=== PATIENT | male | born 1965 | race African-American/Black ===

== ENCOUNTER 2016-07-13 23:29 | Emergency (ER) | payer OTHER ==
[~2016-07-13] VITALS: Ht 172.7 cm; Wt 95.0 kg
[~2016-07-13 23:29] MED LIST: CYCL-36 PO; CYCL1TAB29 PO; DICL75TA PO; GABA300C3 PO; LEVEMIR SQ
[2016-07-13 23:31] VITALS: BP 157/94; PULSE 88; RESP 20; TEMP 97.9; O2SAT 100
[2016-07-14] MEDS ORDERED: LEVEMIR SQ (00:03)
[2016-07-14] MEDS ORDERED: GABA300C5 PO (00:03)
[2016-07-14] MEDS ORDERED: KETOROLAC TROMETHAMINE 60 MG/2 ML (IM) VIAL IM ONE ×2 (00:15→01:00)
[2016-07-14] MEDS ORDERED: ORPHENADRINE INJ 60 MG/2 ML AMP IM ONE (00:15)
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
[2016-07-14 01:07] LABS: AUTOMATED NEUTROPHIL # 3.8 TH/MM3 (1.8-7.7); BASOPHIL % 0.3 % (0.0-2.0); EOSINOPHIL # 0.1 TH/MM3 (0-0.4); EOSINOPHIL % 1.1 % (0.0-4.0); HEMO FLAGS DIFF FINAL; LYMPH % 32.2 % (9.0-44.0); LYMPHOCYTE # 2.1 TH/MM3 (1.0-4.8); MEAN CELL VOLUME 86.2 FL (80.0-100.0); MEAN CORPUSCULAR HEMOGLOBIN 29.4 PG (27.0-34.0); MEAN CORPUSCULAR HGB CONC 34.1 % (32.0-36.0); MONO % 9.9 % (0.0-8.0); NEUT % 56.5 % (16.0-70.0); PLATELET COUNT 291 TH/MM3 (150-450); RED BLOOD COUNT 4.99 MIL/MM3 (4.50-5.90); RED CELL DISTRIBUTION WIDTH 14.1 % (11.6-17.2); WHITE BLOOD COUNT 6.7 TH/MM3 (4.0-11.0)
--- NOTE | 2016-07-14 01:09 | RADRPT ---
EXAM DATE/TIME: 07/14/2016 00:27 [facility] COMPARISON: No previous studies available for comparison. INDICATIONS : Lower back pain. MEDICAL HISTORY : Cardiovascular disease. Hypertension. Hernia, hiatal.Diabetes. SURGICAL HISTORY : None. ENCOUNTER: Initial ACUITY: 4 - 6 months PAIN SCORE: 9/10 LOCATION: Bilateral lower back FINDINGS: The alignment is satisfactory. There is no evidence of fracture or destructive change. Mild degenerat toshia changes present with disc space narrowing most notably at the lumbosacral junction and small endp late osteophytes most notably at L4-5 and L5-S1 levels. CONCLUSION: Mild degenerative change. No acute bony process. Homero Alba MD on July 14, 2016 at 1:05 Board Certified Radiologist. This report was verified electronically.
[2016-07-14 01:15] LABS: AMPHETAMINE, URINE NEG (NEG); BARBITURATES, URINE NEG (NEG); COCAINE, URINE POS (NEG)
[2016-07-14 01:20] LABS: ALT (GPT) 36 U/L (12-78); ANION GAP 8 MEQ/L (5-15); AST (GOT) 16 U/L (15-37); BICARBONATE 26.5 MEQ/L (21.0-32.0); BLOOD UREA NITROGEN 16 MG/DL (7-18); CHLORIDE 104 MEQ/L (98-107); GLOMERULAR FILTRATION RATE 96 ML/MIN (>89); SODIUM (NA) 138 MEQ/L (136-145)
[2016-07-14 01:23] LABS: ALKALINE PHOSPHATASE 137 U/L (45-117); TOTAL BILIRUBIN ADULT 0.3 MG/DL (0.2-1.0)
[2016-07-14] MEDS ORDERED: ROBA500T PO (01:26)
== END 2016-07-14 01:41 | disposition home or self-care (01) ==
LOC: NEPB 23:29
DX: M54.9 Dorsalgia, unspecified (principal); G89.29 Other chronic pain; F12.10 Cannabis abuse, uncomplicated; I10 Essential (primary) hypertension; E11.9 Type 2 diabetes mellitus without complications; K21.9 Gastro-esophageal reflux disease without esophagitis
CPT/HCPCS: 72100; 80053; 80307; 85025; 96372; 99284; J1885; J2360

== ENCOUNTER 2016-09-22 13:49 | Emergency (ER) | payer OTHER ==
[~2016-09-22] VITALS: Ht 172.7 cm; Wt 100.0 kg
[~2016-09-22 13:49] MED LIST changes: -CYCL-36 PO; -CYCL1TAB29 PO; -DICL75TA PO; -GABA300C3 PO; +GABA300C5 PO; +ROBA500T PO
[2016-09-22 13:51] VITALS: BP 158/91; PULSE 100; RESP 20; TEMP 98.4; O2SAT 98
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
[2016-09-22] MEDS ORDERED: ROBA500T PO (15:06)
[2016-09-22] MEDS ORDERED: MISC-274 (15:07)
[2016-09-22] MEDS ORDERED: ORPHENADRINE INJ 60 MG/2 ML AMP IM ONE (15:15)
== END 2016-09-22 15:39 | disposition home or self-care (01) ==
LOC: NEPB 13:49
DX: M54.5 Low back pain (principal); G89.29 Other chronic pain; M54.31 Sciatica, right side; M54.32 Sciatica, left side; E11.9 Type 2 diabetes mellitus without complications; I10 Essential (primary) hypertension; Z72.0 Tobacco use; Z79.4 Long term (current) use of insulin; Z86.2 Personal history of diseases of the blood and blood-forming organs and certain disorders involving the immune mechanism; Z86.79 Personal history of other diseases of the circulatory system; Z87.19 Personal history of other diseases of the digestive system; Z87.39 Personal history of other diseases of the musculoskeletal system and connective tissue; Z86.69 Personal history of other diseases of the nervous system and sense organs; Z86.59 Personal history of other mental and behavioral disorders
CPT/HCPCS: 96372; 99283; J2360

== ENCOUNTER 2016-10-11 09:19 | Emergency (ER) | payer OTHER ==
[~2016-10-11] VITALS: Ht 172.7 cm; Wt 104.5 kg
[~2016-10-11 09:19] MED LIST changes: +MISC-274
[2016-10-11 09:20] VITALS: BP 134/84; PULSE 100; RESP 24; TEMP 97.9; O2SAT 98
[2016-10-11] MEDS ORDERED: LORazepam 2 MG/ML VIAL IM ONE (09:45)
[2016-10-11] MEDS ORDERED: KETOROLAC TROMETHAMINE 60 MG/2 ML (IM) VIAL IM ONE (09:45)
[2016-10-11] MEDS ORDERED: MORPHINE SULFATE 4 MG/ML INJ IM ONE (09:45)
[2016-10-11] MEDS ORDERED: ACETAMINOPHEN/HYDROcodone 325 MG/5 MG TAB PO ONE (10:30)
[2016-10-11 10:31] VITALS: BP 146/91; PULSE 71; RESP 20; O2SAT 99
[2016-10-11] MEDS ORDERED: DIAZ5 PO (11:01)
[2016-10-11] MEDS ORDERED: NORC5TAB PO (11:01)
[2016-10-11] MEDS ORDERED: INSU-277 (11:01)
--- NOTE | 2016-10-11 11:01 | PD ---
HPI Chief Complaint: Hip Injury Time Seen by Provider: 09:35 Travel History International Travel<30 days: No Contact w/Intl Traveler<30days: No Traveled to known affect area: No History of Present Illness HPI Patient is a 51-year-old male here with complaint of left-sided back/buttock pain. Patient states that he has a history of sciatica and it has been " flaring up. He describes a pain in the left low back/buttock that is burning in nature and radiates down the posterior aspect of the left leg with some numbness and tingling. Patient states that he is allergic to ibuprofen and has been using Tylenol at home without much improvement. He denies any bowel or bladder dysfunction, fevers or chills or IV drug abuse. PFSH Past Medical History Anemia: Yes Arthritis: No Asthma: No Autoimmune Disease: No Blood Disorders: No Depression: Yes Heart Rhythm Problems: No Cancer: No Cardiovascular Problems: Yes (HTN) High Cholesterol: No Chemotherapy: No Chest Pain: No Congestive Heart Failure: No COPD: No Cerebrovascular Accident: No Diabetes: Yes Patient Takes Glucophage: No Diminished Hearing: No Endocrine: Yes GERD: Yes Glaucoma: No Genitourinary: No Headaches: No Hepatitis: No Hypertension: Yes Immune Disorder: No Kidney Stones: No Musculoskeletal: Yes (STATES 4 BROKEN BONES IN LEFT KNEE) Neurologic: Yes (NEUROPATHY) Psychiatric: No Reproductive: No Respiratory: No Immunizations Current: Yes Migraines: No Myocardial Infarction: No Radiation Therapy: No Renal Failure: No Schizophrenia: Yes Seizures: No Sickle Cell Disease: No Sleep Apnea: No Thyroid Disease: No Ulcer: No Past Surgical History Abdominal Surgery: No AICD: No Appendectomy: No Arteriovenous Shunt: No Cardiac Surgery: No Cholecystectomy: Yes Ear Surgery: No Endocrine Surgery: No Eye Surgery: No Genitourinary Surgery: No Gynecologic Surgery: No Insulin Pump: No Joint Replacement: No Neurologic Surgery: No Oral Surgery: No Pacemaker: No Thoracic Surgery: No Social History Alcohol Use: No Tobacco Use: Yes (cigars) Substance Use: No Allergies-Medications (Allergen,Severity, Reaction): Coded Allergies: Darvocet-N 100 (Verified Allergy, Severe, STOMACH CRAMPS, 10/11/16) Motrin (Verified Adverse Reaction, Severe, 10/11/16) Ibuprofen (Unverified Adverse Reaction, Mild, 4/17/17) Reported Meds & Prescriptions Reported Meds & Active Scripts Active Folding Walker/5" Wheels (Device) 1 Mis Mis 1 Ea .ROUTE DIRECTED Reported Gabapentin 300 Mg Cap 300 Mg PO BID Levemir Inj (Insulin Detemir) 1,000 unit/ 10 ML Vial 30 Units SQ BID Do not mix with any other Insulin. Review of Systems Except as stated in HPI: all other systems reviewed are Neg Physical Exam Narrative GENERAL: Uncomfortable male SKIN: Focused skin assessment warm/dry. HEAD:Normocephalic. EYES: No scleral icterus. No injection or drainage. ENT: Mucous membranes pink and moist. NECK: Supple CARDIOVASCULAR: Regular rate and rhythm. RESPIRATORY: No accessory muscle use. GASTROINTESTINAL: Obese MUSCULOSKELETAL: No midline tenderness to palpation of the thoracic or lumbar spine. Patient has tenderness to palpation over the left sacroiliac joint which reproduces his symptoms with paresthesias down the left leg. Positive left straight leg raise. Otherwise strength is intact in distal sensations are intact the patient complains of subjective paresthesias. NEUROLOGICAL: Awake and alert. Normal speech. PSYCHIATRIC: Appropriate mood and affect; insight and judgment normal. Data Data Last Documented VS Vital Signs Date Time Temp Pulse Resp B/P Pulse Ox O2 Delivery O2 Flow Rate FiO2 10/11/16 10:31 71 20 146/91 99 10/11/16 09:20 97.9 Room Air Orders Morphine Inj (Morphine Inj) (10/11/16 09:45) Ketorolac Inj (Toradol Inj) (10/11/16 09:45) Lorazepam Inj (Ativan Inj) (10/11/16 09:45) Acetamin-Hydrocod 325-5 Mg (Spencer 5-325 (10/11/16 10:30) MDM Medical Decision Making Medical Screen Exam Complete: Yes Emergency Medical Condition: Yes Medical Record Reviewed: Yes Differential Diagnosis Patient is a 51-year-old male presents the emergency department with complaint of back pain. Exam and history are consistent with recurrent sciatica. No red flags or warning signs to warrant imaging for fracture, cauda equina. Narrative Course Patient was given IM morphine 4 mg, Toradol 30 mg, Ativan 1 mg with some improvement of his pain. He was given 1 dose of oral Spencer and was able to ambulate in the emergency department will be discharged home with outpatient primary care follow-up. Diagnosis Primary Impression: Sciatica Qualified Code: M54.32 - Sciatica of left side Referrals: Primary Care Physician call for appointment Additional Instructions: Spencer as needed for pain. You may alternate this with Tylenol, Motrin, Aleve. Valium as needed for spasms. Primary care provider. Med/Other Pt SpecificInfo: Prescription(s) given Scripts Insulin Syringe/Needle U-500 (Bd Insulin Syringe/U-500/ 31G X 6mm 0.5 ml)1 Mis Mis #1 EA .ROUTE DIRECTED Ref 0 Prov:Cindy Krishnan MD 10/11/16 Diazepam (Valium)5 Mg Tab5 Mg PO TID PRN (SPASM) #21 TAB Ref 0 Prov:Cindy Krishnan MD 10/11/16 Hydrocodone-Acetaminophen (Spencer)5-325 mg Tab1-2 Tab PO Q6H PRN (PAIN) #20 TAB Ref 0 Prov:Cindy Krishnan MD 10/11/16 Disposition: 01 DISCHARGE HOME Condition: Stable Cindy Krishnan MD Oct 11, 2016 11:01
== END 2016-10-11 11:31 | disposition home or self-care (01) ==
LOC: NEPD 09:19
DX: M54.32 Sciatica, left side (principal); I10 Essential (primary) hypertension; E11.9 Type 2 diabetes mellitus without complications; Z72.0 Tobacco use; Z79.4 Long term (current) use of insulin
CPT/HCPCS: 96372; 99283; J1885; J2060; J2270

== ENCOUNTER 2016-10-19 00:18 | Emergency (ER) | payer OTHER ==
[~2016-10-19] VITALS: Ht 172.7 cm; Wt 106.0 kg
[~2016-10-19 00:18] MED LIST changes: +DIAZ5 PO; +INSU-277; +NORC5TAB PO; -ROBA500T PO
[2016-10-19 00:21] VITALS: BP 143/95; PULSE 107; RESP 16; TEMP 97.7; O2SAT 99
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
[2016-10-19] MEDS ORDERED: KETOROLAC TROMETHAMINE 60 MG/2 ML (IM) VIAL IM ONE (01:00)
[2016-10-19] MEDS ORDERED: ORPHENADRINE INJ 60 MG/2 ML AMP IM ONE (01:00)
[2016-10-19] MEDS ORDERED: ROBA500T PO (01:01)
== END 2016-10-19 01:28 | disposition home or self-care (01) ==
LOC: NEPK 00:18
DX: M54.42 Lumbago with sciatica, left side (principal); G89.29 Other chronic pain
CPT/HCPCS: 96372; 99283; J1885; J2360

== ENCOUNTER 2016-11-08 15:08 | Emergency (ER) | payer OTHER ==
[~2016-11-08 15:08] MED LIST changes: +ROBA500T PO
[2016-11-08 15:09] VITALS: BP 130/80; PULSE 90; RESP 24; TEMP 97.5; O2SAT 98
[2016-11-08] MEDS ORDERED: KETOROLAC TROMETHAMINE 60 MG/2 ML (IM) VIAL IM ONE (16:00)
[2016-11-08] MEDS ORDERED: ORPHENADRINE INJ 60 MG/2 ML AMP IM ONE (16:00)
[2016-11-08] MEDS ORDERED: IBUP800T23 PO (16:20)
[2016-11-08] MEDS ORDERED: ROBA500T PO (16:20)
--- NOTE | 2016-11-08 16:21 | PD ---
HPI Chief Complaint: Back/ Neck Pain or Injury Time Seen by Provider: 16:02 Travel History International Travel<30 days: No Contact w/Intl Traveler<30days: No Traveled to known affect area: No History of Present Illness HPI 51-year-old male presents to emergency Department with complaint of worsening of left low back pain and sciatica after his left leg gave out today while he was walking and he fell. He denies hitting his head or loss of consciousness. Denies neck pain. Has history of chronic low back pain with sciatica and has been seen here multiple times with the same complaint. He denies encopresis, incontinence, saddle anesthesias. Reports paresthesias to the left lower leg that are unchanged; denies loss of sensation. Pain radiates down the back of the left leg, which is also unchanged. Denies IV drug use, cancer. Denies fever, vomiting, abdominal pain. Has not taken any medications or tried any treatments to alleviate his symptoms. Dr. CormierNish his primary care provider and according to the patient she refuses to send him to pain management. He has also tried following up at the [facility] and was told that they do not take patient assistance. He has no other medical complaints. No other modifying factors or associated signs and symptoms. PFSH Past Medical History Anemia: Yes Arthritis: No Asthma: No Autoimmune Disease: No Blood Disorders: No Depression: Yes Heart Rhythm Problems: No Cancer: No Cardiovascular Problems: Yes (HTN) High Cholesterol: No Chemotherapy: No Chest Pain: No Congestive Heart Failure: No COPD: No Cerebrovascular Accident: No Diabetes: Yes (METFORMIN) Diminished Hearing: No Endocrine: Yes GERD: Yes Glaucoma: No Genitourinary: No Headaches: No Hepatitis: No Hypertension: Yes Immune Disorder: No Kidney Stones: No Musculoskeletal: Yes (STATES 4 BROKEN BONES IN LEFT KNEE) Neurologic: Yes (NEUROPATHY) Psychiatric: No Reproductive: No Respiratory: No Immunizations Current: Yes Migraines: No Myocardial Infarction: No Radiation Therapy: No Renal Failure: No Schizophrenia: Yes Seizures: No Sickle Cell Disease: No Sleep Apnea: No Thyroid Disease: No Ulcer: No Past Surgical History Abdominal Surgery: No AICD: No Appendectomy: No Arteriovenous Shunt: No Cardiac Surgery: No Cholecystectomy: Yes Ear Surgery: No Endocrine Surgery: No Eye Surgery: No Genitourinary Surgery: No Gynecologic Surgery: No Insulin Pump: No Joint Replacement: No Neurologic Surgery: No Oral Surgery: No Pacemaker: No Thoracic Surgery: No Social History Alcohol Use: No Tobacco Use: Yes (cigars) Substance Use: No Allergies-Medications (Allergen,Severity, Reaction): Coded Allergies: Darvocet-N 100 (Verified Allergy, Severe, STOMACH CRAMPS, 11/08/16) Motrin (Verified Adverse Reaction, Severe, 11/08/16) Ibuprofen (Unverified Adverse Reaction, Mild, 11/08/16) Reported Meds & Prescriptions Reported Meds & Active Scripts Active Ibuprofen 800 Mg Tab 800 Mg PO Q6HR PRN Robaxin (Methocarbamol) 500 Mg Tab 500 Mg PO QID PRN Robaxin (Methocarbamol) 500 Mg Tab 500 Mg PO QID Bd Insulin Syringe/U-500/ 31G X 6mm 0.5 ml (Insulin Syringe/Needle U-500) 1 Mis Mis 1 Ea .ROUTE DIRECTED Valium (Diazepam) 5 Mg Tab 5 Mg PO TID PRN [place] (Hydrocodone-Acetaminophen) 5-325 mg Tab 1-2 Tab PO Q6H PRN Folding Walker/5" Wheels (Device) 1 Mis Mis 1 Ea .ROUTE DIRECTED Reported Gabapentin 300 Mg Cap 300 Mg PO BID Levemir Inj (Insulin Detemir) 1,000 unit/ 10 ML Vial 30 Units SQ BID Do not mix with any other Insulin. Review of Systems Except as stated in HPI: all other systems reviewed are Neg Physical Exam Narrative GENERAL: Well-nourished, well-developed male patient, in no acute distress SKIN: Warm and dry. HEAD: Atraumatic. Normocephalic. EYES: Pupils equal and round. No scleral icterus. No injection or drainage. ENT: Mucosa pink and moist. Airway patent. NECK: Trachea midline. CARDIOVASCULAR: Regular rate. RESPIRATORY: No accessory muscle use. GASTROINTESTINAL: Rounded. MUSCULOSKELETAL: Bilateral lower extremities supple and non-tense with 2+ pedal pulses and sensory intact; with full range of motion and 5/5 strength. Patient ambulatory in the room with cardiac gait to left lower extremity. Active dorsiflexion and extension of bilateral feet. Left straight leg raise is positive for low back pain. Sitting up in bed at 90. No obvious deformities. No clubbing. No cyanosis. No edema. BACK: No midline point tenderness on palpation of the lumbar spine. Tenderness on palpation of left iliosacral area. No obvious deformities. NEUROLOGICAL: Awake and alert. Oriented 3. No obvious cranial nerve deficits. Motor grossly within normal limits. Normal speech. Moves all extremities. 5/5 strength to all extremities. Sensory intact. PSYCHIATRIC: Appropriate mood and affect; insight and judgment normal. Data Data Last Documented VS Vital Signs Date Time Temp Pulse Resp B/P Pulse Ox O2 Delivery O2 Flow Rate FiO2 11/08/16 15:09 97.5 90 24 130/80 98 Room Air Orders Ketorolac Inj (Toradol Inj) (11/08/16 16:00) Orphenadrine Inj (Norflex Inj) (11/08/16 16:00) [facility] Medical Decision Making Medical Screen Exam Complete: Yes Emergency Medical Condition: Yes Medical Record Reviewed: Yes Differential Diagnosis Acute exacerbation of chronic low back pain, sciatica, fall Narrative Course 51-year-old male with history of left-sided chronic low back pain and sciatica presents with worsening of sciatic pain after a fall today. Patient states his legs gave out while he was walking. He denies hitting his head or loss of consciousness. Denies neck pain. Patient has been seen here multiple times with complaint of left-sided low back pain and sciatica. Dr. Mccracken is his primary care provider and apparently refuses sent him to pain management or refer him out to other doctors for further care. He denies encopresis, incontinence, saddle anesthesias. Denies change in paresthesias and radiation of pain to the left leg. Patient is ambulatory in the room with a guarded gait the left lower extremity. He has no midline point tenderness on palpation of the lumbar spine. Toradol and Norflex administered in the ER. Robaxin prescribed for home. Patient has a cane and a walker for support. Patient verbalizes understanding and agreement with treatment plan. Patient is medically cleared and stable for discharge. Discussed reasons to return to the emergency department. Instructed patient to follow up with primary care provider. Patient agrees with treatment plan. The patients vital signs are stable and the patient is stable for outpatient follow-up and treatment. Patient discharged home, stable and in no acute distress. Diagnosis Primary Impression: Chronic low back pain with sciatica Qualified Code: M54.42 - Chronic left-sided low back pain with left-sided sciatica Referrals: Primary Care Physician Patient Instructions: Acute Low Back Pain (ED), General Instructions, Sciatica (ED) Additional Instructions: Tylenol or ibuprofen as directed and as needed for pain Robaxin as prescribed and as needed for muscle spasms Heating pad and/or ice to affected area to reduce pain Avoid aggravating activities; increase activity as tolerated Follow-up with primary care provider Return to emergency department immediately with worsening of symptoms Med/Other Pt SpecificInfo: Prescription(s) given Scripts Methocarbamol (Robaxin)500 Mg [id number] Mg PO QID PRN (MUSCLE SPASM) #30 TAB Ref 0 Prov:Katalina Rosen 11/08/16 Disposition: 01 DISCHARGE HOME Condition: Stable Katalina Rosen November 08, 2016 16:20 Katalina Rosen November 08, 2016 16:20
== END 2016-11-08 16:40 | disposition home or self-care (01) ==
LOC: NEPK 15:08
DX: M54.42 Lumbago with sciatica, left side (principal); G89.29 Other chronic pain; I10 Essential (primary) hypertension; E11.9 Type 2 diabetes mellitus without complications; Z79.4 Long term (current) use of insulin
CPT/HCPCS: 96372; 99283; J1885; J2360

== ENCOUNTER 2016-11-17 22:08 | Inpatient (IN) | payer OTHER ==
[~2016-11-17] VITALS: Ht 172.7 cm; Wt 104.0 kg
[2016-11-17 22:09] VITALS: BP 176/102; PULSE 99; RESP 24; TEMP 98.7; O2SAT 98
--- NOTE | 2016-11-17 22:23 | PD ---
Physical Exam Time Seen by Provider: 22:20 Narrative 51yo M c/o LUQ abd for a couple days. Hx pancreatitis. Reports constipation and vomiting. Unknown fevers. Reports drinking ETOH last week, which he normally doesn't do. Patient seen in triage. VS reviewed. Awaiting bed placement. Data Data Last Documented VS Vital Signs Date Time Temp Pulse Resp B/P Pulse Ox O2 Delivery O2 Flow Rate FiO2 11/17/16 22:09 98.7 99 24 176/102 98 Room Air [facility] Supervised Visit with ELZA: Katalina Mora November 17, 2016 22:23
[2016-11-17] MEDS ORDERED: SODIUM CHLOR 0.9% 1000 ML INJ 1,000 ML IV SCH (22:37)
[2016-11-17] MEDS ORDERED: SODIUM CHLORIDE 0.9% FLUSH 10 ML FLUSH IV FLUSH PRN (22:45)
[2016-11-17] MEDS ORDERED: ONDANSETRON HCL 4 MG/2 ML VIAL IVP ONE (22:45)
[2016-11-17] MEDS ORDERED: LIDOCAINE VISCOUS 2% SOLN 15 ML UDC PO ONE (22:45)
[2016-11-17] MEDS ORDERED: MORPHINE SULFATE 4 MG/ML INJ IV PUSH ONE (22:45)
[2016-11-17] MEDS ORDERED: ALUMINUM/MAGNESIUM/SIMETH 30 ML CUP PO ONE (22:45)
[2016-11-17] MEDS ORDERED: FAMOTIDINE 20 MG/2 ML VIAL IV PUSH ONE (22:45)
[2016-11-17 22:57] LABS: AUTOMATED NEUTROPHIL # 5.9 TH/MM3 (1.8-7.7); BASOPHIL # 0.1 TH/MM3 (0-0.2); BASOPHIL % 0.8 % (0.0-2.0); EOSINOPHIL # 0.1 TH/MM3 (0-0.4); EOSINOPHIL % 1.4 % (0.0-4.0); HEMATOCRIT 43.6 % (39.0-51.0); HEMO FLAGS DIFF FINAL; LYMPH % 23.7 % (9.0-44.0); LYMPHOCYTE # 2.2 TH/MM3 (1.0-4.8); MEAN CELL VOLUME 84.7 FL (80.0-100.0); MEAN CORPUSCULAR HEMOGLOBIN 29.2 PG (27.0-34.0); MEAN CORPUSCULAR HGB CONC 34.5 % (32.0-36.0); MONO % 10.5 % (0.0-8.0); NEUT % 63.6 % (16.0-70.0); PLATELET COUNT 293 TH/MM3 (150-450); RED BLOOD COUNT 5.15 MIL/MM3 (4.50-5.90); RED CELL DISTRIBUTION WIDTH 13.9 % (11.6-17.2); WHITE BLOOD COUNT 9.2 TH/MM3 (4.0-11.0)
--- NOTE | 2016-11-17 22:58 | PD ---
HPI Chief Complaint: Abdominal Pain Time Seen by Provider: 22:27 Travel History International Travel<30 days: No Contact w/Intl Traveler<30days: No Traveled to known affect area: No History of Present Illness HPI Patient is a 51 year old male who presents to ER who presents to the ER for evaluation of abdominal pain. Patient reports that he has been having upper abdominal pain intermittently for the past week. Reports that his symptoms have progressed today and reports that he has not been able to keep down any foods/drinks today. Reports that he began to have severe pain after he ate hot sauce today around 4pm. Reports severe luq pain since 4pm today. Reports that he does have history of alcoholic pancreatitis, reports that he last one drink maybe a week ago but overall quit drinking alcohol. Patient denies chest pain/ sob. Reports n/v. Denies constipation/diarrhea. Denies fever/chills. PFSH Past Medical History Anemia: Yes Arthritis: No Asthma: No Autoimmune Disease: No Blood Disorders: No Depression: Yes Heart Rhythm Problems: No Cancer: No Cardiovascular Problems: Yes (HTN) High Cholesterol: No Chemotherapy: No Chest Pain: No Congestive Heart Failure: No COPD: No Cerebrovascular Accident: No Diabetes: Yes (METFORMIN) Patient Takes Glucophage: Yes Diminished Hearing: No Endocrine: Yes GERD: Yes Glaucoma: No Genitourinary: No Headaches: No Hepatitis: No Hypertension: Yes Immune Disorder: No Kidney Stones: No Musculoskeletal: Yes (STATES 4 BROKEN BONES IN LEFT KNEE) Neurologic: Yes (NEUROPATHY) Psychiatric: No Reproductive: No Respiratory: No Immunizations Current: Yes Migraines: No Myocardial Infarction: No Radiation Therapy: No Renal Failure: No Schizophrenia: Yes Seizures: No Sickle Cell Disease: No Sleep Apnea: No Thyroid Disease: No Ulcer: No Tetanus Vaccination: > 5 Years Influenza Vaccination: No Past Surgical History Abdominal Surgery: No AICD: No Appendectomy: No Arteriovenous Shunt: No Cardiac Surgery: No Cholecystectomy: Yes Ear Surgery: No Endocrine Surgery: No Eye Surgery: No Genitourinary Surgery: No Gynecologic Surgery: No Insulin Pump: No Joint Replacement: No Neurologic Surgery: No Oral Surgery: No Pacemaker: No Thoracic Surgery: No Social History Alcohol Use: No Tobacco Use: Yes (cigars) Substance Use: No Allergies-Medications (Allergen,Severity, Reaction): Coded Allergies: Darvocet-N 100 (Verified Allergy, Severe, STOMACH CRAMPS, 11/17/16) Motrin (Verified Adverse Reaction, Severe, 11/17/16) Ibuprofen (Unverified Adverse Reaction, Mild, 11/17/16) Reported Meds & Prescriptions Reported Meds & Active Scripts Active Robaxin (Methocarbamol) 500 Mg Tab 500 Mg PO QID PRN Reported Levemir Inj (Insulin Detemir) 1,000 unit/ 10 ML Vial 25 Units SQ BID Do not mix with any other Insulin. Review of Systems General / Constitutional: No: Fever Eyes: No: Visual changes HENT: No: Headaches Cardiovascular: No: Chest Pain or Discomfort Respiratory: No: Shortness of Breath Gastrointestinal: Positive: Nausea, Vomiting, Abdominal Pain, No: Diarrhea, Constipation Genitourinary: No: Dysuria Musculoskeletal: No: Pain Skin: No Rash Neurologic: No: Weakness Psychiatric: No: Depression Endocrine: No: Polydipsia Hematologic/Lymphatic: No: Easy Bruising Physical Exam Narrative GENERAL: moderate distress SKIN: Focused skin assessment warm/dry. HEAD: Atraumatic. Normocephalic. EYES: No injection or drainage. ENT: No nasal bleeding or discharge. Mucous membranes pink and moist. NECK: Trachea midline. No JVD. CARDIOVASCULAR: Regular rate and rhythm. No murmur appreciated. RESPIRATORY: No accessory muscle use. Clear to auscultation. Breath sounds equal bilaterally. GASTROINTESTINAL: Abdomen soft, patient with increased tenderness to LUQ, no rebound or guarding on exam. MUSCULOSKELETAL: No obvious deformities. No clubbing. No cyanosis. No edema. NEUROLOGICAL: Awake and alert. No obvious cranial nerve deficits. Motor grossly within normal limits. Normal speech. PSYCHIATRIC: Appropriate mood and affect; insight and judgment normal. Data Data Last Documented VS Vital Signs Date Time Temp Pulse Resp B/P Pulse Ox O2 Delivery O2 Flow Rate FiO2 11/17/16 23:01 98 Room Air 11/17/16 23:00 88 12 146/84 11/17/16 22:09 98.7 Orders Complete Blood Count With Diff (11/17/16 22:37) Comprehensive Metabolic Panel (11/17/16 22:37) Lipase (11/17/16 22:37) Prothrombin Time / Inr (Pt) (11/17/16 22:37) Act Partial Throm Time (Ptt) (11/17/16 22:37) Urinalysis - C+S If Indicated (11/17/16 22:37) Iv Access Insert/Monitor (11/17/16 22:37) Ecg Monitoring (11/17/16 22:37) Oximetry (11/17/16 22:37) NPO (11/17/16 22:37) Morphine Inj (Morphine Inj) (11/17/16 22:45) Ondansetron Inj (Zofran Inj) (11/17/16 22:45) Sodium Chlor 0.9% 1000 Ml Inj (Ns 1000 M (11/17/16 22:37) Sodium Chloride 0.9% Flush (Ns Flush) (11/17/16 22:45) Electrocardiogram (11/17/16 22:37) Chest, Single Ap (11/17/16 22:37) Famotidine Inj (Pepcid Inj) (11/17/16 22:45) Al-Mag Hy-Si 40-40-4 Mg/Ml Liq (Mag-Al P (11/17/16 22:45) Lidocaine 2% Viscous (Xylocaine 2% Visco (11/17/16 22:45) Hydromorphone Pf Inj (Dilaudid Pf Inj) (11/17/16 23:30) Ct Abd/Pel W Iv Contrast(Rout) (11/18/16 00:05) Iohexol 350 Inj (Omnipaque 350 Inj) (11/18/16 00:55) Morphine Inj (Morphine Inj) (11/18/16 01:15) Admit Order (Ed Use Only) (11/18/16 01:17) Labs Laboratory Tests Test 11/17/16 11/18/16 22:44 00:10 White Blood Count 9.2 TH/MM3 Red Blood Count 5.15 MIL/MM3 Hemoglobin 15.1 GM/DL Hematocrit 43.6 % Mean Corpuscular Volume 84.7 FL Mean Corpuscular Hemoglobin 29.2 PG Mean Corpuscular Hemoglobin 34.5 % Concent Red Cell Distribution Width 13.9 % Platelet Count 293 TH/MM3 Mean Platelet Volume 8.5 FL Neutrophils (%) (Auto) 63.6 % Lymphocytes (%) (Auto) 23.7 % Monocytes (%) (Auto) 10.5 % Eosinophils (%) (Auto) 1.4 % Basophils (%) (Auto) 0.8 % Neutrophils # (Auto) 5.9 TH/MM3 Lymphocytes # (Auto) 2.2 TH/MM3 Monocytes # (Auto) 1.0 TH/MM3 Eosinophils # (Auto) 0.1 TH/MM3 Basophils # (Auto) 0.1 TH/MM3 CBC Comment DIFF FINAL Differential Comment Prothrombin Time 10.7 SEC Prothromb Time International 1.0 RATIO Ratio Activated Partial 29.0 SEC Thromboplast Time Sodium Level 137 MEQ/L Potassium Level 4.1 MEQ/L Chloride Level 102 MEQ/L Carbon Dioxide Level 24.0 MEQ/L Anion Gap 11 MEQ/L Blood Urea Nitrogen 14 MG/DL Creatinine 0.93 MG/DL Random Glucose 285 MG/DL Calcium Level 8.9 MG/DL Total Bilirubin 0.4 MG/DL Aspartate Amino Transf 11 U/L (AST/SGOT) Alanine Aminotransferase 23 U/L (ALT/SGPT) Alkaline Phosphatase 95 U/L Total Protein 7.8 GM/DL Albumin 3.8 GM/DL Lipase 2308 U/L Urine Color YELLOW Urine Turbidity CLEAR Urine pH 6.0 Urine Specific [place] 1.017 Urine Protein NEG mg/dL Urine Glucose (UA) 1000 mg/dL Urine Ketones 40 mg/dL Urine Occult Blood NEG Urine Nitrite NEG Urine Bilirubin NEG Urine Urobilinogen LESS THAN 2.0 MG/DL Urine Leukocyte Esterase NEG Urine RBC 1 /hpf Urine WBC 1 /hpf Urine Squamous Epithelial <1 /hpf Cells Microscopic Urinalysis Comment CULT NOT INDICATED MDM Medical Decision Making Medical Screen Exam Complete: Yes Emergency Medical Condition: Yes Interpretation(s) EKG at 2246: NSR at 90bpm, qt/qtc: 338/386, no acute st or t wave changes Vital Signs Date Time Temp Pulse Resp B/P Pulse Ox O2 Delivery O2 Flow Rate FiO2 11/17/16 22:23 16 11/17/16 22:09 98.7 99 24 176/102 98 Room Air Differential Diagnosis Gastroenteritis, gastric ulcer, pancreatitis, colitis, electrolyte abnormality, ACS Narrative Course Patient is a 51-year-old male presents with complaints of abdominal pain for the past week. Patient reports that symptoms have progressed today and he has associated nausea vomiting, that he is unable to eat or drink anything today. Reports that he tried eating something with hot sauce in it around 4pm and reports - "i feel like my stomach is burning." Patient reports history of pancreatitis in the past - reports concern for possible gastroenteritis. Patient is uncomfortable on evaluation. Plan to obtain labs including lipase. CT abd/pelvis ordered to evaluate for abdominal pathology. IVF as well as pain medications and antiemetics were ordered. Patient reports allergy to darvocet - reports that he has had morphine in the past without difficultly. xray of chest ordered to evaluate for free air. Vital Signs Date Time Temp Pulse Resp B/P Pulse Ox O2 Delivery O2 Flow Rate FiO2 11/17/16 23:01 98 Room Air 11/17/16 23:00 88 12 146/84 99 Room Air 11/17/16 22:23 16 11/17/16 22:09 98.7 99 24 176/102 98 Room Air Laboratory Tests Test 11/17/16 11/18/16 22:44 00:10 White Blood Count 9.2 TH/MM3 (4.0-11.0) Red Blood Count 5.15 MIL/MM3 (4.50-5.90) Hemoglobin 15.1 GM/DL (13.0-17.0) Hematocrit 43.6 % (39.0-51.0) Mean Corpuscular Volume 84.7 FL (80.0-100.0) Mean Corpuscular Hemoglobin 29.2 PG (27.0-34.0) Mean Corpuscular Hemoglobin 34.5 % Concent (32.0-36.0) Red Cell Distribution Width 13.9 % (11.6-17.2) Platelet Count 293 TH/MM3 (150-450) Mean Platelet Volume 8.5 FL (7.0-11.0) Neutrophils (%) (Auto) 63.6 % (16.0-70.0) Lymphocytes (%) (Auto) 23.7 % (9.0-44.0) Monocytes (%) (Auto) 10.5 % (0.0-8.0) Eosinophils (%) (Auto) 1.4 % (0.0-4.0) Basophils (%) (Auto) 0.8 % (0.0-2.0) Neutrophils # (Auto) 5.9 TH/MM3 (1.8-7.7) Lymphocytes # (Auto) 2.2 TH/MM3 (1.0-4.8) Monocytes # (Auto) 1.0 TH/MM3 (0-0.9) Eosinophils # (Auto) 0.1 TH/MM3 (0-0.4) Basophils # (Auto) 0.1 TH/MM3 (0-0.2) CBC Comment DIFF FINAL Differential Comment Prothrombin Time 10.7 SEC (9.8-11.6) Prothromb Time International 1.0 RATIO Ratio Activated Partial 29.0 SEC Thromboplast Time (24.3-30.1) Sodium Level 137 MEQ/L (136-145) Potassium Level 4.1 MEQ/L (3.5-5.1) Chloride Level 102 MEQ/L (98-107) Carbon Dioxide Level 24.0 MEQ/L (21.0-32.0) Anion Gap 11 MEQ/L (5-15) Blood Urea Nitrogen 14 MG/DL (7-18) Creatinine 0.93 MG/DL (0.60-1.30) Random Glucose 285 MG/DL (74-106) Calcium Level 8.9 MG/DL (8.5-10.1) Total Bilirubin 0.4 MG/DL (0.2-1.0) Aspartate Amino Transf 11 U/L (15-37) (AST/SGOT) Alanine Aminotransferase 23 U/L (12-78) (ALT/SGPT) Alkaline Phosphatase 95 U/L (45-117) Total Protein 7.8 GM/DL (6.4-8.2) Albumin 3.8 GM/DL (3.4-5.0) Lipase 2308 U/L (73-393) Urine Color YELLOW (YELLW/STRAW) Urine Turbidity CLEAR (CLEAR) Urine pH 6.0 (5.0-8.5) Urine Specific [place] 1.017 (1.002-1.035) Urine Protein NEG mg/dL (NEG-TRACE) Urine Glucose (UA) 1000 mg/dL (NEG) Urine Ketones 40 mg/dL (NEG) Urine Occult Blood NEG (NEG) Urine Nitrite NEG (NEG) Urine Bilirubin NEG (NEG) Urine Urobilinogen LESS THAN 2.0 MG/DL (LESS THAN 2.0) Urine Leukocyte Esterase NEG (NEG) Urine RBC 1 /hpf (0-3) Urine WBC 1 /hpf (0-5) Urine Squamous Epithelial <1 /hpf (0-5) Cells Microscopic Urinalysis Comment CULT NOT INDICATED Last Impressions Chest X-Ray 11/17/16 3915 Signed Impressions: Service Date/Time: Thursday, November 17, 2016 22:54 - CONCLUSION: Normal examination. Bridger Wells MD ct of abdomen and pelvis shows some indistinctness of the pancreatic head suspicious for pancreatitis. I reviewed all studies and findings with patient. patient reports intractable pain and reports that he does not feel comfortable going home with this pain. plan to remedicate and obs to medicine service. case reviewed with dr. brandt who accepts pt to service Diagnosis Primary Impression: Acute pancreatitis Qualified Code: K85.90 - Acute pancreatitis, unspecified complication status, unspecified pancreatitis type Admitting Information Admitting Physician Requests: Observation Adore Johnson DO November 17, 2016 22:58
[2016-11-17 23:00] VITALS: BP 146/84; PULSE 88; RESP 12; O2SAT 99
[2016-11-17 23:01] VITALS: O2SAT 98
--- NOTE | 2016-11-17 23:03 | RADRPT ---
EXAM DATE/TIME: 11/17/2016 22:54 [facility] COMPARISON: CHEST SINGLE AP, January 13, 2016, 19:41. INDICATIONS : Low chest pain, vomiting. MEDICAL HISTORY : Cardiovascular disease. Hypertension. Hernia, hiatal. Diabetes. SURGICAL HISTORY : None. ENCOUNTER: Initial ACUITY: 2 days PAIN SCORE: 9/10 LOCATION: low chest/upper abdomen. FINDINGS: A single view of the chest demonstrates the lungs to be symmetrically aerated without evidence of mas s, infiltrate or effusion. The cardiomediastinal contours are unremarkable. Osseous structures are intact. CONCLUSION: Normal examination. Bridger Wells MD on November 17, 2016 at 23:01 Board Certified Radiologist. This report was verified electronically.
[2016-11-17 23:09] LABS: PROTHROMBIN TIME - PATIENT 10.7 SEC (9.8-11.6)
[2016-11-17 23:12] LABS: ALT (GPT) 23 U/L (12-78); ANION GAP 11 MEQ/L (5-15); AST (GOT) 11 U/L (15-37); BLOOD UREA NITROGEN 14 MG/DL (7-18); CHLORIDE 102 MEQ/L (98-107); POTASSIUM 4.1 MEQ/L (3.5-5.1); SODIUM (NA) 137 MEQ/L (136-145)
[2016-11-17 23:14] LABS: ALKALINE PHOSPHATASE 95 U/L (45-117); TOTAL BILIRUBIN ADULT 0.4 MG/DL (0.2-1.0)
[2016-11-17] MEDS ORDERED: HYDROmorphone HCL PF 2 MG/ML VIAL IVS ONE (23:30)
[2016-11-18] VITALS (9 sets, daily range): BP systolic 134–173; BP diastolic 74–103; PULSE 71–91; RESP 16–19; TEMP 96.8–98.4; O2SAT 96–98
[2016-11-18 00:24] LABS: BLOOD, URINE NEG (NEG); GLUCOSE,URINE 1000 mg/dL (NEG); KETONE, URINE 40 mg/dL (NEG); NITRITE,URINE NEG (NEG); SQUAMOUS EPITHELIAL CELL URINE <1 /hpf (0-5); URINE COLOR YELLOW (YELLW/STRAW)
[2016-11-18 00:43] LABS: COMMENT (UR) CULT NOT INDICATED; CULTURE IF INDICATED CULT NOT INDICATED
[2016-11-18] MEDS ORDERED: IOHEXOL 350 MG/ML 10 ML VIAL (for RAD DIAG) IV ONE (00:55)
--- NOTE | 2016-11-18 01:04 | RADRPT ---
EXAM DATE/TIME: 11/18/2016 00:48 [facility] COMPARISON: CT ABDOMEN & PELVIS W CONTRAST, February 17, 2016, 22:44. INDICATIONS : Right upper qaudrant pain. IV CONTRAST: 100 cc Omnipaque 350 (iohexol) IV ORAL CONTRAST: No oral contrast ingested. RADIATION DOSE: 15.63 CTDIvol (mGy) MEDICAL HISTORY : Hypertension. Diabetes mellitus type 2. Gastroesophageal reflux disease.Hiatal hernia SURGICAL HISTORY : Cholecystectomy. ENCOUNTER: Initial ACUITY: 1 day PAIN SCALE: 10/10 LOCATION: Right upper quadrant TECHNIQUE: Volumetric scanning of the abdomen and pelvis was performed. Using automated exposure control and ad justment of the mA and/or kV according to patient size, radiation dose was kept as low as reasonably achievable to obtain optimal diagnostic quality images. FINDINGS: LOWER LUNGS: The visualized lower lungs are clear. LIVER: Homogeneous density without lesion. There is no dilation of the biliary tree. Cholecystectomy clips. SPLEEN: Normal size without lesion. PANCREAS: Some indistinctness of the pancreatic head and possible pancreatitis. KIDNEYS: Normal in size and shape. There is no mass, stone or hydronephrosis. ADRENAL GLANDS: Within normal limits. VASCULAR: There is no aortic aneurysm. BOWEL/MESENTERY: The stomach, small bowel, and colon demonstrate no acute abnormality. There is no free intraperitone al air or fluid. ABDOMINAL WALL: Anterior abdominal wall hernia containing fat. RETROPERITONEUM: There is no lymphadenopathy. BLADDER: No wall thickening or mass. REPRODUCTIVE: Within normal limits. INGUINAL: There is no lymphadenopathy or hernia. Single clip left inguinal region MUSCULOSKELETAL: Within normal limits for patient age. CONCLUSION: Some indistinctness of the pancreatic head suspicious for pancreatitis. Fatty abdominal wall umbilic al hernia. Bridger Wells MD on November 18, 2016 at 1:01 Board Certified Radiologist. This report was verified electronically.
[2016-11-18] MEDS ORDERED: MORPHINE SULFATE 8 MG/ML INJ IV PUSH ONE (01:15)
[2016-11-18] MEDS ORDERED: NALOXONE HCL 0.4 MG/ML AMP IV PRN (01:30)
[2016-11-18] MEDS ORDERED: ONDANSETRON HCL 4 MG/2 ML VIAL IVP PRN (01:30)
--- NOTE | 2016-11-18 02:13 | HHI.HP ---
[facility] Anuradha Mccracken MD Admission Diagnosis Acute pancreatitis Diagnoses: Travel History International Travel<30 Days: No Contact w/Intl Traveler <30 Da: No Traveled to Known Affected Are: No History of Present Illness History from patient, ER physician communication, and review of medical records. Patient reported that he came to the hospital because he was having abdominal pain for the past 5 days. He pointed to the left upper quadrant and midepigastrium. He reports that the pain was initially going away and then Mother's Day, he had 3 drinks for celebration and the pain returned back. He reports he also had some hot sauce with chicken wings which made the pain worse. He denies any alcoholism at present. He stated he quit drinking heavily a few years ago. Denies fever. denies diarrhea. In fact he stated he was constipated for past few days. When he finally made his bowel movements, he denies blood in his stool or urine denies urinary burning or pain on urination Review of Systems Except as stated in HPI: all other systems reviewed are Neg Past Family Social History Past Medical History dm hunt parkinson white syndrome Past Surgical History cholecystectomy right finger surgery Allergies: Coded Allergies: Darvocet-N 100 (Verified Allergy, Severe, STOMACH CRAMPS, 11/17/16) Motrin (Verified Adverse Reaction, Severe, 11/17/16) Ibuprofen (Unverified Adverse Reaction, Mild, 11/17/16) Family History mom htn, dm, heart problems dad dm grandma- heart problems Social History smokes a pack a day drinking only once in a blue yoo now used to use cocaine, but quit 6-7 months ago Physical Exam Vital Signs Vital Signs Date Time Temp Pulse Resp B/P Pulse Ox O2 Delivery O2 Flow Rate FiO2 11/17/16 23:01 98 Room Air 11/17/16 23:00 88 12 146/84 99 Room Air 11/17/16 22:23 16 11/17/16 22:09 98.7 99 24 176/102 98 Room Air Physical Exam GENERAL: This is a well-nourished, well-developed patient, in no apparent distress. SKIN: No rashes, ecchymoses or lesions. Cool and dry. HEAD: Atraumatic. Normocephalic. No temporal or scalp tenderness. EYES: . No scleral icterus. No injection or drainage. ENT: Nose without bleeding, purulent drainage or septal hematoma. Airway patent. NECK: Trachea midline. No JVD Supple, nontender, no meningeal signs. CARDIOVASCULAR: Regular rate and rhythm without murmurs, gallops, or rubs. RESPIRATORY: Clear to auscultation. Breath sounds equal bilaterally. No wheezes , rales, or rhonchi. GASTROINTESTINAL: Abdomen soft, non-tender, nondistended. No guarding. MUSCULOSKELETAL: Extremities without clubbing, cyanosis, or edema. . No calf tenderness. NEUROLOGICAL: Awake and alert. Motor and sensory grossly within normal limits. Normal speech. Laboratory Laboratory Tests Test 11/17/16 11/18/16 22:44 00:10 White Blood Count 9.2 Red Blood Count 5.15 Hemoglobin 15.1 Hematocrit 43.6 Mean Corpuscular Volume 84.7 Mean Corpuscular Hemoglobin 29.2 Mean Corpuscular Hemoglobin 34.5 Concent Red Cell Distribution Width 13.9 Platelet Count 293 Mean Platelet Volume 8.5 Neutrophils (%) (Auto) 63.6 Lymphocytes (%) (Auto) 23.7 Monocytes (%) (Auto) 10.5 Eosinophils (%) (Auto) 1.4 Basophils (%) (Auto) 0.8 Neutrophils # (Auto) 5.9 Lymphocytes # (Auto) 2.2 Monocytes # (Auto) 1.0 Eosinophils # (Auto) 0.1 Basophils # (Auto) 0.1 CBC Comment DIFF FINAL Differential Comment Prothrombin Time 10.7 Prothromb Time International 1.0 Ratio Activated Partial 29.0 Thromboplast Time Sodium Level 137 Potassium Level 4.1 Chloride Level 102 Carbon Dioxide Level 24.0 Anion Gap 11 Blood Urea Nitrogen 14 Creatinine 0.93 Random Glucose 285 Calcium Level 8.9 Total Bilirubin 0.4 Aspartate Amino Transf 11 (AST/SGOT) Alanine Aminotransferase 23 (ALT/SGPT) Alkaline Phosphatase 95 Total Protein 7.8 Albumin 3.8 Lipase 2308 Urine Color YELLOW Urine Turbidity CLEAR Urine pH 6.0 Urine Specific [place] 1.017 Urine Protein NEG Urine Glucose (UA) 1000 Urine Ketones 40 Urine Occult Blood NEG Urine Nitrite NEG Urine Bilirubin NEG Urine Urobilinogen LESS THAN 2.0 Urine Leukocyte Esterase NEG Urine RBC 1 Urine WBC 1 Urine Squamous Epithelial <1 Cells Microscopic Urinalysis Comment CULT NOT INDICATED Result Diagram: 11/17/16224311/17/162243 Imaging Last 48 hours Impressions Abdomen/Pelvis CT 11/18/16 0005 Signed Impressions: Service Date/Time: October 00:48 - CONCLUSION: Some indistinctness of the pancreatic head suspicious for pancreatitis. Fatty abdominal wall umbilical hernia. Bridger Wells MD Chest X-Ray 11/17/167 Signed Impressions: Service Date/Time: Thursday, November 17, 2016 22:54 - CONCLUSION: Normal examination. Bridger Wells MD Assessment and Plan Assessment and Plan Impression: Acute pancreatitis Hyperglycemia Glucosuria History of Diabetes History of Peña Parkinson White syndrome Plan: IV fluids. Start clear liquid diet and advance as tolerated. Monitor fingersticks and cover with sliding scale coverage small dose as patient is tolerating by mouth feeding for now. Pain control. DVT prophylaxis with lovenox Discussed Condition With patient, ER MD, nursin staff William Montes MD November 18, 2016 02:13
[2016-11-18] MEDS: SODIUM CHLOR 0.9% 1000 ML INJ 1,000 ML IV SCH ×3 (02:30→21:00)
[2016-11-18] MEDS: HYDROmorphone HCL PF 1 MG/ML VIAL IV PUSH PRN ×2 (03:33→07:35)
[2016-11-18] MEDS ORDERED: DEXTROSE 50% IN WATER 50 ML VIAL(D50) IV PRN (06:00)
[2016-11-18] MEDS ORDERED: GLUCAGON 1 MG/ML VIAL OTHER PRN (06:00)
[2016-11-18] MEDS: INSULIN ASPART SUPPLEMENTAL SCALE SQ SCH ×4 (06:12→20:56)
[2016-11-18] MEDS: SODIUM CHLORIDE 0.9% FLUSH 10 ML FLUSH IV FLUSH SCH ×2 (07:37→20:58)
[2016-11-18] MEDS: ENOXAPARIN SODIUM 40 MG/0.4 ML SYRINGE SQ SCH (09:00)
[2016-11-18] MEDS: diphenhydrAMINE HCL 25 MG CAP PO PRN ×2 (10:14→22:16)
[2016-11-18 12:33] LABS: HDL CHOLESTEROL 36.2 MG/DL (40.0-60.0)
[2016-11-18] MEDS: MORPHINE SULFATE 4 MG/ML INJ IV PUSH PRN ×3 (12:33→20:57)
--- NOTE | 2016-11-18 13:13 | HHI.PR ---
Subjective Remarks Follow-up for pancreatitis. The patient continues to have left upper abdominal bloating and pain. He states he was nauseated about an hour ago, but did not vomit. He is asking to eat solid food. Tolerating clear liquids. He states he has been refusing short acting insulin because it makes his blood sugar drops too fast. He complains of constipation. He has chronic sciatica and neuropathic pain, requesting Lyrica to be restarted. He states that in the past pancreatitis his pain was controlled with Percocet. The patient has itching with Dilaudid. Objective Vitals Vital Signs Date Time Temp Pulse Resp B/P Pulse Ox O2 Delivery O2 Flow Rate FiO2 11/18/16 13:05 18 11/18/16 11:29 98.4 80 16 134/74 97 11/18/16 09:20 19 98 11/18/16 07:35 98.3 82 16 143/84 96 11/18/16 04:49 87 11/18/16 02:32 91 18 137/78 98 Room Air 11/17/16 23:01 98 Room Air 11/17/16 23:00 88 12 146/84 99 Room Air 11/17/16 22:23 16 11/17/16 22:09 98.7 99 24 176/102 98 Room Air I/O 11/17/16 11/17/16 11/17/16 11/18/16 11/18/16 11/18/16 06:59 14:59 22:59 06:59 14:59 22:59 Output Total 1100 ml Balance -1100 ml Output Urine Total 1100 ml # Voids 1 Result Diagram: 11/17/16224311/17/162243 Imaging Last Impressions Abdomen/Pelvis CT 11/18/16 0005 Signed Impressions: Service Date/Time: October 00:48 - CONCLUSION: Some indistinctness of the pancreatic head suspicious for pancreatitis. Fatty abdominal wall umbilical hernia. Bridger Wells MD Chest X-Ray 11/17/162236 Signed Impressions: Service Date/Time: Thursday, November 17, 2016 22:54 - CONCLUSION: Normal examination. Bridger Wells MD Objective Remarks GENERAL: Well-developed well-nourished. In no acute distress. SKIN: Warm and dry. No lesions noted. HEENT: Normocephalic. Pupils equal and round. Mucous membranes pink and moist. CARDIOVASCULAR: Regular rate and rhythm. No murmur appreciated. RESPIRATORY: No accessory muscle use. Clear to auscultation. Breath sounds equal bilaterally. GASTROINTESTINAL: Abdomen soft, LUQ AND PERIUMBILICAL TTP, nondistended. Decreased bowel sounds. MUSCULOSKELETAL: No obvious deformities. No clubbing or cyanosis. No edema. NEUROLOGICAL: Awake and alert. No focal neurological deficits. Moves upper and lower extremities spontaneously. Normal speech. PSYCHIATRIC: Appropriate mood and affect; insight and judgment normal. A/P Assessment and Plan 51-year-old male with a past medical history of diabetes and pancreatitis who presented with abdominal pain Acute pancreatitis: After having 3 alcoholic beverages on Mother's Day, otherwise no alcohol use. Reviewed: Lipase 2300. Abdominal CT with some indistinctness of the pancreatic head and suspicious for pancreatitis. -IVF -PPI -Pain control with Percocet and IV morphine -Clear liquids for now pending clinical improvement -Follow up labs in the a.m. Diabetes mellitus: Not well controlled as patient is refusing short acting insulin. Decrease home Levemir dose in half for now until diet is advanced. Monitor Accu-Cheks. Sliding scale coverage if needed. Continue Lyrica for neuropathy. Constipation: Likely secondary to narcotic pain medication. Melodie-Colace. Milk of magnesia as needed. DVT prophylaxis: Lovenox Discharge Planning Case management consulted for assistance with outpatient follow-up Geovanny Michelle November 18, 2016 13:13
[2016-11-18] MEDS ORDERED: MAGNESIUM HYDROXIDE SUSP 30 ML CUP PO PRN (13:15)
[2016-11-18] MEDS: DOCUSATE SODIUM 50 MG/SENNA 8.6 MG TAB PO SCH ×2 (13:49→20:55)
[2016-11-18] MEDS: PREGABALIN 100 MG CAP PO SCH ×2 (13:49→20:55)
[2016-11-18] MEDS: INSULIN DETEMIR 100 UNITS/ML VIAL SQ SCH ×2 (13:51→20:56)
[2016-11-18] MEDS: PANTOPRAZOLE SOD 40 MG DELAYED RELEASE TAB PO SCH (15:49)
--- NOTE | 2016-11-18 17:09 | EKG ---
Date Performed: 11/17/2016 Time Performed: 22:46:00 PTAGE: 51 years EKG: Sinus rhythm NORMAL ECG PREVIOUS TRACING : 01/13/2016 19.52 Compared to prior tracing no significant change DOCTOR: Faustino Palafox Interpretating Date/Time 11/18/2016 17:09:05
[2016-11-18] MEDS: oxyCODONE/ACETAMINOPHEN 5 MG/325 MG TAB PO PRN (18:34)
[2016-11-19] VITALS: BP 150/83; PULSE 75; RESP 16; TEMP 97.7; O2SAT 96
[2016-11-19] MEDS: oxyCODONE/ACETAMINOPHEN 5 MG/325 MG TAB PO PRN ×4 (02:25→20:47)
[2016-11-19] MEDS: MORPHINE SULFATE 4 MG/ML INJ IV PUSH PRN ×4 (05:17→19:47)
[2016-11-19 05:33] LABS: AUTOMATED NEUTROPHIL # 4.6 TH/MM3 (1.8-7.7); BASOPHIL % 0.2 % (0.0-2.0); EOSINOPHIL # 0.1 TH/MM3 (0-0.4); EOSINOPHIL % 1.7 % (0.0-4.0); HEMATOCRIT 40.2 % (39.0-51.0); HEMO FLAGS DIFF FINAL; LYMPH % 20.4 % (9.0-44.0); LYMPHOCYTE # 1.5 TH/MM3 (1.0-4.8); MEAN CELL VOLUME 85.5 FL (80.0-100.0); MEAN CORPUSCULAR HEMOGLOBIN 29.4 PG (27.0-34.0); MEAN CORPUSCULAR HGB CONC 34.4 % (32.0-36.0); MONO % 13.2 % (0.0-8.0); NEUT % 64.5 % (16.0-70.0); PLATELET COUNT 243 TH/MM3 (150-450); RED CELL DISTRIBUTION WIDTH 13.7 % (11.6-17.2); WHITE BLOOD COUNT 7.1 TH/MM3 (4.0-11.0)
[2016-11-19 05:50] LABS: ALKALINE PHOSPHATASE 82 U/L (45-117); ALT (GPT) 18 U/L (12-78); ANION GAP 7 MEQ/L (5-15); AST (GOT) 10 U/L (15-37); BICARBONATE 29.1 MEQ/L (21.0-32.0); BLOOD UREA NITROGEN 7 MG/DL (7-18); CHLORIDE 105 MEQ/L (98-107); GLOMERULAR FILTRATION RATE 126 ML/MIN (>89); SODIUM (NA) 141 MEQ/L (136-145); TOTAL BILIRUBIN ADULT 0.4 MG/DL (0.2-1.0)
[2016-11-19] MEDS: INSULIN ASPART SUPPLEMENTAL SCALE SQ SCH ×4 (06:24→20:46)
[2016-11-19] MEDS: SODIUM CHLOR 0.9% 1000 ML INJ 1,000 ML IV SCH ×3 (06:27→22:13)
[2016-11-19] MEDS: PREGABALIN 100 MG CAP PO SCH ×3 (06:27→20:47)
[2016-11-19 08:00] VITALS: BP 152/91; PULSE 73; RESP 18; TEMP 98.1; O2SAT 97
[2016-11-19] MEDS: PANTOPRAZOLE SOD 40 MG DELAYED RELEASE TAB PO SCH (08:07)
[2016-11-19] MEDS: SODIUM CHLORIDE 0.9% FLUSH 10 ML FLUSH IV FLUSH SCH ×2 (08:08→20:09)
[2016-11-19] MEDS: ENOXAPARIN SODIUM 40 MG/0.4 ML SYRINGE SQ SCH (08:08)
[2016-11-19] MEDS: DOCUSATE SODIUM 50 MG/SENNA 8.6 MG TAB PO SCH ×2 (08:08→19:49)
[2016-11-19] MEDS: INSULIN DETEMIR 100 UNITS/ML VIAL SQ SCH ×2 (08:13→20:46)
[2016-11-19 12:00] VITALS: BP 162/90; PULSE 83; RESP 18; TEMP 97.3; O2SAT 96
[2016-11-19 16:00] VITALS: BP 174/100; PULSE 93; RESP 18; TEMP 97.7; O2SAT 97
[2016-11-19] MEDS: METHOCARBAMOL 500 MG TAB PO PRN ×2 (16:12→22:14)
[2016-11-19 16:28] LABS: HEMOGLOBIN A1a 1.4 %; HEMOGLOBIN A1b 0.9 %; HEMOGLOBIN Ao 76.2 %; HEMOGLOBIN F 1.8 %; HEMOGLOBIN LA1C 2.6 %; HEMOGLOBIN P3 4.7 %
--- NOTE | 2016-11-19 16:43 | PD.CONS ---
HPI History of Present Illness This is a 51 year old [gentleman] who came to the hospital yesterday for LUQ pain. The pain started a week ago and gradually worsened to the point he recognized it from a previous pancreatitis attack and came in. He also had nausea and vomiting for the last week. He was seen 12/2015 for similar and MRCP ---> mild edematous changes around body and tail characteristic of mild pancreattis, no pancreatic ductal or biliar dilatation, no choledocholithiasis, sp cholecystectomy, no free fluid. On admission his lipase was 2308 and has since dropped to 408. He has been tolerating full liquids. He has some nausea still but no vomiting today. He says his pain is unchanged. he does have a hx of heavy drinking but not in the last year except for "3 cups" of joelle on mother's day. (Crystal Srinivasan) PFSH Past Medical History dm hunt parkinson white syndrome Past Surgical History cholecystectomy right finger surgery (Crystal Srinivasan) Coded Allergies: Darvocet-N 100 (Verified Allergy, Severe, STOMACH CRAMPS, 11/17/16) Motrin (Verified Adverse Reaction, Severe, 11/17/16) Ibuprofen (Unverified Adverse Reaction, Mild, 11/17/16) Medications Last Impressions Abdomen/Pelvis CT 11/18/16 0005 Signed Impressions: Service Date/Time: October 00:48 - CONCLUSION: Some indistinctness of the pancreatic head suspicious for pancreatitis. Fatty abdominal wall umbilical hernia. Bridger Wells MD Chest X-Ray 11/17/16 2237 Signed Impressions: Service Date/Time: Thursday, November 17, 2016 22:54 - CONCLUSION: Normal examination. Bridger Wells MD Family History mom htn, dm, heart problems dad dm grandma- heart problems Social History smokes a pack black & milds a day drinking occasionally, last drank mothers day 3 c joelle used to use cocaine, but quit 6-7 months ago (Crystal Srinivasan) Review of Systems Constitutional: DENIES: Fever Ears, nose, mouth, throat: DENIES: Hearing loss Respiratory: DENIES: Cough Gastrointestinal: COMPLAINS OF: Abdominal pain, Constipation, Nausea, DENIES: Black stools, Bloody stools, Vomiting, Hematemesis Genitourinary: DENIES: Hematuria Musculoskeletal: DENIES: Muscle aches Integumentary: DENIES: Abnormal pigmentation Hematologic/lymphatic: DENIES: Bruising Psychiatric: DENIES: Confusion (Crystal Srinivasan) GI Exam Vitals I&O Vital Signs Date Time Temp Pulse Resp B/P Pulse Ox O2 Delivery O2 Flow Rate FiO2 11/19/16 16:00 97.7 93 18 174/100 97 11/19/16 12:00 97.3 83 18 162/90 96 11/19/16 08:00 98.1 73 18 152/91 97 11/19/16 00:00 97.7 75 16 150/83 96 11/18/16 20:00 96.8 71 18 156/83 98 11/18/16 17:53 97.1 74 18 139/91 97 I/O 11/18/16 11/18/16 11/18/16 11/19/16 11/19/16 11/19/16 07:00 15:00 23:00 07:00 15:00 23:00 Intake Total 1748 ml 871 ml 340 ml Output Total 1100 ml 400 ml 200 ml 900 ml Balance -1100 ml 1348 ml 671 ml -560 ml Intake Oral 480 ml 360 ml 340 ml IV Total 1268 ml 511 ml Output Urine Total 1100 ml 400 ml 200 ml 900 ml # Voids 1 # Bowel Movements 0 0 0 Imaging Last Impressions Abdomen/Pelvis CT 11/18/16 0005 Signed Impressions: Service Date/Time: October 00:48 - CONCLUSION: Some indistinctness of the pancreatic head suspicious for pancreatitis. Fatty abdominal wall umbilical hernia. Bridger Wells MD Chest X-Ray 11/17/16 2237 Signed Impressions: Service Date/Time: Thursday, November 17, 2016 22:54 - CONCLUSION: Normal examination. Bridger Wells MD Laboratory Test 11/19/16 04:54 White Blood Count 7.1 TH/MM3 Red Blood Count 4.70 MIL/MM3 Hemoglobin 13.8 GM/DL Hematocrit 40.2 % Mean Corpuscular Volume 85.5 FL Mean Corpuscular Hemoglobin 29.4 PG Mean Corpuscular Hemoglobin 34.4 % Concent Red Cell Distribution Width 13.7 % Platelet Count 243 TH/MM3 Mean Platelet Volume 8.2 FL Neutrophils (%) (Auto) 64.5 % Lymphocytes (%) (Auto) 20.4 % Monocytes (%) (Auto) 13.2 % Eosinophils (%) (Auto) 1.7 % Basophils (%) (Auto) 0.2 % Neutrophils # (Auto) 4.6 TH/MM3 Lymphocytes # (Auto) 1.5 TH/MM3 Monocytes # (Auto) 0.9 TH/MM3 Eosinophils # (Auto) 0.1 TH/MM3 Basophils # (Auto) 0.0 TH/MM3 CBC Comment DIFF FINAL Differential Comment Sodium Level 141 MEQ/L Potassium Level 4.0 MEQ/L Chloride Level 105 MEQ/L Carbon Dioxide Level 29.1 MEQ/L Anion Gap 7 MEQ/L Blood Urea Nitrogen 7 MG/DL Creatinine 0.78 MG/DL Estimat Glomerular Filtration 126 ML/MIN Rate Random Glucose 191 MG/DL Calcium Level 8.0 MG/DL Total Bilirubin 0.4 MG/DL Aspartate Amino Transf 10 U/L (AST/SGOT) Alanine Aminotransferase 18 U/L (ALT/SGPT) Alkaline Phosphatase 82 U/L Total Protein 6.8 GM/DL Albumin 3.1 GM/DL Lipase 408 U/L Physical Examination HEENT: EOMI; normocephalic; atraumatic; no jaundice. CHEST: CTA CARDIAC: RRR ABDOMEN: Soft, obese, TTP epigastrum, LUQ; no hepatosplenomegaly; bowel sounds are present in all four quadrants. EXTREMITIES: No clubbing, cyanosis, or edema. SKIN: Normal; no rash; no jaundice. LAWN TECHNICIAN: No focal deficits; alert and oriented times three. (Crystal Srinivasan) Assessment and Plan Plan ASSESSMENT - pancreatitis - lipase on admission 2308 down to 408. suspect ETOH induced. CT 11-18-16---> some indistinctness of pancreatic head suspicious for pancreatitis. Was treated for pancreatitis last December. Hx heavy drinking. n/v somewhat improved but pain persists. Does not appear to be obstructive pattern. PLAN - MRCP - IGG4 - continue full liquids - supportive care - ETOH cessation - rck lipase in am This pt seen by myself and Dr Mary and this note is written on his behalf. (Crystal Srinivasan) Physician Comments Patient seen and examined Agree with above Continue with current supportive care Monitor labs MRCP negative (Pascual Garner MD) Crystal Srinivasan [employer] EXAMINER November 19, 2016 16:43 Pascual Garner MD November 19, 2016 20:41
[2016-11-19] MEDS ORDERED: GADODIAMIDE PF 287 MG/ML 20 ML VIAL (for RAD MRI) IV ONE (19:23)
--- NOTE | 2016-11-19 19:51 | RADRPT ---
EXAM DATE/TIME: 11/19/2016 18:57 [facility] COMPARISON: CT ABDOMEN & PELVIS W CONTRAST, November 18, 2016, 0:48. INDICATIONS : Pancreatitis. CONTRAST: 20 cc Omniscan (gadodiamide) IV MEDICAL HISTORY : None. SURGICAL HISTORY : Cholecystectomy. ENCOUNTER: Subsequent ACUITY: 3 day PAIN SCORE: 5/10 LOCATION: abdomen TECHNIQUE: Multiplanar, multisequence magnetic resonance imaging of the abdomen was performed. High-resolution 3D dataset was utilized to reconstruct maximum-intensity projection (MIP) images. FINDINGS: INTRAHEPATIC BILE DUCTS: Within normal limits. No significant anatomical variant is present. EXTRAHEPATIC BILE DUCTS: The common bile duct measures 2 mm No stone or filling defect is identified. No distal obstructing ma ss is visualized. GALLBLADDER: Surgically absent. LIVER: Normal size and signal intensity. No liver lesion is identified. Portal vein is within normal limits . PANCREAS: The main pancreatic duct is normal in size. There is no significant anatomical variant. High T2 sign al is seen involving the pancreatic head. No mass is visualized. OTHER: The remaining visualized structures demonstrate no acute abnormality. CONCLUSION: 1. Acute pancreatitis at the pancreatic head level. No pseudocyst. No ductal dilatation or stone. The gallbladder is surgically absent. Elio Lowery Jr., MD on November 19, 2016 at 19:43 Board Certified Radiologist. This report was verified electronically.
[2016-11-19 20:00] VITALS: BP 159/78; PULSE 80; RESP 20; TEMP 97.4; O2SAT 98
--- NOTE | 2016-11-19 23:48 | HHI.PR ---
Subjective Remarks Patient seen the morning of 11/19. Patient reports abdominal pain continues without improvement. Denies any chest pain. He is concerned that this is a repeat episode of pancreatitis, with like GI evaluation. Objective Vital Signs Date Time Temp Pulse Resp B/P Pulse Ox O2 Delivery O2 Flow Rate FiO2 11/19/16 20:00 97.4 80 20 159/78 98 11/19/16 16:00 97.7 93 18 174/100 97 11/19/16 12:00 97.3 83 18 162/90 96 11/19/16 08:00 98.1 73 18 152/91 97 11/19/16 00:00 97.7 75 16 150/83 96 I/O 11/18/16 11/18/16 11/18/16 11/19/16 11/19/16 11/19/16 07:00 15:00 23:00 07:00 15:00 23:00 Intake Total 1748 ml 871 ml 340 ml 480 ml Output Total 1100 ml 400 ml 200 ml 900 ml 600 ml Balance -1100 ml 1348 ml 671 ml -560 ml -120 ml Intake Oral 480 ml 360 ml 340 ml 480 ml IV Total 1268 ml 511 ml Output Urine Total 1100 ml 400 ml 200 ml 900 ml 600 ml # Voids 1 # Bowel Movements 0 0 0 Result Diagram: 11/19/16 0454 11/19/16 0454 Objective Remarks GENERAL: sitting up in bed.appears uncomfortable. Alert and oriented 3. SKIN: Warm and dry. HEAD: Normocephalic. EYES: No scleral icterus. No injection or drainage. NECK: Supple, trachea midline. No JVD. CARDIOVASCULAR: Regular rate and rhythm without murmurs, gallops, or rubs. RESPIRATORY: Breath sounds equal bilaterally. No accessory muscle use. GASTROINTESTINAL: Abdomen soft, epigastric tenderness to moderate palpation.. MUSCULOSKELETAL: No cyanosis, or edema. BACK: Nontender without obvious deformity. No CVA tenderness. A/P Assessment and Plan 11/19/16==== Patient reports continued pain. Consult gastroenterology. Hyperglycemia. Adjust insulin. Chronic left lower extremity pain. Patient requesting muscle relaxants. Ordered. 51-year-old male with a past medical history of diabetes and pancreatitis who presented with abdominal pain //Acute pancreatitis: After having 3 alcoholic beverages on Mother's Day, otherwise no alcohol use. Reviewed: Lipase 2300. Abdominal CT with some indistinctness of the pancreatic head and suspicious for pancreatitis. -IVF -PPI -Pain control with Percocet and IV morphine -Clear liquids for now pending clinical improvement -Follow up labs in the a.m. -Gastroenterology following. Appreciate assistance. //Diabetes mellitus: Not well controlled as patient is refusing short acting insulin. Decrease home Levemir dose in half for now until diet is advanced. Monitor Accu-Cheks. Sliding scale coverage if needed. Continue Lyrica for neuropathy. //Constipation: Likely secondary to narcotic pain medication. Melodie-Colace. Milk of magnesia as needed. DVT prophylaxis: Jacky Banks MD November 19, 2016 23:48
[2016-11-20] VITALS: BP 133/80; PULSE 81; RESP 20; TEMP 97.5; O2SAT 97
[2016-11-20] MEDS: oxyCODONE/ACETAMINOPHEN 5 MG/325 MG TAB PO PRN ×3 (05:08→18:22)
[2016-11-20] MEDS: PREGABALIN 100 MG CAP PO SCH ×3 (05:08→21:37)
[2016-11-20 05:24] LABS: AUTOMATED NEUTROPHIL # 4.7 TH/MM3 (1.8-7.7); BASOPHIL % 0.3 % (0.0-2.0); EOSINOPHIL # 0.2 TH/MM3 (0-0.4); EOSINOPHIL % 2.2 % (0.0-4.0); HEMATOCRIT 39.9 % (39.0-51.0); HEMO FLAGS DIFF FINAL; LYMPH % 22.4 % (9.0-44.0); LYMPHOCYTE # 1.7 TH/MM3 (1.0-4.8); MEAN CELL VOLUME 85.7 FL (80.0-100.0); MEAN CORPUSCULAR HEMOGLOBIN 29.3 PG (27.0-34.0); MEAN CORPUSCULAR HGB CONC 34.1 % (32.0-36.0); MONO % 12.1 % (0.0-8.0); PLATELET COUNT 245 TH/MM3 (150-450); RED BLOOD COUNT 4.66 MIL/MM3 (4.50-5.90); RED CELL DISTRIBUTION WIDTH 13.7 % (11.6-17.2); WHITE BLOOD COUNT 7.5 TH/MM3 (4.0-11.0)
[2016-11-20 05:40] LABS: BICARBONATE 27.2 MEQ/L (21.0-32.0); MAGNESIUM 2.1 MG/DL (1.5-2.5); POTASSIUM 3.8 MEQ/L (3.5-5.1)
[2016-11-20] MEDS: INSULIN ASPART SUPPLEMENTAL SCALE SQ SCH ×4 (06:05→22:44)
[2016-11-20] MEDS: MORPHINE SULFATE 4 MG/ML INJ IV PUSH PRN ×4 (06:27→21:38)
[2016-11-20 08:00] VITALS: BP 123/70; PULSE 84; RESP 17; TEMP 98.3; O2SAT 96
[2016-11-20] MEDS: ENOXAPARIN SODIUM 40 MG/0.4 ML SYRINGE SQ SCH (08:30)
[2016-11-20] MEDS: METHOCARBAMOL 500 MG TAB PO PRN (08:30)
[2016-11-20] MEDS: PANTOPRAZOLE SOD 40 MG DELAYED RELEASE TAB PO SCH (08:30)
[2016-11-20] MEDS: DOCUSATE SODIUM 50 MG/SENNA 8.6 MG TAB PO SCH ×2 (08:30→21:37)
[2016-11-20] MEDS: SODIUM CHLORIDE 0.9% FLUSH 10 ML FLUSH IV FLUSH SCH ×2 (08:31→21:37)
[2016-11-20] MEDS: INSULIN DETEMIR 100 UNITS/ML VIAL SQ SCH ×2 (08:35→22:42)
[2016-11-20] MEDS: SODIUM CHLOR 0.9% 1000 ML INJ 1,000 ML IV SCH ×2 (11:35→23:30)
[2016-11-20 12:00] VITALS: BP 151/92; PULSE 77; RESP 19; TEMP 97.9; O2SAT 98
[2016-11-20] MEDS: SODIUM CHLORIDE 0.9% FLUSH 10 ML FLUSH IV FLUSH PRN ×2 (12:26→17:15)
--- NOTE | 2016-11-20 12:42 | HHI.GIFU ---
Subjective Remarks Pt reports that his abdominal pain is improving. He feels bloated today Pt had 3 BMs last night, +Flatus today Complains of muscle spasms in his back which is a long standing issue. (Adore Ambriz) Objective Vitals I&O Vital Signs Date Time Temp Pulse Resp B/P Pulse Ox O2 Delivery O2 Flow Rate FiO2 11/20/16 12:00 97.9 77 19 151/92 98 11/20/16 08:00 98.3 84 17 123/70 96 11/20/16 00:00 97.5 81 20 133/80 97 11/19/16 20:00 97.4 80 20 159/78 98 11/19/16 16:00 97.7 93 18 174/100 97 I/O 11/19/16 11/19/16 11/19/16 11/20/16 11/20/16 11/20/16 07:00 15:00 23:00 07:00 15:00 23:00 Intake Total 871 ml 340 ml 480 ml 960 ml Output Total 200 ml 900 ml 600 ml Balance 671 ml -560 ml -120 ml 960 ml Intake Oral 360 ml 340 ml 480 ml 960 ml IV Total 511 ml 0 ml Output Urine Total 200 ml 900 ml 600 ml # Voids 3 # Bowel Movements 0 0 Laboratory Laboratory Tests Test 11/20/16 11/20/16 02:15 04:08 Creatinine 0.67 0.69 Estimat Glomerular Filtration 150 145 Rate Lipase 210 White Blood Count 7.5 Red Blood Count 4.66 Hemoglobin 13.6 Hematocrit 39.9 Mean Corpuscular Volume 85.7 Mean Corpuscular Hemoglobin 29.3 Mean Corpuscular Hemoglobin 34.1 Concent Red Cell Distribution Width 13.7 Platelet Count 245 Mean Platelet Volume 8.2 Neutrophils (%) (Auto) 63.0 Lymphocytes (%) (Auto) 22.4 Monocytes (%) (Auto) 12.1 Eosinophils (%) (Auto) 2.2 Basophils (%) (Auto) 0.3 Neutrophils # (Auto) 4.7 Lymphocytes # (Auto) 1.7 Monocytes # (Auto) 0.9 Eosinophils # (Auto) 0.2 Basophils # (Auto) 0.0 CBC Comment DIFF FINAL Differential Comment Sodium Level 142 Potassium Level 3.8 Chloride Level 107 Carbon Dioxide Level 27.2 Anion Gap 8 Blood Urea Nitrogen 5 Random Glucose 128 Calcium Level 8.4 Phosphorus Level 3.9 Magnesium Level 2.1 Albumin 3.2 Imaging Last Impressions Cholangiopancreatography MRI 11/19/16 0000 Signed Impressions: Service Date/Time: Saturday, November 19, 2016 18:57 - CONCLUSION: 1. Acute pancreatitis at the pancreatic head level. No pseudocyst. No ductal dilatation or stone. The gallbladder is surgically absent. Elio Lowery Jr., MD Abdomen/Pelvis CT 11/18/16 0005 Signed Impressions: Service Date/Time: October 00:48 - CONCLUSION: Some indistinctness of the pancreatic head suspicious for pancreatitis. Fatty abdominal wall umbilical hernia. Bridger Wells MD Chest X-Ray 11/17/16 2237 Signed Impressions: Service Date/Time: Thursday, November 17, 2016 22:54 - CONCLUSION: Normal examination. Bridger Wells MD Physical Exam GENERAL: NAD, AAOx3 CHEST: CTA CARDIAC: Regular ABDOMEN: +BS, soft, nondistended, nontender EXT: No edema. (Adore Ambriz) Assessment and Plan Plan ASSESSMENT - Acute pancreatitis. Lipase at admission was 2308. Suspect ETOH induced. CT Abd /pelvis (11-18) ---> some indistinctness of pancreatic head suspicious for pancreatitis. MRCP (11/19) --> Acute pancreatitis at the pancreatic head level. No pseudocyst. No ductal dilatation or stone. The gallbladder is surgically absent. Pt is improving symptomatically. Tolerating full liquids. Lipase has improved to 210 today. PLAN - Advance to diabetic diet. - IgG 4 is pending. - Alcohol cessation. - If pt tolerated diet without any increased pain, N/V, we will sign off. - Pt will need outpt followup with GI in 2 week - The pt was seen and examined by myself and Dr Yeung and this note is written on his behalf. (Adore Ambriz) Physician Comments Seen and examined, plan as above. Will sign off for now, please notify us if needed. (Ravi Yeung MD) Adore Ambriz November 20, 2016 12:42 Ravi Yeung MD November 21, 2016 04:44
[2016-11-20 16:00] VITALS: BP 160/95; PULSE 83; RESP 19; TEMP 97.7; O2SAT 98
[2016-11-20] MEDS: CYCLOBENZAPRINE HCL 10 MG TAB PO PRN (18:28)
[2016-11-20 20:00] VITALS: BP 172/94; PULSE 84; RESP 20; TEMP 99.4; O2SAT 99
--- NOTE | 2016-11-20 23:57 | HHI.PR ---
Subjective Remarks Patient seen this morning. Reports abdominal pain much improved. Tolerating food. He reports continued left lower extremity pain which has been going on for months since an accident. He does not want to go home until this is controlled. He requests refills on all of his home medications. Requests start a better muscle relaxant. Objective Vital Signs Date Time Temp Pulse Resp B/P Pulse Ox O2 Delivery O2 Flow Rate FiO2 11/20/16 20:00 99.4 84 20 172/94 99 11/20/16 17:20 16 11/20/16 16:00 97.7 83 19 160/95 98 11/20/16 12:31 16 11/20/16 12:00 97.9 77 19 151/92 98 11/20/16 08:00 98.3 84 17 123/70 96 11/20/16 00:00 97.5 81 20 133/80 97 I/O 11/19/16 11/19/16 11/19/16 11/20/16 11/20/16 11/20/16 07:00 15:00 23:00 07:00 15:00 23:00 Intake Total 871 ml 340 ml 480 ml 960 ml 480 ml 240 ml Output Total 200 ml 900 ml 600 ml 1200 ml Balance 671 ml -560 ml -120 ml 960 ml 480 ml -960 ml Intake Oral 360 ml 340 ml 480 ml 960 ml 480 ml 240 ml IV Total 511 ml 0 ml Output Urine Total 200 ml 900 ml 600 ml 1200 ml # Voids 3 5 # Bowel Movements 0 0 0 Result Diagram: 11/20/16 0408 11/20/16 0408 Objective Remarks GENERAL: sitting up in bed.appears uncomfortable. Alert and oriented 3. SKIN: Warm and dry. HEAD: Normocephalic. EYES: No scleral icterus. No injection or drainage. NECK: Supple, trachea midline. No JVD. CARDIOVASCULAR: Regular rate and rhythm without murmurs, gallops, or rubs. RESPIRATORY: Breath sounds equal bilaterally. No accessory muscle use. GASTROINTESTINAL: Abdomen soft, epigastric tenderness resolved today. MUSCULOSKELETAL: No cyanosis, or edema. BACK: Nontender without obvious deformity. No CVA tenderness. A/P Assessment and Plan 11/20/16==== Abdominal pain improving. Appreciate gastroenterology assistance. Hyperglycemia improved. Adjust diet. Chronic left lower extremity pain. Add cyclobenzaprine, which patient says he is on home. 51-year-old male with a past medical history of diabetes and pancreatitis who presented with abdominal pain //Acute pancreatitis: After having 3 alcoholic beverages on Mother's Day, otherwise no alcohol use. Reviewed: Lipase 2300. Abdominal CT with some indistinctness of the pancreatic head and suspicious for pancreatitis. -IVF -PPI -Pain control with Percocet and IV morphine -Clear liquids for now pending clinical improvement -Follow up labs in the a.m. -abdominal pain improved. Lipase improved.Gastroenterology following. Appreciate assistance. //Diabetes mellitus: Not well controlled as patient is refusing short acting insulin. Decrease home Levemir dose in half for now until diet is advanced. Monitor Accu-Cheks. Sliding scale coverage if needed. Continue Lyrica for neuropathy. //Constipation: Likely secondary to narcotic pain medication. Melodie-Colace. Milk of magnesia as needed. DVT prophylaxis: Jacky Banks MD November 20, 2016 23:57
[2016-11-21] VITALS: BP 134/86; PULSE 88; RESP 20; TEMP 97.5; O2SAT 97
[2016-11-21] MEDS: MORPHINE SULFATE 4 MG/ML INJ IV PUSH PRN ×3 (00:24→11:51)
[2016-11-21] MEDS: oxyCODONE/ACETAMINOPHEN 5 MG/325 MG TAB PO PRN ×3 (02:29→15:01)
[2016-11-21] MEDS: CYCLOBENZAPRINE HCL 10 MG TAB PO PRN ×2 (02:30→11:55)
[2016-11-21] MEDS: PREGABALIN 100 MG CAP PO SCH ×2 (05:48→15:00)
[2016-11-21] MEDS: INSULIN ASPART SUPPLEMENTAL SCALE SQ SCH ×2 (05:58→11:00)
[2016-11-21 08:00] VITALS: BP 136/74; PULSE 85; RESP 18; TEMP 97.9; O2SAT 97
[2016-11-21] MEDS: DOCUSATE SODIUM 50 MG/SENNA 8.6 MG TAB PO SCH (08:40)
[2016-11-21] MEDS: PANTOPRAZOLE SOD 40 MG DELAYED RELEASE TAB PO SCH (08:40)
[2016-11-21] MEDS: ENOXAPARIN SODIUM 40 MG/0.4 ML SYRINGE SQ SCH (08:44)
[2016-11-21] MEDS: SODIUM CHLOR 0.9% 1000 ML INJ 1,000 ML IV SCH (08:46)
[2016-11-21] MEDS: SODIUM CHLORIDE 0.9% FLUSH 10 ML FLUSH IV FLUSH SCH (09:00)
[2016-11-21] MEDS ORDERED: INSULIN DETEMIR 100 UNITS/ML VIAL SQ SCH (09:00)
[2016-11-21] MEDS ORDERED: NOVOLOGSS SQ (11:55)
[2016-11-21] MEDS ORDERED: LEVEMIR SQ (11:55)
[2016-11-21] MEDS ORDERED: CYCL1TAB29 PO (11:55)
[2016-11-21 12:00] VITALS: BP 138/72; PULSE 88; RESP 18; TEMP 97.5; O2SAT 98
[2016-11-21] MEDS ORDERED: WALKER WHEELS/F1 MIS (12:41)
[2016-11-21] MEDS ORDERED: BLOOD GLUCOSE T1 TES (12:45)
[2016-11-21] MEDS ORDERED: OXYC1TAB63 PO (12:45)
[2016-11-21] MEDS ORDERED: ALCO1PAD (12:45)
[2016-11-21] MEDS ORDERED: LANCETS1 MI1 (12:45)
[2016-11-21] MEDS ORDERED: INSU1MIS (12:45)
[2016-11-21] MEDS ORDERED: BLOOD GLUCOSE M1 KIT (12:45)
[2016-11-21] MEDS ORDERED: LYRI100C PO (12:45)
--- NOTE | 2016-11-21 12:47 | HHI.FF ---
Face to Face Verification Diagnosis: (1) Sciatica (2) Chronic low back pain with sciatica (3) Diabetic neuropathy (4) Diabetes mellitus (5) Pancreatitis Physical Therapy Order: Evaluate and Treat I have seen patient Constantino Jacob on 11/21/16. My clinical findings support the need for the requested home health care services because: Deconditioned w/ increased weakness I certify that my clinical findings support that this patient is homebound because: Unsafe to leave home unassisted Jacky Diaz MD November 21, 2016 12:47
[2016-11-21 16:00] VITALS: BP 138/80; PULSE 82; RESP 19; TEMP 98.5; O2SAT 95
[2016-11-24 23:52] LABS: IGG SUBCLASSES 4 126.3 mg/dL (4-86)
--- NOTE | 2016-11-25 07:49 | HHI.DS ---
Discharge Summary Admission Date November 18, 2016 at 01:19 Discharge Date: November 21, 2016 Admitting Diagnosis Acute pancreatitis (1) DM (diabetes mellitus) ICD Code: E11.9 (2) Pancreatitis ICD Code: K85.9 (3) Sciatica ICD Code: M54.30 Procedures no invasive procedures performed. Brief History - From Admission History from patient, ER physician communication, and review of medical records. Patient reported that he came to the hospital because he was having abdominal pain for the past 5 days. He pointed to the left upper quadrant and midepigastrium. He reports that the pain was initially going away and then Mother's Day, he had 3 drinks for celebration and the pain returned back. He reports he also had some hot sauce with chicken wings which made the pain worse. He denies any alcoholism at present. He stated he quit drinking heavily a few years ago. Denies fever. denies diarrhea. In fact he stated he was constipated for past few days. When he finally made his bowel movements, he denies blood in his stool or urine denies urinary burning or pain on urination Imaging Last Impressions Cholangiopancreatography MRI 11/19/16 0000 Signed Impressions: Service Date/Time: Saturday, November 19, 2016 18:57 - CONCLUSION: 1. Acute pancreatitis at the pancreatic head level. No pseudocyst. No ductal dilatation or stone. The gallbladder is surgically absent. Elio Lowery Jr., MD Abdomen/Pelvis CT 11/18/16 0005 Signed Impressions: Service Date/Time: October 00:48 - CONCLUSION: Some indistinctness of the pancreatic head suspicious for pancreatitis. Fatty abdominal wall umbilical hernia. Bridger Wells MD Chest X-Ray 11/17/16 2237 Signed Impressions: Service Date/Time: Thursday, November 17, 2016 22:54 - CONCLUSION: Normal examination. Bridger Wells MD PE at Discharge GENERAL: Well-developed well-nourished. In no acute distress. SKIN: Warm and dry. No lesions noted. HEENT: Normocephalic. Pupils equal and round. Mucous membranes pink and moist. CARDIOVASCULAR: Regular rate and rhythm. No murmur appreciated. RESPIRATORY: No accessory muscle use. Clear to auscultation. Breath sounds equal bilaterally. GASTROINTESTINAL: Abdomen soft, LUQ AND PERIUMBILICAL TTP, nondistended. Decreased bowel sounds. MUSCULOSKELETAL: No obvious deformities. No clubbing or cyanosis. No edema. NEUROLOGICAL: Awake and alert. No focal neurological deficits. Moves upper and lower extremities spontaneously. Normal speech. PSYCHIATRIC: Appropriate mood and affect; insight and judgment normal. Pt update on day of discharge patient says abdominal pain resolved. He reports very severe chronic left lower extremity pain from chronic injury, requests refills.he does say that muscle relaxant is working. Hospital Course Lipase [address] showed pancreatitis as above. Patient was treated with IV fluids, with improvement.. He will follow-up with gastroenterology as outpatient. For problem-based summary from most recent progress note, please see below. 11/20/16==== Abdominal pain improving. Appreciate gastroenterology assistance. Hyperglycemia improved. Adjust diet. Chronic left lower extremity pain. Add cyclobenzaprine, which patient says he is on home. 51-year-old male with a past medical history of diabetes and pancreatitis who presented with abdominal pain //Acute pancreatitis: After having 3 alcoholic beverages on Mother's Day, otherwise no alcohol use. Reviewed: Lipase 2300. Abdominal CT with some indistinctness of the pancreatic head and suspicious for pancreatitis. -IVF -PPI -Pain control with Percocet and IV morphine -Clear liquids for now pending clinical improvement -Follow up labs in the a.m. -abdominal pain improved. Lipase improved.Gastroenterology following. Appreciate assistance. //Diabetes mellitus: Not well controlled as patient is refusing short acting insulin. Decrease home Levemir dose in half for now until diet is advanced. Monitor Accu-Cheks. Sliding scale coverage if needed. Continue Lyrica for neuropathy. //Constipation: Likely secondary to narcotic pain medication. Melodie-Colace. Milk of magnesia as needed. DVT prophylaxis: Lovenox Pt Condition on Discharge: Good Discharge Disposition: Disch w/ Home Health Serv Discharge Time: <= 30 minutes Discharge Instructions DIET: Follow Instructions for: Diabetic Diet, Low Fat Diet Activities you can perform: Regular-No Restrictions Follow up Referrals: Gastroenterology - 2 Weeks with Pascual Garner MD PCP Follow-up - 2 Weeks with Alek Motta New Medications: Alcohol Swabs (Alcohol Prep Pads) 70 % Pad 1 PAD .ROUTE DIRECTED Aseptic process #1 Ref 0 BOX Blood Glucose Monitoring W/Device (Blood Glucose Monitoring W/Device) 1 Kit Kit 1 KIT .ROUTE DIRECTED Blood Sugar Management #1 Ref 0 KIT Blood Glucose Test Strips (Blood Glucose Test Strips) Strips Strip 1 EA .ROUTE DIRECTED Blood Sugar Management #1 Ref 0 BOX Insulin Syringe/Needle U-100 (Insulin Syringe/U-100/1Ml 28G X 1/2" 1 ml) 1 Mis Mis 1 EA .ROUTE DIRECTED Blood Sugar Management #150 BOX Lancets (Lancets) 1 Mis Mis 1 EA .ROUTE DIRECTED Blood Sugar Management #1 Ref 0 BOX Pregabalin (Lyrica) 100 Mg Cap 100 MG PO BID Pain Management #60 Ref 0 CAP Walker with Front Wheels (Walker with Front Wheels) 1 Mis Mis 1 EA .ROUTE DIRECTED #1 Ref 0 EA Cyclobenzaprine (Flexeril) 10 Mg Tab 5 MG PO Q8H PRN SPASM Days 14 TAB Insulin Aspart Inj (Novolog Inj) 100 Unit/Ml Inj 1 INJECTION SQ ACHS SLIDING SCALE Blood Sugar Management Days 30 INJECTION Oxycodone-Acetaminophen (Oxycodone-Acetaminophen) 5-325 mg Tab 1 TAB PO Q6H PRN PAIN SCALE 1 TO 10 #20 TAB Continued Medications: Insulin Detemir Inj (Levemir Inj) 1,000 unit/ 10 ML Vial 25 UNITS SQ BID Do not mix with any other Insulin. Blood Sugar Management Days 30 Ref 0 VIAL (This prescription has been renewed) Discontinued Medications: Methocarbamol (Robaxin) 500 Mg Tab 500 MG PO QID PRN MUSCLE SPASM #30 Ref 0 TAB Jacky Diaz MD Nov 25, 2016 07:49
== END 2016-11-21 17:13 | disposition home or self-care (01) | DRG 440 ==
LOC: NEPC 22:08 → OBSVTOIN 11-18 01:19 → NEDA 11-18 01:19 → NEPGCP 11-18 02:45 → N07B 11-18 16:09
PROVIDERS: ADMIT Internal Medicine; ATTEND Internal Medicine
DX: K85.90 Acute pancreatitis without necrosis or infection, unspecified (principal); E11.65 Type 2 diabetes mellitus with hyperglycemia; G20 Parkinson's disease; I10 Essential (primary) hypertension; K59.00 Constipation, unspecified; G62.9 Polyneuropathy, unspecified; K21.9 Gastro-esophageal reflux disease without esophagitis; K42.9 Umbilical hernia without obstruction or gangrene; M54.30 Sciatica, unspecified side; F20.9 Schizophrenia, unspecified; F17.210 Nicotine dependence, cigarettes, uncomplicated
CPT/HCPCS: 71010; 74177; 74183; 76377; 80053; 80061; 80069; 81001; 82565; 82784; 82787; 82948; 83036; 83690; 83735; 85025; 85610; 85730; 93005; 96361; 96374; 96375; A9579; J1170; J1650; J1815; J2270; J2405; J7030; Q9967

== ENCOUNTER 2016-11-26 23:07 | Inpatient (IN) | payer OTHER ==
[~2016-11-26] VITALS: Ht 172.7 cm; Wt 103.0 kg
[~2016-11-26 23:07] MED LIST changes: +ALCO1PAD; +BLOOD GLUCOSE M1 KIT; +BLOOD GLUCOSE T1 TES; +CYCL1TAB29 PO; -DIAZ5 PO; -GABA300C5 PO; -INSU-277; +INSU1MIS; +LANCETS1 MI1; +LYRI100C PO; -MISC-274; -NORC5TAB PO; +NOVOLOGSS SQ; +OXYC1TAB63 PO; -ROBA500T PO; +WALKER WHEELS/F1 MIS
[2016-11-26 23:21] VITALS: BP 146/77; PULSE 100; RESP 18; TEMP 98.1; O2SAT 97
[2016-11-26] MEDS ORDERED: SODIUM CHLOR 0.9% 1000 ML INJ 1,000 ML IV SCH (23:21)
[2016-11-26 23:24] VITALS: O2SAT 97
[2016-11-26] MEDS ORDERED: MORPHINE SULFATE 4 MG/ML INJ IV PUSH ONE (23:30)
[2016-11-26] MEDS ORDERED: ONDANSETRON HCL 4 MG/2 ML VIAL IVP ONE (23:30)
[2016-11-26] MEDS ORDERED: PANTOPRAZOLE SODIUM 40 MG VIAL IVP ONE (23:30)
--- NOTE | 2016-11-26 23:30 | PD ---
HPI Chief Complaint: Abdominal Pain Time Seen by Provider: 23:21 Travel History International Travel<30 days: No Contact w/Intl Traveler<30days: No Traveled to known affect area: No History of Present Illness HPI 51-year-old male complains of abdominal pain with nausea vomiting. Patient was admitted to [facility] November 18 and discharged November 21 with diagnosis of acute pancreatitis. Patient states that the pain got worse after discharge. Patient started having nausea vomiting today. Patient states the pain in cramping pain and sharp pain localized throughout epigastric area of her abdomen area. Patient denies any pain radiation. Patient denies any headache. Patient denies chest pain or shortness of breath. Patient denies any dysuria or frequency. Patient denies any fever chills. On a scale from 1-10 the pain is a 10. Patient denies any recent alcohol consumption. PFSH Past Medical History Anemia: Yes Arthritis: No Asthma: No Autoimmune Disease: No Blood Disorders: No Anxiety: No Depression: Yes Heart Rhythm Problems: No Cancer: No Cardiovascular Problems: Yes (HTN) High Cholesterol: No Chemotherapy: No Chest Pain: No Congestive Heart Failure: No COPD: No Cerebrovascular Accident: No Diabetes: Yes (METFORMIN) Diminished Hearing: No Endocrine: Yes GERD: Yes Glaucoma: No Genitourinary: No Headaches: No Hepatitis: No Hiatal Hernia: No ( ) Hypertension: Yes Immune Disorder: No Kidney Stones: No Musculoskeletal: Yes (STATES 4 BROKEN BONES IN LEFT KNEE) Neurologic: Yes (NEUROPATHY) Psychiatric: Yes Reproductive: No Respiratory: No Immunizations Current: Yes Migraines: No Myocardial Infarction: No Radiation Therapy: No Renal Failure: No Schizophrenia: Yes Seizures: No Sickle Cell Disease: No Sleep Apnea: No Thyroid Disease: No Ulcer: No Past Surgical History Abdominal Surgery: No AICD: No Appendectomy: No Arteriovenous Shunt: No Cardiac Surgery: No Cholecystectomy: Yes Ear Surgery: No Endocrine Surgery: No Eye Surgery: No Genitourinary Surgery: No Gynecologic Surgery: No Insulin Pump: No Joint Replacement: No Neurologic Surgery: No Oral Surgery: No Pacemaker: No Thoracic Surgery: No Social History Alcohol Use: No Tobacco Use: Yes (cigars) Substance Use: No Allergies-Medications (Allergen,Severity, Reaction): Coded Allergies: Darvocet-N 100 (Verified Allergy, Severe, STOMACH CRAMPS, 11/17/16) Motrin (Verified Adverse Reaction, Severe, 11/17/16) Ibuprofen (Unverified Adverse Reaction, Mild, 11/17/16) Reported Meds & Prescriptions Reported Meds & Active Scripts Active Alcohol Prep Pads (Alcohol Swabs) 70 % Pad 1 Pad .ROUTE DIRECTED Insulin Syringe/U-100/1Ml 28G X 1/2" 1 ml (Insulin Syringe/Needle U-100) 1 Mis Mis 1 Ea .ROUTE DIRECTED Lancets 1 Mis Mis 1 Ea .ROUTE DIRECTED Blood Glucose Test Strips Strips Strip 1 Ea .ROUTE DIRECTED Blood Glucose Monitoring W/Device (Device) 1 Kit Kit 1 Kit .ROUTE DIRECTED Lyrica (Pregabalin) 100 Mg Cap 100 Mg PO BID Oxycodone-Acetaminophen 5-325 mg Tab 1 Tab PO Q6H PRN Walker with Front Wheels (Device) 1 Mis Mis 1 Ea .ROUTE DIRECTED Novolog Inj (Insulin Aspart) 100 Unit/Ml Inj 1 Injection SQ ACHS SLIDING SCALE 30 Days Flexeril (Cyclobenzaprine HCl) 10 Mg Tab 5 Mg PO Q8H PRN 14 Days Levemir Inj (Insulin Detemir) 1,000 unit/ 10 ML Vial 25 Units SQ BID 30 Days Do not mix with any other Insulin. Review of Systems General / Constitutional: No: Fever Eyes: No: Visual changes HENT: No: Headaches Cardiovascular: No: Chest Pain or Discomfort Respiratory: No: Shortness of Breath Gastrointestinal: Positive: Nausea, Vomiting, Abdominal Pain Genitourinary: No: Dysuria Musculoskeletal: No: Pain Skin: No Rash Neurologic: No: Weakness Psychiatric: No: Depression Endocrine: No: Polydipsia Hematologic/Lymphatic: No: Easy Bruising Physical Exam Narrative GENERAL: Well-nourished, well-developed patient. SKIN: Focused skin assessment warm/dry. HEAD: Normocephalic. EYES: No scleral icterus. No injection or drainage. NECK: Supple, trachea midline. No JVD or lymphadenopathy. CARDIOVASCULAR: Regular rate and rhythm without murmurs, gallops, or rubs. RESPIRATORY: Breath sounds equal bilaterally. No accessory muscle use. GASTROINTESTINAL: Abdomen soft, nondistended. Patient has moderate tenderness on palpation epigastric area. No rebound tenderness. No mass. MUSCULOSKELETAL: No cyanosis, or edema. BACK: Nontender without obvious deformity. No CVA tenderness. Neurologic exam normal. Data Data Last Documented VS Vital Signs Date Time Temp Pulse Resp B/P Pulse Ox O2 Delivery O2 Flow Rate FiO2 11/27/16 01:02 18 11/26/16 23:24 97 Room Air 11/26/16 23:21 98.1 100 146/77 Orders Complete Blood Count With Diff (11/26/16 23:21) Comprehensive Metabolic Panel (11/26/16 23:21) Lipase (11/26/16 23:21) Prothrombin Time / Inr (Pt) (11/26/16 23:21) Act Partial Throm Time (Ptt) (11/26/16 23:21) Urinalysis - C+S If Indicated (11/26/16 23:21) Iv Access Insert/Monitor (11/26/16 23:21) Ecg Monitoring (11/26/16 23:21) Oximetry (11/26/16 23:21) Morphine Inj (Morphine Inj) (11/26/16 23:30) Ondansetron Inj (Zofran Inj) (11/26/16 23:30) Pantoprazole Inj (Protonix Inj) (11/26/16 23:30) Sodium Chlor 0.9% 1000 Ml Inj (Ns 1000 M (11/26/16 23:21) Labs Laboratory Tests Test 11/26/16 11/26/16 00:37 23:42 Urine Color YELLOW Urine Turbidity CLEAR Urine pH 5.5 Urine Specific Marshall 1.014 Urine Protein TRACE mg/dL Urine Glucose (UA) 1000 mg/dL Urine Ketones NEG mg/dL Urine Occult Blood NEG Urine Nitrite NEG Urine Bilirubin NEG Urine Urobilinogen LESS THAN 2.0 MG/DL Urine Leukocyte Esterase NEG Urine RBC 1 /hpf Urine WBC 1 /hpf Microscopic Urinalysis Comment CULT NOT INDICATED White Blood Count 6.9 TH/MM3 Red Blood Count 5.00 MIL/MM3 Hemoglobin 14.5 GM/DL Hematocrit 43.1 % Mean Corpuscular Volume 86.2 FL Mean Corpuscular Hemoglobin 29.0 PG Mean Corpuscular Hemoglobin 33.6 % Concent Red Cell Distribution Width 13.5 % Platelet Count 243 TH/MM3 Mean Platelet Volume 8.3 FL Neutrophils (%) (Auto) 67.4 % Lymphocytes (%) (Auto) 22.3 % Monocytes (%) (Auto) 7.9 % Eosinophils (%) (Auto) 2.1 % Basophils (%) (Auto) 0.3 % Neutrophils # (Auto) 4.6 TH/MM3 Lymphocytes # (Auto) 1.5 TH/MM3 Monocytes # (Auto) 0.5 TH/MM3 Eosinophils # (Auto) 0.1 TH/MM3 Basophils # (Auto) 0.0 TH/MM3 CBC Comment DIFF FINAL Differential Comment Prothrombin Time 11.6 SEC Prothromb Time International 1.0 RATIO Ratio Activated Partial 24.9 SEC Thromboplast Time Sodium Level 138 MEQ/L Potassium Level 3.8 MEQ/L Chloride Level 104 MEQ/L Carbon Dioxide Level 25.9 MEQ/L Anion Gap 8 MEQ/L Blood Urea Nitrogen 19 MG/DL Creatinine 0.90 MG/DL Random Glucose 270 MG/DL Calcium Level 8.0 MG/DL Total Bilirubin 0.3 MG/DL Aspartate Amino Transf 11 U/L (AST/SGOT) Alanine Aminotransferase 18 U/L (ALT/SGPT) Alkaline Phosphatase 92 U/L Total Protein 7.1 GM/DL Albumin 3.3 GM/DL Lipase 2561 U/L [facility] Medical Decision Making Medical Screen Exam Complete: Yes Emergency Medical Condition: Yes Interpretation(s) 1:46 AM. CBC within normal limit. BUN 19. Random glucose 270. Calcium 8.0. Lipase 2561. UA is negative. Differential Diagnosis Differential diagnosis including acute pancreatitis, gastritis, PUD, colitis, UTI, pyelonephritis, nephrolithiasis. Narrative Course 51-year-old male complains of epigastric abdominal pain and nausea vomiting. History of pancreatitis. Normal saline solution 1 25 cc an hour. Morphine 4 mg IV. Zofran 4 mg IV. Protonix 40 mg IV. Diagnosis Primary Impression: Acute pancreatitis Qualified Code: K85.90 - Acute pancreatitis without infection or necrosis, unspecified pancreatitis type Admitting Information Admitting Physician Requests: Admit Jose Maria Bloom MD Nov 26, 2016 23:30
[2016-11-26 23:49] LABS: AUTOMATED NEUTROPHIL # 4.6 TH/MM3 (1.8-7.7); BASOPHIL % 0.3 % (0.0-2.0); EOSINOPHIL # 0.1 TH/MM3 (0-0.4); EOSINOPHIL % 2.1 % (0.0-4.0); HEMATOCRIT 43.1 % (39.0-51.0); HEMO FLAGS DIFF FINAL; LYMPH % 22.3 % (9.0-44.0); LYMPHOCYTE # 1.5 TH/MM3 (1.0-4.8); MEAN CELL VOLUME 86.2 FL (80.0-100.0); MEAN CORPUSCULAR HGB CONC 33.6 % (32.0-36.0); MONO % 7.9 % (0.0-8.0); NEUT % 67.4 % (16.0-70.0); PLATELET COUNT 243 TH/MM3 (150-450); RED CELL DISTRIBUTION WIDTH 13.5 % (11.6-17.2); WHITE BLOOD COUNT 6.9 TH/MM3 (4.0-11.0)
[2016-11-27 00:08] LABS: APTT (PATIENT) 24.9 SEC (24.3-30.1); PROTHROMBIN TIME - PATIENT 11.6 SEC (9.8-11.6)
[2016-11-27 00:29] LABS: ALT (GPT) 18 U/L (12-78); ANION GAP 8 MEQ/L (5-15); AST (GOT) 11 U/L (15-37); BICARBONATE 25.9 MEQ/L (21.0-32.0); BLOOD UREA NITROGEN 19 MG/DL (7-18); CHLORIDE 104 MEQ/L (98-107); POTASSIUM 3.8 MEQ/L (3.5-5.1); SODIUM (NA) 138 MEQ/L (136-145)
[2016-11-27 00:31] LABS: ALKALINE PHOSPHATASE 92 U/L (45-117); TOTAL BILIRUBIN ADULT 0.3 MG/DL (0.2-1.0)
[2016-11-27 01:16] LABS: BLOOD, URINE NEG (NEG); COMMENT (UR) CULT NOT INDICATED; CULTURE IF INDICATED CULT NOT INDICATED; GLUCOSE,URINE 1000 mg/dL (NEG); KETONE, URINE NEG (NEG); NITRITE,URINE NEG (NEG); PH, URINE 5.5 (5.0-8.5); URINE COLOR YELLOW (YELLW/STRAW)
[2016-11-27] MEDS ORDERED: MORPHINE SULFATE 4 MG/ML INJ IV PUSH ONE (02:00)
[2016-11-27] MEDS ORDERED: DEXTROSE 50% IN WATER 50 ML VIAL(D50) IV PRN (02:15)
[2016-11-27] MEDS ORDERED: ONDANSETRON HCL 4 MG/2 ML VIAL IVP PRN (02:15)
[2016-11-27] MEDS ORDERED: MAGNESIUM HYDROXIDE SUSP 30 ML CUP PO PRN (02:15)
[2016-11-27] MEDS ORDERED: SENNOSIDES 8.6 MG TAB PO PRN (02:15)
[2016-11-27] MEDS ORDERED: GLUCAGON 1 MG/ML VIAL OTHER PRN (02:15)
[2016-11-27] MEDS ORDERED: BISACODYL 10 MG SUPP RECTAL PRN (02:15)
[2016-11-27] MEDS ORDERED: ACETAMINOPHEN 325 MG TAB PO PRN (02:15)
--- NOTE | 2016-11-27 02:44 | HHI.HP ---
HPI Service [facility] Primary Care Physician No Primary Care Physician Admission Diagnosis acute pancreatitis Diagnoses: (1) Pancreatitis Diagnosis: Principal (2) Dehydration Diagnosis: Principal (3) DM (diabetes mellitus) Diagnosis: Principal Travel History International Travel<30 Days: No Contact w/Intl Traveler <30 Da: No Traveled to Known Affected Are: No History of Present Illness This is a 51-year-old male with a PMH of Depression, HTN, DM and Diabetic Neuropathy who presented here with complaints of epigastric pain addition to nausea and vomiting starting yesterday afternoon after being discharged from the hospital. Recently admitted from 11/18-11/25/16 for Acute Pancreatitis, s/p eval by Dr. Yeung. CT Abd/Pelvis 11/18/16 w/ findings suspicious for pancreatitis, MRCP w/ acute pancreatitis at the pancreatic head level, no ductal dilatation. Lipase 2308 on admission, Lipase 210 on 11/20/16. Per patient, reports acute recurrence of abdominal pain w/ nausea/vomiting following discharge. Denies fever, chills or diarrhea. On arrival, BP 146/77, HR 100, O2 sat 97% on RA, Afebrile. CBC unremarkable. Chemistry essentially unremarkable except for BUN 19, previously 5 on 11/20/16. BS 270. Lipase 2561. CT Abd/Pelvis pending. Review of Systems Except as stated in HPI: all other systems reviewed are Neg ROS: 14 point review of systems otherwise negative. Past Family Social History Past Medical History PMH: Depression, HTN, DM and Diabetic Neuropathy Past Surgical History PAST SURGICAL HISTORY: None Allergies: Coded Allergies: Darvocet-N 100 (Verified Allergy, Severe, STOMACH CRAMPS, 11/17/16) Motrin (Verified Adverse Reaction, Severe, 11/17/16) Ibuprofen (Unverified Adverse Reaction, Mild, 11/17/16) Family History PAST FAMILY HISTORY: Reviewed. No h/o DM or CAD Social History PAST SOCIAL HISTORY: Negative for alcohol or drugs. Smokes cigars. Physical Exam Vital Signs Vital Signs Date Time Temp Pulse Resp B/P Pulse Ox O2 Delivery O2 Flow Rate FiO2 11/27/16 01:02 18 6/2/17 23:24 18 11/26/16 23:24 97 Room Air 11/26/16 23:21 98.1 100 18 146/77 97 Physical Exam PE: GENERAL: Middle-aged black male in no acute distress. HEENT: PERRLA, EOMI. No scleral icterus or conjunctival pallor. No lid lag or facial droop. CARDIOVASCULAR: Regular rate and rhythm. No obvious murmurs to auscultation. No chest tenderness to palpation. RESPIRATORY: No obvious rhonchi or wheezing. Clear to auscultation. Breath sounds equal bilaterally. GASTROINTESTINAL: Abdomen soft, epigastric tenderness to palpation, nondistended. BS normal. MUSCULOSKELETAL: Extremities without clubbing, cyanosis, or edema. No obvious deformities. NEUROLOGICAL: Awake, alert and oriented x4. No focal neurologic deficits. Moving both upper and lower extremities spontaneously. Laboratory Laboratory Tests Test 11/26/16 23:42 White Blood Count 6.9 Red Blood Count 5.00 Hemoglobin 14.5 Hematocrit 43.1 Mean Corpuscular Volume 86.2 Mean Corpuscular Hemoglobin 29.0 Mean Corpuscular Hemoglobin 33.6 Concent Red Cell Distribution Width 13.5 Platelet Count 243 Mean Platelet Volume 8.3 Neutrophils (%) (Auto) 67.4 Lymphocytes (%) (Auto) 22.3 Monocytes (%) (Auto) 7.9 Eosinophils (%) (Auto) 2.1 Basophils (%) (Auto) 0.3 Neutrophils # (Auto) 4.6 Lymphocytes # (Auto) 1.5 Monocytes # (Auto) 0.5 Eosinophils # (Auto) 0.1 Basophils # (Auto) 0.0 CBC Comment DIFF FINAL Differential Comment Prothrombin Time 11.6 Prothromb Time International 1.0 Ratio Activated Partial 24.9 Thromboplast Time Sodium Level 138 Potassium Level 3.8 Chloride Level 104 Carbon Dioxide Level 25.9 Anion Gap 8 Blood Urea Nitrogen 19 Creatinine 0.90 Random Glucose 270 Calcium Level 8.0 Total Bilirubin 0.3 Aspartate Amino Transf 11 (AST/SGOT) Alanine Aminotransferase 18 (ALT/SGPT) Alkaline Phosphatase 92 Total Protein 7.1 Albumin 3.3 Lipase 2561 Result Diagram: 11/26/16 2342 11/26/16 2342 Assessment and Plan Problem List: (1) Pancreatitis ICD Code: K85.9 Status: Acute (2) Dehydration ICD Code: E86.0 Status: Acute (3) DM (diabetes mellitus) ICD Code: E11.9 Status: Acute Assessment and Plan A/P: 1. Pancreatitis: Recurrent. Recent admit 11/18-11/25/16 for same, CT Abd/Pelvis 11/18/16 w/ evidence of pancreatitis, s/p eval by Dr. Yeung, MRCP w/ pancreatitis at the pancreatic head level, no ductal dilatation, images reviewed by me. Lipase 210 on 11/20/16, down from 2300. Now up to 2561. LFTs unchanged. Total Bili normal. Repeat CT Abd/Pelvis pending. Lipid Profile 2016 unremarkable. Protonix. Clear Liquids. Analgesics/antiemetics as needed. Consult GI for further evaluation. 2. DM: Check Hgb A1c. Resume home Insulin. Sliding scale w/ Accu-Cheks. 3. Diabetic Neuropathy: Resume home Lyrica. Analgesics as needed. 4. DVT Prophylaxis: SCD/teds. 5. Social work for DC planning as needed. 6. Case discussed at length with ER physician. Physician Certification 2 Midnight Certification Type: Admission for Inpatient Services Order for Inpatient Services The services are ordered in accordance with Medicare regulations or non- Medicare payer requirements, as applicable. In the case of services not specified as inpatient-only, they are appropriately provided as inpatient services in accordance with the 2-midnight benchmark. Estimated LOS (days): 2 days is the estimated time the patient will need to remain in the hospital, assuming treatment plan goals are met and no additional complications. Post-Hospital Plan: Not yet determined Lucille Uribe MD Nov 27, 2016 02:44
[2016-11-27] MEDS ORDERED: IOHEXOL 350 MG/ML 10 ML VIAL (for RAD DIAG) IV ONE (02:46)
[2016-11-27] MEDS: SODIUM CHLOR 0.9% 1000 ML INJ 1,000 ML IV SCH ×3 (02:54→22:02)
[2016-11-27 03:29] VITALS: BP 146/89; PULSE 92; RESP 18; TEMP 98.1; O2SAT 100
--- NOTE | 2016-11-27 03:36 | RADRPT ---
EXAM DATE/TIME: 11/27/2016 02:44 [facility] COMPARISON: MRCP W & W/O CONTRAST, November 19, 2016, 18:57. CT ABDOMEN & PELVIS W CONTRAST, November 18, 2016, 0:48. INDICATIONS : Abdomen pain with nausea. History of pancreatitis. IV CONTRAST: 100 cc Omnipaque 350 (iohexol) IV ORAL CONTRAST: No oral contrast ingested. RADIATION DOSE: 18.73 CTDIvol (mGy) MEDICAL HISTORY : Cardiovascular disease. Hypertension. Diabetes mellitus type 2.GERD Pancreatitis SURGICAL HISTORY : Cholecystectomy. ENCOUNTER: Initial ACUITY: 2 days PAIN SCALE: 10/10 LOCATION: abdomen TECHNIQUE: Volumetric scanning of the abdomen and pelvis was performed. Using automated exposure control and ad justment of the mA and/or kV according to patient size, radiation dose was kept as low as reasonably achievable to obtain optimal diagnostic quality images. FINDINGS: CT Abdomen: There is no change in acute pancreatitis mainly surrounding the head of the pancreas. The liver, spleen, kidneys, adrenals are unremarkable. There is no evidence for any appreciable patholog ical adenopathy, free fluid, or bowel obstruction. Moderate bibasilar atelectasis and/or infiltrate i s seen. There is evidence for prior cholecystectomy. Anterior abdominal wall fat hernia is present wi th opening of 4.8 cm without evidence for bowel herniation. CT pelvis: There is no evidence for mass, abscess formation, or any significant adenopathy within the pelvis. The prostate gland is inhomogeneous and measures 4.3 x 4.9 cm in AP and transverse diameters and nonspecific. There are scattered diverticuli mainly in the sigmoid colon without definite signs of diverticulitis. CONCLUSION: No change in acute pancreatitis, however bibasilar infiltrates have developed not pre sent previously. Julisa Ortez MD on November 27, 2016 at 3:28 Board Certified Radiologist. This report was verified electronically.
[2016-11-27] MEDS: CYCLOBENZAPRINE HCL 10 MG TAB PO PRN ×3 (04:25→22:12)
[2016-11-27] MEDS: LACTULOSE SYRUP 20 GM/30 ML CUP PO PRN (04:34)
[2016-11-27 05:15] VITALS: BP 143/81; PULSE 84; RESP 17; TEMP 97.2; O2SAT 99
[2016-11-27] MEDS: INSULIN ASPART SUPPLEMENTAL SCALE SQ SCH ×4 (05:23→21:00)
[2016-11-27] MEDS: DOCUSATE SODIUM 50 MG/SENNA 8.6 MG TAB PO SCH (08:44)
[2016-11-27] MEDS: PANTOPRAZOLE SODIUM 40 MG VIAL IV PUSH SCH ×2 (08:44→22:14)
[2016-11-27] MEDS: PREGABALIN 100 MG CAP PO SCH ×2 (08:44→22:13)
[2016-11-27] MEDS: SODIUM CHLORIDE 0.9% FLUSH 10 ML FLUSH IV FLUSH SCH ×2 (08:50→21:00)
[2016-11-27] MEDS: MORPHINE SULFATE 4 MG/ML INJ IV PRN ×3 (08:51→23:10)
[2016-11-27 08:57] LABS: AUTOMATED NEUTROPHIL # 4.5 TH/MM3 (1.8-7.7); BASOPHIL % 0.4 % (0.0-2.0); EOSINOPHIL # 0.1 TH/MM3 (0-0.4); EOSINOPHIL % 2.1 % (0.0-4.0); HEMATOCRIT 41.5 % (39.0-51.0); HEMO FLAGS DIFF FINAL; LYMPH % 23.2 % (9.0-44.0); LYMPHOCYTE # 1.6 TH/MM3 (1.0-4.8); MEAN CELL VOLUME 85.5 FL (80.0-100.0); MEAN CORPUSCULAR HEMOGLOBIN 28.7 PG (27.0-34.0); MEAN CORPUSCULAR HGB CONC 33.6 % (32.0-36.0); MONO % 9.6 % (0.0-8.0); NEUT % 64.7 % (16.0-70.0); PLATELET COUNT 277 TH/MM3 (150-450); RED BLOOD COUNT 4.86 MIL/MM3 (4.50-5.90); RED CELL DISTRIBUTION WIDTH 13.7 % (11.6-17.2); WHITE BLOOD COUNT 6.9 TH/MM3 (4.0-11.0)
[2016-11-27] MEDS: INSULIN DETEMIR 100 UNITS/ML VIAL SQ SCH ×2 (08:57→21:00)
[2016-11-27 09:28] LABS: ALKALINE PHOSPHATASE 94 U/L (45-117); ALT (GPT) 24 U/L (12-78); ANION GAP 9 MEQ/L (5-15); AST (GOT) 20 U/L (15-37); BICARBONATE 23.5 MEQ/L (21.0-32.0); BLOOD UREA NITROGEN 11 MG/DL (7-18); CHLORIDE 107 MEQ/L (98-107); GLOMERULAR FILTRATION RATE 143 ML/MIN (>89); POTASSIUM 3.7 MEQ/L (3.5-5.1); SODIUM (NA) 139 MEQ/L (136-145); TOTAL BILIRUBIN ADULT 0.4 MG/DL (0.2-1.0)
--- NOTE | 2016-11-27 09:42 | HHI.PR ---
Subjective Remarks Patient complains of intermittent epigastric abd pain, improved with current analgesic regimen. He is also complaining of low back pain, which is chronic. He reports that the pain was severe at the last hospital stay, started on PT. He never had outpatient PT for the back pain. He states that the pain has been so severe that it has limited ability to ambulate and dress himself, he has become reliant on his girlfriend. He reports having some improvement in pain with analgesia regimen but laying in bed is causing significant discomfort. He also notes having sever pain when sitting in bedside chair. He has experienced abd pain with po hydration. Objective Vitals Vital Signs Date Time Temp Pulse Resp B/P Pulse Ox O2 Delivery O2 Flow Rate FiO2 11/27/16 05:15 97.2 84 17 143/81 99 11/27/16 03:29 98.1 92 18 146/89 100 Room Air 11/27/16 02:55 18 11/27/16 01:02 18 11/26/16 23:24 18 11/26/16 23:24 97 Room Air 11/26/16 23:21 98.1 100 18 146/77 97 Result Diagram: 11/27/16 0804 11/27/16 0804 Imaging Last Impressions Abdomen/Pelvis CT 11/27/16 0157 Signed Impressions: Service Date/Time: Sunday, November 27, 2016 02:44 - CONCLUSION: No change in acute pancreatitis, however bibasilar infiltrates have developed not present previously. Julisa Ortez MD Objective Remarks GENERAL: Middle-aged black male in distress with movement. HEENT: PERRLA, EOMI. No scleral icterus or conjunctival pallor. No lid lag or facial droop. CARDIOVASCULAR: Regular rate and rhythm. No obvious murmurs to auscultation. No chest tenderness to palpation. RESPIRATORY: No obvious rhonchi or wheezing. Clear to auscultation. Breath sounds equal bilaterally. GASTROINTESTINAL: Abdomen soft, epigastric tenderness to palpation, nondistended. BS normal. MUSCULOSKELETAL: Extremities without clubbing, cyanosis, or edema. No obvious deformities. NEUROLOGICAL: Awake, alert and oriented x4. No focal neurologic deficits. Moving both upper and lower extremities spontaneously. Urinary Catheter: No Vascular Central Line Catheter: No A/P Problem List: (1) Pancreatitis ICD Code: K85.9 Status: Acute (2) Dehydration ICD Code: E86.0 Status: Chronic (3) DM (diabetes mellitus) ICD Code: E11.9 Status: Chronic Assessment and Plan Patient is a 51 yo M, hx of recurrent pancreatitis, readmitted to the hospital on 11/26 with significant abdominal pain, found to have elevated lipase suggestive of pancreatitis. Pancreatitis: Recurrent. Recent admit 11/18-11/25/16 for same reason, CT Abd/ Pelvis 11/18/16 w/ evidence of pancreatitis, s/p eval by Dr. Yeung, MRCP w/ pancreatitis at the pancreatic head level, no ductal dilatation, images reviewed by me. Lipase 210 on 11/20/16, down from 2300. Lipase 2561 on admission. LFTs unchanged. Total Bili normal. Repeat CT abdomen showing no change in acute pancreatitis. Lipid Profile 10/2016 unremarkable. Protonix. Clear Liquids. -Consult GI for further evaluation. -IV fluids -Oxycodone 5 mg by mouth every 4 hours when necessary pain 35 -Morphine 2 mg IV every 3 hours when necessary pain 610 -Protonix 40 mg IV every 12 -Lactulose 30 ML by mouth daily -Zofran prn -Clear liquid diet -EGD on Tuesday DM. Serum glucose 270 on admission, 105 this morning. -Hgb A1c 12.5 on 11/19 -Levemir 25 mg twice a day - Sliding scale w/ Accu-Cheks. Diabetic Neuropathy - Resume home Lyrica. Back pain -Flexeril -Pain medication as above -Physical therapy consult -Bengay prn DVT Prophylaxis: SCD/teds. Diet: Clear liquid NS at 100 mls/hr Electrolytes: Within normal limits Discharge Planning likely 3+ day hospital course, to have EGD in 2 days Problem Qualifiers (1) DM (diabetes mellitus): Qualified Code: E11.9 - Type 2 diabetes mellitus without complication, with long-term current use of insulin Selene Dow MD Nov 27, 2016 09:42
--- NOTE | 2016-11-27 09:55 | PD.CONS ---
HPI History of Present Illness This is a 51 year old male PMH of Depression, HTN, DM and Diabetic Neuropathy who presented with acute onset of epigastric pain, nausea and vomiting and was admitted for acute pancreatitis. patient was recently discharged from the hospital for similar presentation (11/18/16-11/21/16). During this last admission , he was found to have acute pancreatitis but showed clinical improvement and was discharged home. States post discharge, he had diarrhea for 2 days, was able to eat okay, then on Tuesday, he noticed gradual pain with eating, he started eating very little, but still every time he eat, he would feel pain, bloating and early satiety, so he didn't eat much. At the same time, he wasn't able to move his bowels, he tried laxatives without relief. The pain was diffuse abdominal pain that is worse in his upper abdomen. He reports that this has became severe yesterday, burning, constant pain. He had 4 episodes of emesis last night before he finally came here. He denies recent alcohol intake. last time he had alcohol was "3 cups" of joelle on mother's day. previous work up during last admission included CT, MRCP, IGG 4, triglycerides. CT Abd/pelvis (11-18) ---> some indistinctness of pancreatic head suspicious for pancreatitis. MRCP (11/19) --> Acute pancreatitis at the pancreatic head level. No pseudocyst. No ductal dilatation or stone. The gallbladder is surgically absent. IGG total, IgG1, 2, 3 normal limit, IgG4 high at 126.3. Triglycerides were normal. This is would be 3rd episode of acute pancreatitis. He denies Advil or Ibuprofen. No known family hx of pancreatitis. CT (11/27/16) No change in acute pancreatitis, however bibasilar infiltrates have developed not present previously. Lipase on admission 2561 ---> 2511 today, LFTs normal. he is tolerating clears ok. He denies hematemesis, melena or hematochezia. He never had colonoscopy before. He had EGD many years ago. (Jessica Geiger) PFSH Past Medical History PMH: Depression, HTN, DM and Diabetic Neuropathy Past Surgical History PAST SURGICAL HISTORY: None (Jessica Geiger) Coded Allergies: Darvocet-N 100 (Verified Allergy, Severe, STOMACH CRAMPS, 11/17/16) Motrin (Verified Adverse Reaction, Severe, 11/17/16) Ibuprofen (Unverified Adverse Reaction, Mild, 11/17/16) Medications Current Medications Medications (Trade) Dose Ordered Sig/Travon Route Start Time Stop Time Status Last Admin (D50w (Vial) Inj) 50 ml UNSCH PRN IV 11/27/16 02:15 Glucagon 1 mg 1 mg UNSCH PRN OTHER 11/27/16 02:15 (NS 1000 ml Inj) 1,000 ml @ 100 mls/hr Q10H IV 11/27/16 02:02 11/27/16 02:54 (NS Flush) 2 ml UNSCH PRN IV FLUSH 11/27/16 02:15 (NS Flush) 2 ml BID IV FLUSH 11/27/16 09:00 (Zofran Inj) 4 mg Q6H PRN IVP 11/27/16 02:15 (Tylenol) 650 mg Q6H PRN PO 11/27/16 02:15 (Morphine Inj) 2 mg Q3H PRN IV 11/27/16 02:15 11/27/16 08:51 (Roxicodone) 5 mg Q4H PRN PO 11/27/16 02:15 11/27/16 04:25 (Melodie-Colace) 1 tab BID PO 11/27/16 09:00 11/27/16 08:44 (Milk Of Magnesia Liq) 30 ml Q12H PRN PO 11/27/16 02:15 (Senokot) 17.2 mg Q12H PRN PO 11/27/16 02:15 (Dulcolax Supp) 10 mg DAILY PRN RECTAL 11/27/16 02:15 (Lactulose Liq) 30 ml DAILY PRN PO 11/27/16 02:15 11/27/16 04:34 (Protonix Inj) 40 mg Q12H IV PUSH 11/27/16 09:00 11/27/16 08:44 (Flexeril) 5 mg Q8H PRN PO 11/27/16 02:15 11/27/16 04:25 (Levemir Inj) 25 units BID SQ 11/27/16 09:00 (Lyrica) 100 mg BID PO 11/27/16 09:00 11/27/16 08:44 Family History No family hx of colon cancer, no family hx of pancreatitis Social History PAST SOCIAL HISTORY: Negative for alcohol or drugs. Smokes cigars. (Jessica Geiger) Review of Systems Constitutional: COMPLAINS OF: Fatigue, Chills Endocrine: DENIES: Polyuria Eyes: DENIES: Double Vision Ears, nose, mouth, throat: DENIES: Hoarseness Respiratory: DENIES: Shortness of breath Cardiovascular: DENIES: Lower Extremity Edema Gastrointestinal: COMPLAINS OF: Abdominal pain, Constipation, Nausea, Vomiting , Anorexia, DENIES: Black stools, Bloody stools, Difficulty Swallowing, Odynophagia, Swelling of Abdomen, Heartburn, Hematemesis Genitourinary: DENIES: Hematuria Musculoskeletal: DENIES: Neck pain Integumentary: DENIES: Jaundice Hematologic/lymphatic: DENIES: Bruising Immunologic/allergic: DENIES: Eczema Neurologic: DENIES: Abnormal gait Psychiatric: DENIES: Anxiety (Jessica Geiger) GI Exam Vitals I&O Vital Signs Date Time Temp Pulse Resp B/P Pulse Ox O2 Delivery O2 Flow Rate FiO2 11/27/16 05:15 97.2 84 17 143/81 99 11/27/16 03:29 98.1 92 18 146/89 100 Room Air 11/27/16 02:55 18 11/27/16 01:02 18 11/26/16 23:24 18 11/26/16 23:24 97 Room Air 11/26/16 23:21 98.1 100 18 146/77 97 Imaging Last Impressions Abdomen/Pelvis CT 11/27/16 0157 Signed Impressions: Service Date/Time: Sunday, November 27, 2016 02:44 - CONCLUSION: No change in acute pancreatitis, however bibasilar infiltrates have developed not present previously. Julisa Ortez MD Laboratory Test 11/26/16 11/27/16 23:42 08:04 White Blood Count 6.9 TH/MM3 6.9 TH/MM3 Red Blood Count 5.00 MIL/MM3 4.86 MIL/MM3 Hemoglobin 14.5 GM/DL 14.0 GM/DL Hematocrit 43.1 % 41.5 % Mean Corpuscular Volume 86.2 FL 85.5 FL Mean Corpuscular Hemoglobin 29.0 PG 28.7 PG Mean Corpuscular Hemoglobin 33.6 % 33.6 % Concent Red Cell Distribution Width 13.5 % 13.7 % Platelet Count 243 TH/MM3 277 TH/MM3 Mean Platelet Volume 8.3 FL 8.0 FL Neutrophils (%) (Auto) 67.4 % 64.7 % Lymphocytes (%) (Auto) 22.3 % 23.2 % Monocytes (%) (Auto) 7.9 % 9.6 % Eosinophils (%) (Auto) 2.1 % 2.1 % Basophils (%) (Auto) 0.3 % 0.4 % Neutrophils # (Auto) 4.6 TH/MM3 4.5 TH/MM3 Lymphocytes # (Auto) 1.5 TH/MM3 1.6 TH/MM3 Monocytes # (Auto) 0.5 TH/MM3 0.7 TH/MM3 Eosinophils # (Auto) 0.1 TH/MM3 0.1 TH/MM3 Basophils # (Auto) 0.0 TH/MM3 0.0 TH/MM3 CBC Comment DIFF FINAL DIFF FINAL Differential Comment Prothrombin Time 11.6 SEC Prothromb Time International 1.0 RATIO Ratio Activated Partial 24.9 SEC Thromboplast Time Sodium Level 138 MEQ/L Potassium Level 3.8 MEQ/L Chloride Level 104 MEQ/L Carbon Dioxide Level 25.9 MEQ/L Anion Gap 8 MEQ/L Blood Urea Nitrogen 19 MG/DL Creatinine 0.90 MG/DL Random Glucose 270 MG/DL Calcium Level 8.0 MG/DL Total Bilirubin 0.3 MG/DL Aspartate Amino Transf 11 U/L (AST/SGOT) Alanine Aminotransferase 18 U/L (ALT/SGPT) Alkaline Phosphatase 92 U/L Total Protein 7.1 GM/DL Albumin 3.3 GM/DL Lipase 2561 U/L Physical Examination HEENT: normocephalic; atraumatic; no jaundice. Throat is clear. NECK: Neck is supple, no JVD, no lymphadenopathy. CHEST: Chest is clear to auscultation and percussion. CARDIAC: Regular rate and rhythm with no murmur gallop or rubs. ABDOMEN: Soft, nondistended, Diffused tenderness worse in epigastric area; no hepatosplenomegaly; bowel sounds are present in all four quadrants. EXTREMITIES: No clubbing, cyanosis, or edema. SKIN: Normal; no rash; no jaundice. MAIL ROOM CLERK: No focal deficits; alert and oriented times three. (Amawi,Khawla STAPLER HAND) Assessment and Plan Plan - Recurrent pancreatitis (3rd episode). unclear etiology, he has hx of heavy alcohol but not the last year. except for 3 drinks on mother's day. Denies recent alcohol intake patient was recently discharged from the hospital for similar presentation (-11/21/16). CT (11/27/16) No change in acute pancreatitis, however bibasilar infiltrates have developed not present previously. Lipase on admission 2561 ---> 2511 today, LFTs normal. he is tolerating clears ok. CT Abd/pelvis (11-18) ---> some indistinctness of pancreatic head suspicious for pancreatitis. MRCP (11/19) --> Acute pancreatitis at the pancreatic head level. No pseudocyst. No ductal dilatation or stone. The gallbladder is surgically absent. IGG total, IgG1, 2, 3 normal limit, IgG4 high at 126.3. Triglycerides were normal. He denies Advil or Ibuprofen. No known family hx of pancreatitis. He never had colonoscopy before. He had EGD many years ago. - DM, Depression, HTN per attending PLAN - Clear liquid - EGD on Tuesday - Will need colonoscopy at some point, timing to be determined - CBC, lipase, LFTs in am - Iv hydration - Pain/antiemetics meds - The pt was seen and examined by myself and Dr Yeung and this note is written on his behalf. (Jessica Geiger) Physician Comments Known to us from recent admission, plan as above, will follow up with you. ( Ravi Yeung MD) Jessica Geiger Nov 27, 2016 09:55 Ravi Yeung MD Nov 27, 2016 17:50
[2016-11-27 12:00] VITALS: BP 167/95; PULSE 82; RESP 20; TEMP 95.7; O2SAT 96
[2016-11-27] MEDS ORDERED: MENTHOL/METHYL SALICYLATE OINT 30 GM TUBE TOPICAL PRN (14:15)
[2016-11-27 15:47] VITALS: BP 182/93; PULSE 101; RESP 20; TEMP 97.7; O2SAT 96
[2016-11-27 20:49] VITALS: BP 152/81; PULSE 86; RESP 17; TEMP 97.6; O2SAT 97
[2016-11-28] MEDS: DOCUSATE SODIUM 50 MG/SENNA 8.6 MG TAB PO SCH ×3 (00:36→21:06)
[2016-11-28 00:53] VITALS: BP 140/82; PULSE 81; RESP 16; TEMP 98.1; O2SAT 97
[2016-11-28] MEDS: SODIUM CHLORIDE 0.9% FLUSH 10 ML FLUSH IV FLUSH PRN ×3 (03:43→22:36)
[2016-11-28] MEDS: MORPHINE SULFATE 4 MG/ML INJ IV PRN ×3 (03:43→22:36)
[2016-11-28 06:26] VITALS: BP 147/88; PULSE 83; RESP 16; TEMP 98; O2SAT 96
[2016-11-28] MEDS: INSULIN ASPART SUPPLEMENTAL SCALE SQ SCH ×4 (07:00→21:00)
[2016-11-28] MEDS: PREGABALIN 100 MG CAP PO SCH ×2 (07:47→21:08)
[2016-11-28] MEDS: PANTOPRAZOLE SODIUM 40 MG VIAL IV PUSH SCH ×2 (07:48→21:09)
[2016-11-28] MEDS: INSULIN DETEMIR 100 UNITS/ML VIAL SQ SCH ×2 (07:49→21:00)
[2016-11-28] MEDS: LACTULOSE SYRUP 20 GM/30 ML CUP PO PRN (07:58)
[2016-11-28 08:02] LABS: AUTOMATED NEUTROPHIL # 2.1 TH/MM3 (1.8-7.7); BASOPHIL % 0.3 % (0.0-2.0); EOSINOPHIL # 0.1 TH/MM3 (0-0.4); EOSINOPHIL % 2.4 % (0.0-4.0); HEMO FLAGS DIFF FINAL; LYMPH % 35.6 % (9.0-44.0); LYMPHOCYTE # 1.5 TH/MM3 (1.0-4.8); MEAN CELL VOLUME 86.1 FL (80.0-100.0); MEAN CORPUSCULAR HEMOGLOBIN 28.3 PG (27.0-34.0); MEAN CORPUSCULAR HGB CONC 32.9 % (32.0-36.0); MONO % 13.7 % (0.0-8.0); PLATELET COUNT 217 TH/MM3 (150-450); RED BLOOD COUNT 4.65 MIL/MM3 (4.50-5.90); RED CELL DISTRIBUTION WIDTH 13.4 % (11.6-17.2); WHITE BLOOD COUNT 4.3 TH/MM3 (4.0-11.0)
[2016-11-28] MEDS: SODIUM CHLOR 0.9% 1000 ML INJ 1,000 ML IV SCH (08:02)
[2016-11-28 08:23] LABS: INDIRECT BILIRUBIN 0.2 MG/DL (0.0-0.8); TOTAL BILIRUBIN ADULT 0.3 MG/DL (0.2-1.0)
[2016-11-28] MEDS: SODIUM CHLORIDE 0.9% FLUSH 10 ML FLUSH IV FLUSH SCH ×2 (09:00→21:00)
[2016-11-28 09:20] VITALS: BP 155/85; PULSE 85; RESP 19; TEMP 98.8; O2SAT 99
--- NOTE | 2016-11-28 10:04 | HHI.PR ---
Subjective Remarks Follow-up for pancreatitis and chronic lower back pain. Patient stated that abdominal pain improved and is intermittent. He stated that he's been battling chronic lower back pain and needs will be to see pain management soon. Patient also stated that he feels nauseous but denied any emesis. He has no other complaints. Objective Vitals Vital Signs Date Time Temp Pulse Resp B/P Pulse Ox O2 Delivery O2 Flow Rate FiO2 11/28/16 09:20 98.8 85 19 155/85 99 11/28/16 06:26 98.0 83 16 147/88 96 11/28/16 00:53 98.1 81 16 140/82 97 11/27/16 20:49 97.6 86 17 152/81 97 11/27/16 15:47 97.7 101 20 182/93 96 11/27/16 12:00 95.7 82 20 167/95 96 I/O 11/27/16 11/27/16 11/27/16 11/28/16 11/28/16 11/28/16 07:00 15:00 23:00 07:00 15:00 23:00 Intake Total 720 ml Output Total 650 ml 2400 ml Balance -650 ml -1680 ml Intake Oral 720 ml Output Urine Total 650 ml 2400 ml # Bowel Movements 0 Result Diagram: 11/28/16 0729 11/27/16 0804 Objective Remarks GENERAL: in NAD CARDIOVASCULAR: Regular rate and rhythm without murmurs, gallops, or rubs. RESPIRATORY: Breath sounds equal bilaterally. No accessory muscle use. GASTROINTESTINAL: Abdomen soft, non-tender, nondistended. MUSCULOSKELETAL: No cyanosis, or edema. Right upper gluteal area positive for muscle spasms. No tenderness to palpation of his spinous process during examination. 5 out of 5 lower extreme E strength. BACK: Nontender without obvious deformity. No CVA tenderness. Medications and IVs Current Medications Morphine Sulfate (Morphine Inj) 4 mg ONCE ONCE IV PUSH Last administered on 23:47; Start 11/26/16 at 23:30; Stop 11/26/16 at 23:31; Status DC Ondansetron HCl (Zofran Inj) 4 mg ONCE ONCE IVP Last administered on 11/26/16 23:48; Start 11/26/16 at 23:30; Stop 11/26/16 at 23:31; Status DC Pantoprazole Sodium 40 mg 40 mg ONCE ONCE IVP Last administered on 11/26/16 23 :48; Start 11/26/16 at 23:30; Stop 11/26/16 at 23:31; Status DC Sodium Chloride (NS 1000 ml Inj) 1,000 ml @ 125 mls/hr Q8H IV Last administered on 11/26/16 23:47; Start 11/26/16 at 23:21; Stop 11/27/16 at 07:20; Status DC Morphine Sulfate (Morphine Inj) 4 mg ONCE ONCE IV PUSH Last administered on 02:08; Start 11/27/16 at 02:00; Stop 11/27/16 at 02:01; Status DC Dextrose (D50w (Vial) Inj) 50 ml UNSCH PRN IV HYPOGLYCEMIA-SEE COMMENTS; Start 11/27/16 at 02:15 Glucagon (Glucagon Inj) 1 mg UNSCH PRN OTHER HYPOGLYCEMIA-SEE COMMENTS; Start 11/27/16 at 02:15 Insulin Aspart 1 1 ACHS SLIDING SCALE SQ Last administered on 11/27/16 19:16; Start 11/27/16 at 07:00 Sodium Chloride (NS 1000 ml Inj) 1,000 ml @ 100 mls/hr Q10H IV Last administered on 11/27/16 22:02; Start 11/27/16 at 02:02 Sodium Chloride (NS Flush) 2 ml UNSCH PRN IV FLUSH FLUSH AFTER USING IV ACCESS Last administered on 11/28/16 06:33; Start 11/27/16 at 02:15 Sodium Chloride (NS Flush) 2 ml BID IV FLUSH ; Start 11/27/16 at 09:00 Ondansetron HCl (Zofran Inj) 4 mg Q6H PRN IVP NAUSEA OR VOMITING; Start at 02:15 Acetaminophen (Tylenol) 650 mg Q6H PRN PO FEVER; Start 11/27/16 at 02:15 Morphine Sulfate (Morphine Inj) 2 mg Q3H PRN IV Pain 6-10 Last administered on 11/28/16 06:32; Start 11/27/16 at 02:15 Oxycodone HCl (Roxicodone) 5 mg Q4H PRN PO PAIN SCALE 3 TO 5 Last administered on 11/28/16 07:47; Start 11/27/16 at 02:15 Senna/Docusate Sodium (Melodie-Colace) 1 tab BID PO Last administered on 11/28/16 07:47; Start 11/27/16 at 09:00 Magnesium Hydroxide (Milk Of Magnesia Liq) 30 ml Q12H PRN PO MILD - MODERATE CONSTIPATION; Start 11/27/16 at 02:15 Sennosides (Senokot) 17.2 mg Q12H PRN PO MODERATE - SEVERE CONSTIPATION; Start 11/27/16 at 02:15 Bisacodyl (Dulcolax Supp) 10 mg DAILY PRN RECTAL SEVERE CONSITIPATION; Start at 02:15 Lactulose (Lactulose Liq) 30 ml DAILY PRN PO SEVERE CONSITIPATION Last administered on 11/28/16 07:58; Start 11/27/16 at 02:15 Pantoprazole Sodium (Protonix Inj) 40 mg Q12H IV PUSH Last administered on 07:48; Start 11/27/16 at 09:00 Cyclobenzaprine HCl (Flexeril) 5 mg Q8H PRN PO SPASM Last administered on 22:12; Start 11/27/16 at 02:15 Insulin Detemir (Levemir Inj) 25 units BID SQ Last administered on 11/28/16 07: 49; Start 11/27/16 at 09:00 Pregabalin (Lyrica) 100 mg BID PO Last administered on 11/28/16 07:47; Start at 09:00 Iohexol (Omnipaque 350 Inj) 100 ml STK-MED ONCE IV Last administered on 02:46; Start 11/27/16 at 02:46; Stop 11/27/16 at 02:47; Status DC Menthol/Methyl Salicylate (Kun Falcon Oint) 1 applic UNSCH PRN TOPICAL low back pain; Start 11/27/16 at 14:15 A/P Problem List: (1) Pancreatitis ICD Code: K85.9 Status: Acute (2) Dehydration ICD Code: E86.0 Status: Chronic (3) DM (diabetes mellitus) ICD Code: E11.9 Status: Chronic Assessment and Plan Patient is a 51 yo M, hx of recurrent pancreatitis, readmitted to the hospital on 11/26 with significant abdominal pain, found to have elevated lipase suggestive of pancreatitis. Pancreatitis: Recurrent. Recent admit 11/18-11/25/16 for same reason, CT Abd/ Pelvis 11/18/16 w/ evidence of pancreatitis, s/p eval by Dr. Yeung, MRCP w/ pancreatitis at the pancreatic head level, no ductal dilatation, images reviewed by me. Lipase 210 on 11/20/16, down from 2300. Lipase 2561 on admission. LFTs unchanged. Total Bili normal. Repeat CT abdomen showing no change in acute pancreatitis. Lipid Profile 10/2016 unremarkable. Protonix. Clear Liquids. -Consult GI for further evaluation. -IV fluids -Oxycodone 5 mg by mouth every 4 hours when necessary pain 35 -Morphine 2 mg IV every 3 hours when necessary pain 610 -Protonix 40 mg IV every 12 -Lactulose 30 ML by mouth daily -Zofran prn -Clear liquid diet -Patient schedule for EGD tomorrow so will need to be nothing by mouth tonight. DM. Serum glucose 270 on admission, 105 this morning. -Hgb A1c 12.5 on 11/19 -Levemir 25 mg twice a day - Sliding scale w/ Accu-Cheks. Diabetic Neuropathy - Resume home Lyrica. Back pain -This actually seems to be exacerbated more due to muscle spasms. Will add a Lidoderm patch and schedule Flexeril 10 mg every 8 hours. -Patient stated that his insurance company is working on getting him comprehensive care. DVT Prophylaxis: SCD/teds. Discharge Planning Patient will have his EGD tomorrow and he continues to be symptomatic so requires continual hospitalization. Problem Qualifiers (1) DM (diabetes mellitus): Qualified Code: E11.9 - Type 2 diabetes mellitus without complication, with long-term current use of insulin Shraddha Covington MD Nov 28, 2016 10:04
[2016-11-28] MEDS: CYCLOBENZAPRINE HCL 10 MG TAB PO SCH ×3 (10:49→21:08)
[2016-11-28] MEDS: LIDOCAINE HCL 5% PATCH T-DERMAL SCH (10:51)
--- NOTE | 2016-11-28 10:51 | HHI.GIFU ---
Subjective Remarks Significant improvement and less pain. Objective Vitals I&O Vital Signs Date Time Temp Pulse Resp B/P Pulse Ox O2 Delivery O2 Flow Rate FiO2 11/28/16 09:20 98.8 85 19 155/85 99 11/28/16 06:26 98.0 83 16 147/88 96 11/28/16 00:53 98.1 81 16 140/82 97 11/27/16 20:49 97.6 86 17 152/81 97 11/27/16 15:47 97.7 101 20 182/93 96 11/27/16 12:00 95.7 82 20 167/95 96 I/O 11/27/16 11/27/16 11/27/16 11/28/16 11/28/16 11/28/16 07:00 15:00 23:00 07:00 15:00 23:00 Intake Total 720 ml Output Total 650 ml 2400 ml Balance -650 ml -1680 ml Intake Oral 720 ml Output Urine Total 650 ml 2400 ml # Bowel Movements 0 Laboratory Laboratory Tests Test 11/28/16 07:29 White Blood Count 4.3 Red Blood Count 4.65 Hemoglobin 13.2 Hematocrit 40.0 Mean Corpuscular Volume 86.1 Mean Corpuscular Hemoglobin 28.3 Mean Corpuscular Hemoglobin 32.9 Concent Red Cell Distribution Width 13.4 Platelet Count 217 Mean Platelet Volume 7.9 Neutrophils (%) (Auto) 48.0 Lymphocytes (%) (Auto) 35.6 Monocytes (%) (Auto) 13.7 Eosinophils (%) (Auto) 2.4 Basophils (%) (Auto) 0.3 Neutrophils # (Auto) 2.1 Lymphocytes # (Auto) 1.5 Monocytes # (Auto) 0.6 Eosinophils # (Auto) 0.1 Basophils # (Auto) 0.0 CBC Comment DIFF FINAL Differential Comment Total Bilirubin 0.3 Direct Bilirubin 0.1 Indirect Bilirubin 0.2 Aspartate Amino Transf 23 (AST/SGOT) Alanine Aminotransferase 29 (ALT/SGPT) Alkaline Phosphatase 99 Total Protein 6.4 Albumin 2.9 Lipase 668 Physical Exam HEENT: Pupils round and reactive to light; normocephalic; atraumatic; no jaundice. Throat is clear. NECK: Neck is supple, no JVD, no lymphadenopathy. CHEST: Chest is clear to auscultation and percussion. CARDIAC: Regular rate and rhythm with no murmur gallop or rubs. ABDOMEN: Soft, nondistended, minimal tenderness; no hepatosplenomegaly; bowel sounds are present in all four quadrants. EXTREMITIES: No clubbing, cyanosis, or edema. Assessment and Plan Plan - Recurrent pancreatitis (3rd episode). unclear etiology, he has hx of heavy alcohol but not the last year. except for 3 drinks on mother's day. Denies recent alcohol intake patient was recently discharged from the hospital for similar presentation (-11/21/16). CT (11/27/16) No change in acute pancreatitis, however bibasilar infiltrates have developed not present previously. Lipase on admission 2561 ---> 2511 today, LFTs normal. he is tolerating clears ok. CT Abd/pelvis (11-18) ---> some indistinctness of pancreatic head suspicious for pancreatitis. MRCP (11/19) --> Acute pancreatitis at the pancreatic head level. No pseudocyst. No ductal dilatation or stone. The gallbladder is surgically absent. IGG total, IgG1, 2, 3 normal limit, IgG4 high at 126.3. Triglycerides were normal. He denies Advil or Ibuprofen. No known family hx of pancreatitis. - DM, Depression, HTN per attending PLAN - Liquid diet - EGD on Tuesday - Will need colonoscopy as outpatient - CBC, lipase, LFTs in am - IV hydration - Pain/antiemetics Ravi Marmolejo MD Nov 28, 2016 10:51
[2016-11-28 11:45] VITALS: BP 136/85; PULSE 85; RESP 18; TEMP 96.2; O2SAT 99
[2016-11-28 14:45] VITALS: BP 135/88; PULSE 87; RESP 19; TEMP 96.6; O2SAT 98
[2016-11-28 20:00] VITALS: BP 164/92; PULSE 94; RESP 24; TEMP 98.2; O2SAT 93
[2016-11-29] VITALS (7 sets, daily range): BP systolic 136–167; BP diastolic 68–98; PULSE 82–109; RESP 16–20; TEMP 94.1–98.6; O2SAT 95–99
[2016-11-29] MEDS: CYCLOBENZAPRINE HCL 10 MG TAB PO SCH ×3 (05:31→21:34)
[2016-11-29] MEDS: MORPHINE SULFATE 4 MG/ML INJ IV PRN ×3 (06:53→21:35)
[2016-11-29] MEDS: INSULIN ASPART SUPPLEMENTAL SCALE SQ SCH ×4 (07:00→21:23)
[2016-11-29 07:26] LABS: HEMATOCRIT 39.3 % (39.0-51.0); MEAN CELL VOLUME 85.1 FL (80.0-100.0); MEAN CORPUSCULAR HEMOGLOBIN 28.7 PG (27.0-34.0); MEAN CORPUSCULAR HGB CONC 33.7 % (32.0-36.0); PLATELET COUNT 223 TH/MM3 (150-450); RED BLOOD COUNT 4.61 MIL/MM3 (4.50-5.90); RED CELL DISTRIBUTION WIDTH 12.9 % (11.6-17.2); REVIEW FLAG FINAL; WHITE BLOOD COUNT 4.4 TH/MM3 (4.0-11.0)
[2016-11-29] MEDS: INSULIN DETEMIR 100 UNITS/ML VIAL SQ SCH ×2 (07:49→21:24)
[2016-11-29 08:00] LABS: ALT (GPT) 37 U/L (12-78); ANION GAP 6 MEQ/L (5-15); AST (GOT) 29 U/L (15-37); BICARBONATE 28.3 MEQ/L (21.0-32.0); BLOOD UREA NITROGEN 6 MG/DL (7-18); CHLORIDE 104 MEQ/L (98-107); GLOMERULAR FILTRATION RATE 143 ML/MIN (>89); POTASSIUM 3.6 MEQ/L (3.5-5.1); SODIUM (NA) 138 MEQ/L (136-145)
[2016-11-29 08:06] LABS: ALKALINE PHOSPHATASE 118 U/L (45-117); TOTAL BILIRUBIN ADULT 0.2 MG/DL (0.2-1.0)
[2016-11-29] MEDS: LIDOCAINE HCL 5% PATCH T-DERMAL SCH (08:51)
[2016-11-29] MEDS: PREGABALIN 100 MG CAP PO SCH ×2 (08:52→21:34)
[2016-11-29] MEDS: DOCUSATE SODIUM 50 MG/SENNA 8.6 MG TAB PO SCH ×2 (08:52→21:34)
[2016-11-29] MEDS: PANTOPRAZOLE SODIUM 40 MG VIAL IV PUSH SCH ×2 (08:52→21:34)
[2016-11-29] MEDS: SODIUM CHLORIDE 0.9% FLUSH 10 ML FLUSH IV FLUSH SCH ×2 (09:00→21:35)
[2016-11-29] MEDS ORDERED: PROPOFOL 200 MG/20 ML AMP IV PUSH ONE (10:04)
--- NOTE | 2016-11-29 10:05 | GIPROC ---
[facility] [address] [facility]. [facility] [place], [address] EGD PROCEDURE REPORT EXAM DATE: 11/29/2016 PATIENT NAME: Constantino Jacob MR #: [id number] BIRTHDATE: 1965 ATTENDING: Ravi Yeung MD ORDER #: [id number] SHOW HORSE DRIVER: Stefan Romano and Montse Machado STATUS: inpatient INDICATIONS: The patient is a 51 yr old male here for an EGD due to epigastric abdominal pain PROCEDURE PERFORMED: EGD, diagnostic MEDICATIONS: None and Per Anesthesia. TOPICAL ANESTHETIC: none CONSENT: The patient understands the risks and benefits of the procedure and understands that these risks include, but are not limited to: sedation, allergic reaction, infection, perforation and/or bleeding. Alternative means of evaluation and treatment include, among others: physical exam, x-rays, and/or surgical intervention. The patient elects to proceed with this endoscopic procedure. medical equipment was checked for proper function. Hand hygiene and appropriate measures for infection prevention was taken. After the risks, benefits and alternatives of the procedure were thoroughly explained, Informed consent was verified, confirmed and timeout was successfully executed by the treatment team. The patient was anesthetized with topical anesthesia and the Pentax [id number] endoscope was introduced through the mouth and advanced to the second portion of the duodenum. Retroflexion was performed and was normal The gastroscope was then slowly withdrawn and removed. ESOPHAGUS: The esophagus was otherwise normal. STOMACH: The stomach otherwise appeared normal. DUODENUM: The duodenal mucosa appeared normal in the bulb and second portion of the duodenum. ADVERSE EVENTS: There were no complications. IMPRESSIONS: 1. The esophagus was otherwise normal 2. The stomach otherwise appeared normal 3. Normal duodenal mucosa in the bulb and second portion of the duodenum 4. Retroflexion was performed and was normal RECOMMENDATIONS: No treatment PATIENT CONDITION: stable DISPOSITION: Observation REPEAT EXAM: Return as needed for EGD Ravi Yeung MD eSigned: Ravi Yeung MD 11/29/2016 10:05 AM cc:
[2016-11-29] MEDS ORDERED: DO NOT ADM ANY ANTICOAGULANT DRUGS PRN (11:00)
[2016-11-29] MEDS ORDERED: methylPREDNISolone SOD SUCC 125 MG/2 ML VIAL IV PUSH ONE (12:15)
--- NOTE | 2016-11-29 12:29 | HHI.PR ---
Subjective Remarks Follow for abdominal pain. Patient had EGD done this morning which was normal. He continues to say that abdominal pain is intermittent and sharp. Deny nausea / vomiting. Patient seems to be more concerned about his chronic left lower gluteal pain. He is asking to increase his Jalyn to 10 mg. He stated that the Flexeril did help and wants me to increased frequency. Otherwise he has no complaints. Patient remains afebrile. Objective Vitals Vital Signs Date Time Temp Pulse Resp B/P Pulse Ox O2 Delivery O2 Flow Rate FiO2 11/29/16 10:25 84 18 140/80 99 11/29/16 10:15 84 18 128/79 99 11/29/16 10:06 97.7 84 18 127/79 99 11/29/16 09:30 98.6 92 16 166/90 96 11/29/16 08:00 96.7 85 18 167/98 96 11/29/16 04:00 94.1 94 18 136/78 95 11/29/16 00:00 98.1 91 20 141/68 96 11/28/16 20:00 98.2 94 24 164/92 93 11/28/16 14:45 96.6 87 19 135/88 98 I/O 11/28/16 11/28/16 11/28/16 11/29/16 11/29/16 11/29/16 07:00 15:00 23:00 07:00 15:00 23:00 Intake Total 720 ml 720 ml 3850 ml 450 ml Output Total 2400 ml 720 ml Balance -1680 ml 0 ml 3850 ml 450 ml Intake Oral 720 ml 720 ml IV Total 3850 ml Other 450 ml Output Urine Total 2400 ml 720 ml Result Diagram: 11/29/16 0652 11/29/16 0652 Objective Remarks GENERAL: in NAD CARDIOVASCULAR: Regular rate and rhythm without murmurs, gallops, or rubs. RESPIRATORY: Breath sounds equal bilaterally. No accessory muscle use. GASTROINTESTINAL: Abdomen soft, non-tender, nondistended. MUSCULOSKELETAL: No cyanosis, or edema. Right upper gluteal area with mild muscle spasms. local positive tennis palpation.. No tenderness to palpation of his spinous process during examination. 5 out of 5 lower extreme E strength. BACK: Nontender without obvious deformity. No CVA tenderness. Medications and IVs Current Medications Morphine Sulfate (Morphine Inj) 4 mg ONCE ONCE IV PUSH Last administered on 23:47; Start 11/26/16 at 23:30; Stop 11/26/16 at 23:31; Status DC Ondansetron HCl (Zofran Inj) 4 mg ONCE ONCE IVP Last administered on 11/26/16 23:48; Start 11/26/16 at 23:30; Stop 11/26/16 at 23:31; Status DC Pantoprazole Sodium 40 mg 40 mg ONCE ONCE IVP Last administered on 11/26/16 23 :48; Start 11/26/16 at 23:30; Stop 11/26/16 at 23:31; Status DC Sodium Chloride (NS 1000 ml Inj) 1,000 ml @ 125 mls/hr Q8H IV Last administered on 11/26/16 23:47; Start 11/26/16 at 23:21; Stop 11/27/16 at 07:20; Status DC Morphine Sulfate (Morphine Inj) 4 mg ONCE ONCE IV PUSH Last administered on 02:08; Start 11/27/16 at 02:00; Stop 11/27/16 at 02:01; Status DC Dextrose (D50w (Vial) Inj) 50 ml UNSCH PRN IV HYPOGLYCEMIA-SEE COMMENTS; Start 11/27/16 at 02:15 Glucagon (Glucagon Inj) 1 mg UNSCH PRN OTHER HYPOGLYCEMIA-SEE COMMENTS; Start 11/27/16 at 02:15 Insulin Aspart 1 1 ACHS SLIDING SCALE SQ Last administered on 11/28/16 18:37; Start 11/27/16 at 07:00 Sodium Chloride (NS 1000 ml Inj) 1,000 ml @ 100 mls/hr Q10H IV Last administered on 11/27/16 22:02; Start 11/27/16 at 02:02 Sodium Chloride (NS Flush) 2 ml UNSCH PRN IV FLUSH FLUSH AFTER USING IV ACCESS Last administered on 11/28/16 22:36; Start 11/27/16 at 02:15 Sodium Chloride (NS Flush) 2 ml BID IV FLUSH ; Start 11/27/16 at 09:00 Ondansetron HCl (Zofran Inj) 4 mg Q6H PRN IVP NAUSEA OR VOMITING; Start at 02:15 Acetaminophen (Tylenol) 650 mg Q6H PRN PO FEVER; Start 11/27/16 at 02:15 Morphine Sulfate (Morphine Inj) 2 mg Q3H PRN IV Pain 6-10 Last administered on 11/29/16 11:10; Start 11/27/16 at 02:15 Oxycodone HCl (Roxicodone) 5 mg Q4H PRN PO PAIN SCALE 3 TO 5 Last administered on 11/29/16 09:09; Start 11/27/16 at 02:15 Senna/Docusate Sodium (Melodie-Colace) 1 tab BID PO Last administered on 11/29/16 08:52; Start 11/27/16 at 09:00 Magnesium Hydroxide (Milk Of Magnesia Liq) 30 ml Q12H PRN PO MILD - MODERATE CONSTIPATION; Start 11/27/16 at 02:15 Sennosides (Senokot) 17.2 mg Q12H PRN PO MODERATE - SEVERE CONSTIPATION; Start 11/27/16 at 02:15 Bisacodyl (Dulcolax Supp) 10 mg DAILY PRN RECTAL SEVERE CONSITIPATION; Start at 02:15 Lactulose (Lactulose Liq) 30 ml DAILY PRN PO SEVERE CONSITIPATION Last administered on 11/28/16 07:58; Start 11/27/16 at 02:15 Pantoprazole Sodium (Protonix Inj) 40 mg Q12H IV PUSH Last administered on 08:52; Start 11/27/16 at 09:00 Cyclobenzaprine HCl (Flexeril) 5 mg Q8H PRN PO SPASM Last administered on 22:12; Start 11/27/16 at 02:15; Stop 11/28/16 at 10:03; Status DC Insulin Detemir (Levemir Inj) 25 units BID SQ Last administered on 11/28/16 07: 49; Start 11/27/16 at 09:00 Pregabalin (Lyrica) 100 mg BID PO Last administered on 11/29/16 08:52; Start at 09:00 Iohexol (Omnipaque 350 Inj) 100 ml STK-MED ONCE IV Last administered on 02:46; Start 11/27/16 at 02:46; Stop 11/27/16 at 02:47; Status DC Menthol/Methyl Salicylate (Kun Falcon Oint) 1 applic UNSCH PRN TOPICAL low back pain; Start 11/27/16 at 14:15 Lidocaine HCl (Lidoderm 5% Patch.12 Hr) 1 patch DAILY T-DERMAL Last administered on 11/29/16 08:51; Start 11/28/16 at 10:00 Cyclobenzaprine HCl (Flexeril) 10 mg Q8HR PO Last administered on 11/29/16 05: 31; Start 11/28/16 at 10:15 Propofol (Diprivan 200 Mg/20 ml Inj) 200 mg STK-MED ONCE IV PUSH ; Start at 10:04; Stop 11/29/16 at 10:19; Status DC Miscellaneous Information ALL NURSING DEPARTME... UNSCH PRN .XX SEE LABEL COMMENTS; Start 11/29/16 at 11:00; Stop 11/30/16 at 10:59 Oxycodone HCl (Roxicodone) 10 mg Q4H PRN PO pain 6-10; Start 11/29/16 at 12:00 Methylprednisolone Sodium Succinate (SoluMEDROL INJ) 60 mg ONCE ONCE IV PUSH ; Start 11/29/16 at 12:15; Stop 11/29/16 at 12:16; Status DC A/P Problem List: (1) Pancreatitis ICD Code: K85.9 Status: Acute (2) Dehydration ICD Code: E86.0 Status: Chronic (3) DM (diabetes mellitus) ICD Code: E11.9 Status: Chronic Assessment and Plan Patient is a 51 yo M, hx of recurrent pancreatitis, readmitted to the hospital on 11/26 with significant abdominal pain, found to have elevated lipase suggestive of pancreatitis. Pancreatitis: Recurrent. Recent admit 11/18-11/25/16 for same reason, CT Abd/ Pelvis 11/18/16 w/ evidence of pancreatitis, s/p eval by Dr. Yeung, MRCP w/ pancreatitis at the pancreatic head level, no ductal dilatation, images reviewed by me. Lipase 210 on 11/20/16, down from 2300. Lipase 2561 on admission. LFTs unchanged. Total Bili normal. Repeat CT abdomen showing no change in acute pancreatitis. Lipid Profile 10/2016 unremarkable. Protonix. Clear Liquids. -Consult GI for further evaluation. -IV fluids -Oxycodone 5 mg by mouth every 4 hours when necessary pain 35. Will add oxycodone 10 mg for pain score 6 of 10. -Only give IV morphine if all medication does not work. -Protonix 40 mg IV every 12 -Lactulose 30 ML by mouth daily -Zofran prn -Patient had EGD done which was relatively normal. Per GI continue to observe. DM. Serum glucose 270 on admission, 105 this morning. -Hgb A1c 12.5 on 11/19 -Levemir 25 mg twice a day - Sliding scale w/ Accu-Cheks. Diabetic Neuropathy - Resume home Lyrica. Gluteal pain -This actually seems to be exacerbated more due to muscle spasms. Improved with Lidoderm the patient stated that still under control. Will increase oxycodone. with current dose of Flexeril. Will give 1 dose of Solu-Medrol to see if this helps with pain. DVT Prophylaxis: SCD/teds. Discharge Planning Per GI wants to continue to observe patient hospital. Problem Qualifiers (1) DM (diabetes mellitus): Qualified Code: E11.9 - Type 2 diabetes mellitus without complication, with long-term current use of insulin Shraddha Covington MD Nov 29, 2016 12:29
[2016-11-29] MEDS: SODIUM CHLOR 0.9% 1000 ML INJ 1,000 ML IV SCH ×2 (14:02→15:41)
[2016-11-30] MEDS: MORPHINE SULFATE 4 MG/ML INJ IV PRN ×3 (00:42→12:17)
[2016-11-30] MEDS: SODIUM CHLORIDE 0.9% FLUSH 10 ML FLUSH IV FLUSH PRN (06:08)
[2016-11-30] MEDS: INSULIN ASPART SUPPLEMENTAL SCALE SQ SCH ×2 (06:18→11:00)
[2016-11-30] MEDS: CYCLOBENZAPRINE HCL 10 MG TAB PO SCH ×2 (06:24→12:16)
[2016-11-30] MEDS: INSULIN DETEMIR 100 UNITS/ML VIAL SQ SCH (08:03)
[2016-11-30] MEDS: PREGABALIN 100 MG CAP PO SCH (08:06)
[2016-11-30] MEDS: DOCUSATE SODIUM 50 MG/SENNA 8.6 MG TAB PO SCH (08:06)
[2016-11-30] MEDS: PANTOPRAZOLE SODIUM 40 MG VIAL IV PUSH SCH (08:06)
[2016-11-30] MEDS: LIDOCAINE HCL 5% PATCH T-DERMAL SCH (08:07)
[2016-11-30 08:33] VITALS: BP 155/89; PULSE 92; RESP 18; TEMP 98.2; O2SAT 98
[2016-11-30] MEDS: SODIUM CHLORIDE 0.9% FLUSH 10 ML FLUSH IV FLUSH SCH (08:33)
[2016-11-30 09:09] LABS: MEAN CELL VOLUME 84.5 FL (80.0-100.0); MEAN CORPUSCULAR HEMOGLOBIN 29.4 PG (27.0-34.0); MEAN CORPUSCULAR HGB CONC 34.8 % (32.0-36.0); PLATELET COUNT 248 TH/MM3 (150-450); RED BLOOD COUNT 4.73 MIL/MM3 (4.50-5.90); REVIEW FLAG FINAL; WHITE BLOOD COUNT 7.5 TH/MM3 (4.0-11.0)
[2016-11-30 09:33] LABS: POTASSIUM 3.9 MEQ/L (3.5-5.1)
[2016-11-30] MEDS: SODIUM CHLOR 0.9% 1000 ML INJ 1,000 ML IV SCH (10:02)
--- NOTE | 2016-11-30 10:10 | HHI.PR ---
Subjective Remarks Follow-up for abdominal and gluteal pain. Patient found sitting very comfortably in his chair. He stated that he continues to have gluteal pain but this has improved. Denies abdominal pain, nausea, or vomiting. Patient is tolerating oral intake. Deny any GI bleed. Objective Vitals Vital Signs Date Time Temp Pulse Resp B/P Pulse Ox O2 Delivery O2 Flow Rate FiO2 11/30/16 09:08 18 11/30/16 09:08 18 11/30/16 08:33 98.2 92 18 155/89 98 11/29/16 20:00 98.5 109 19 140/92 98 11/29/16 16:00 97.3 89 18 155/91 98 11/29/16 12:00 97.1 82 18 156/97 99 11/29/16 10:25 84 18 140/80 99 11/29/16 10:15 84 18 128/79 99 I/O 11/29/16 11/29/16 11/29/16 11/30/16 11/30/16 11/30/16 07:00 15:00 23:00 07:00 15:00 23:00 Intake Total 2850 ml 730 ml 600 ml Output Total 700 ml 800 ml Balance 2150 ml 730 ml -200 ml Intake Oral 2400 ml 600 ml IV Total 730 ml Other 450 ml Output Urine Total 700 ml 800 ml # Voids 5 # Bowel Movements 0 0 Result Diagram: 11/30/16 0825 11/30/16 0825 Objective Remarks GENERAL: in NAD CARDIOVASCULAR: Regular rate and rhythm without murmurs, gallops, or rubs. RESPIRATORY: Breath sounds equal bilaterally. No accessory muscle use. GASTROINTESTINAL: Abdomen soft, non-tender, nondistended. MUSCULOSKELETAL: No cyanosis, or edema. Right upper gluteal area with mild muscle spasms. local tenderness to palpation.. No tenderness to palpation of his spinous process during examination. 5 out of 5 lower extreme E strength. BACK: Nontender without obvious deformity. No CVA tenderness. Medications and IVs Current Medications Morphine Sulfate (Morphine Inj) 4 mg ONCE ONCE IV PUSH Last administered on t 23:47; Start 11/26/16 at 23:30; Stop 11/26/16 at 23:31; Status DC Ondansetron HCl (Zofran Inj) 4 mg ONCE ONCE IVP Last administered on 11/26/16 23:48; Start 11/26/16 at 23:30; Stop 11/26/16 at 23:31; Status DC Pantoprazole Sodium 40 mg 40 mg ONCE ONCE IVP Last administered on 11/26/16 23 :48; Start 11/26/16 at 23:30; Stop 11/26/16 at 23:31; Status DC Sodium Chloride (NS 1000 ml Inj) 1,000 ml @ 125 mls/hr Q8H IV Last administered on 11/26/16 23:47; Start 11/26/16 at 23:21; Stop 11/27/16 at 07:20; Status DC Morphine Sulfate (Morphine Inj) 4 mg ONCE ONCE IV PUSH Last administered on 02:08; Start 11/27/16 at 02:00; Stop 11/27/16 at 02:01; Status DC Dextrose (D50w (Vial) Inj) 50 ml UNSCH PRN IV HYPOGLYCEMIA-SEE COMMENTS; Start 11/27/16 at 02:15 Glucagon (Glucagon Inj) 1 mg UNSCH PRN OTHER HYPOGLYCEMIA-SEE COMMENTS; Start 11/27/16 at 02:15 Insulin Aspart 1 1 ACHS SLIDING SCALE SQ Last administered on 11/30/16 06:18; Start 11/27/16 at 07:00 Sodium Chloride (NS 1000 ml Inj) 1,000 ml @ 100 mls/hr Q10H IV Last administered on 11/30/16 10:02; Start 11/27/16 at 02:02 Sodium Chloride (NS Flush) 2 ml UNSCH PRN IV FLUSH FLUSH AFTER USING IV ACCESS Last administered on 11/30/16 06:08; Start 11/27/16 at 02:15 Sodium Chloride (NS Flush) 2 ml BID IV FLUSH Last administered on 11/29/16 21: 35; Start 11/27/16 at 09:00 Ondansetron HCl (Zofran Inj) 4 mg Q6H PRN IVP NAUSEA OR VOMITING; Start at 02:15 Acetaminophen (Tylenol) 650 mg Q6H PRN PO FEVER; Start 11/27/16 at 02:15 Morphine Sulfate (Morphine Inj) 2 mg Q3H PRN IV Pain 6-10 Last administered on 11/30/16 06:08; Start 11/27/16 at 02:15 Oxycodone HCl (Roxicodone) 5 mg Q4H PRN PO PAIN SCALE 3 TO 5 Last administered on 11/29/16 09:09; Start 11/27/16 at 02:15 Senna/Docusate Sodium (Melodie-Colace) 1 tab BID PO Last administered on 11/30/16 08:06; Start 11/27/16 at 09:00 Magnesium Hydroxide (Milk Of Magnesia Liq) 30 ml Q12H PRN PO MILD - MODERATE CONSTIPATION; Start 11/27/16 at 02:15 Sennosides (Senokot) 17.2 mg Q12H PRN PO MODERATE - SEVERE CONSTIPATION; Start 11/27/16 at 02:15 Bisacodyl (Dulcolax Supp) 10 mg DAILY PRN RECTAL SEVERE CONSITIPATION; Start at 02:15 Lactulose (Lactulose Liq) 30 ml DAILY PRN PO SEVERE CONSITIPATION Last administered on 11/28/16 07:58; Start 11/27/16 at 02:15 Pantoprazole Sodium (Protonix Inj) 40 mg Q12H IV PUSH Last administered on 08:06; Start 11/27/16 at 09:00 Cyclobenzaprine HCl (Flexeril) 5 mg Q8H PRN PO SPASM Last administered on 22:12; Start 11/27/16 at 02:15; Stop 11/28/16 at 10:03; Status DC Insulin Detemir (Levemir Inj) 25 units BID SQ Last administered on 11/30/16 08: 03; Start 11/27/16 at 09:00 Pregabalin (Lyrica) 100 mg BID PO Last administered on 11/30/16 08:06; Start at 09:00 Iohexol (Omnipaque 350 Inj) 100 ml STK-MED ONCE IV Last administered on 02:46; Start 11/27/16 at 02:46; Stop 11/27/16 at 02:47; Status DC Menthol/Methyl Salicylate (Kun Falcon Oint) 1 applic UNSCH PRN TOPICAL low back pain; Start 11/27/16 at 14:15 Lidocaine HCl (Lidoderm 5% Patch.12 Hr) 1 patch DAILY T-DERMAL Last administered on 11/30/16 08:07; Start 11/28/16 at 10:00 Cyclobenzaprine HCl (Flexeril) 10 mg Q8HR PO Last administered on 11/30/16 06: 24; Start 11/28/16 at 10:15 Propofol (Diprivan 200 Mg/20 ml Inj) 200 mg STK-MED ONCE IV PUSH ; Start at 10:04; Stop 11/29/16 at 10:19; Status DC Miscellaneous Information ALL NURSING DEPARTME... UNSCH PRN .XX SEE LABEL COMMENTS; Start 11/29/16 at 11:00; Stop 11/30/16 at 10:59 Oxycodone HCl (Roxicodone) 10 mg Q4H PRN PO pain 6-10 Last administered on 08:06; Start 11/29/16 at 12:00 Methylprednisolone Sodium Succinate (SoluMEDROL INJ) 60 mg ONCE ONCE IV PUSH Last administered on 11/29/16 12:25; Start 11/29/16 at 12:15; Stop 11/29/16 at 12: 16; Status DC A/P Problem List: (1) Pancreatitis ICD Code: K85.9 Status: Acute (2) Dehydration ICD Code: E86.0 Status: Chronic (3) DM (diabetes mellitus) ICD Code: E11.9 Status: Chronic Assessment and Plan Patient is a 51 yo M, hx of recurrent pancreatitis, readmitted to the hospital on 11/26 with significant abdominal pain, found to have elevated lipase suggestive of pancreatitis. Pancreatitis: Recurrent. Recent admit 11/18-11/25/16 for same reason, CT Abd/ Pelvis 11/18/16 w/ evidence of pancreatitis, s/p eval by Dr. Yeung, MRCP w/ pancreatitis at the pancreatic head level, no ductal dilatation, images reviewed by me. Lipase 210 on 11/20/16, down from 2300. Lipase 2561 on admission. LFTs unchanged. Total Bili normal. Repeat CT abdomen showing no change in acute pancreatitis. Lipid Profile 10/2016 unremarkable. Protonix. Clear Liquids. -GI was consulted. He seemed to resolve. -IV fluids -Patient was put on part Protonix by GI but EGD was relatively normal. Unlikely he would need Protonix. -Lactulose 30 ML by mouth daily -Zofran prn -Per GI observe. Patient seems medically stable. Dealt with patient's nurse to put a call out to GI to see patient is clear for discharge. DM. Serum glucose 270 on admission, 105 this morning. -Hgb A1c 12.5 on 11/19 -Levemir 25 mg twice a day - Sliding scale w/ Accu-Cheks. Diabetic Neuropathy - Resume home Lyrica. Gluteal pain -This actually seems to be exacerbated more due to muscle spasms. Improved with Lidoderm the patient stated that still under control. On Flexeril and oxycodone. Patient received 1 dose of Solu-Medrol. Will give him another dose. DVT Prophylaxis: SCD/teds. Discharge Planning Patient is medically cleared and stable for discharge pending GI final recommendation. The patient stated that he was told that he was given a have a colonoscopy done on . Dealt with patient's nurse to get clearance from GI. Problem Qualifiers (1) DM (diabetes mellitus): Qualified Code: E11.9 - Type 2 diabetes mellitus without complication, with long-term current use of insulin Shraddha Covington MD Nov 30, 2016 10:10
[2016-11-30] MEDS ORDERED: methylPREDNISolone SOD SUCC 40 MG/1 ML VIAL IV PUSH ONE (10:15)
[2016-11-30 12:15] VITALS: BP 154/87; PULSE 79; RESP 17; TEMP 97.1; O2SAT 100
[2016-11-30 12:23] VITALS: RESP 18
[2016-11-30] MEDS ORDERED: LIDO5DIS35 T-DERMAL (13:01)
[2016-11-30] MEDS ORDERED: oxyCODONE PO (13:01)
[2016-11-30] MEDS ORDERED: SENN1TAB PO (13:01)
[2016-11-30] MEDS ORDERED: Cyclobenzaprine PO (13:01)
--- NOTE | 2016-11-30 13:02 | HHI.DCPOC ---
Discharge Care Plan Diagnosis: (1) Acute pancreatitis Goals to Promote Your Health * To prevent worsening of your condition and complications * To maintain your health at the optimal level Directions to Meet Your Goals Take your medications as prescribed Follow your dietary instruction Follow activity as directed Keep your appointments as scheduled Take your immunizations and boosters as scheduled If your symptoms worsen call your PCP, if no PCP go to Urgent Care Center or Emergency Room Smoking is Dangerous to Your Health. Avoid second hand smoke Call the 24-hour hour crisis hotline for domestic abuse at Shraddha Covington MD Nov 30, 2016 13:02
--- NOTE | 2016-11-30 13:02 | HHI.DS ---
Discharge Summary Admission Date Nov 27, 2016 at 01:58 Discharge Date: Nov 30, 2016 Admitting Diagnosis acute pancreatitis (1) Acute pancreatitis ICD Code: K85.90 Diagnosis: Principal (2) Dehydration ICD Code: E86.0 Diagnosis: Principal (3) DM (diabetes mellitus) ICD Code: E11.9 Diagnosis: Secondary (4) Chronic low back pain ICD Code: M54.5 Diagnosis: Secondary Procedures EGD done on which was normal. Brief History - From Admission This is a 51-year-old male with a PMH of Depression, HTN, DM and Diabetic Neuropathy who presented here with complaints of epigastric pain addition to nausea and vomiting starting yesterday afternoon after being discharged from the hospital. Recently admitted from 11/18-11/25/16 for Acute Pancreatitis, s/p eval by Dr. Yeung. CT Abd/Pelvis 11/18/16 w/ findings suspicious for pancreatitis, MRCP w/ acute pancreatitis at the pancreatic head level, no ductal dilatation. Lipase 2308 on admission, Lipase 210 on 11/20/16. Per patient, reports acute recurrence of abdominal pain w/ nausea/vomiting following discharge. Denies fever, chills or diarrhea. On arrival, BP 146/77, HR 100, O2 sat 97% on RA, Afebrile. CBC unremarkable. Chemistry essentially unremarkable except for BUN 19, previously 5 on 11/20/16. BS 270. Lipase 2561. CT Abd/Pelvis pending. CBC/BMP: 11/30/16 0825 11/30/16 0825 Significant Findings Laboratory Tests Test 11/28/16 11/29/16 11/30/16 07:29 06:52 08:25 Monocytes (%) (Auto) 13.7 % (0.0-8.0) Albumin 2.9 GM/DL 2.9 GM/DL (3.4-5.0) (3.4-5.0) Lipase 668 U/L (73-393) Blood Urea Nitrogen 6 MG/DL (7-18) Random Glucose 246 MG/DL 285 MG/DL (74-106) (74-106) Calcium Level 8.0 MG/DL (8.5-10.1) Alkaline Phosphatase 118 U/L (45-117) Imaging Last Impressions Abdomen/Pelvis CT 11/27/16 0157 Signed Impressions: Service Date/Time: Tuesday, November 27, 2016 02:44 - CONCLUSION: No change in acute pancreatitis, however bibasilar infiltrates have developed not present previously. Julisa Ortez MD PE at Discharge GENERAL: in NAD CARDIOVASCULAR: Regular rate and rhythm without murmurs, gallops, or rubs. RESPIRATORY: Breath sounds equal bilaterally. No accessory muscle use. GASTROINTESTINAL: Abdomen soft, non-tender, nondistended. MUSCULOSKELETAL: No cyanosis, or edema. Right upper gluteal area with mild muscle spasms. local tenderness to palpation.. No tenderness to palpation of his spinous process during examination. 5 out of 5 lower extreme E strength. BACK: Nontender without obvious deformity. No CVA tenderness. Pt update on day of discharge GI was notified by nurse and per GI patient is stable for discharge. Hospital Course Patient is a 51 yo M, hx of recurrent pancreatitis, readmitted to the hospital on 11/26 with significant abdominal pain, found to have elevated lipase suggestive of pancreatitis. Pancreatitis: Recurrent. Recent admit 11/18-11/25/16 for same reason, CT Abd/ Pelvis 11/18/16 w/ evidence of pancreatitis, s/p eval by Dr. Yeung, MRCP w/ pancreatitis at the pancreatic head level, no ductal dilatation, images reviewed by me. Lipase 210 on 11/20/16, down from 2300. Lipase 2561 on admission. LFTs unchanged. Total Bili normal. Repeat CT abdomen showing no change in acute pancreatitis. Lipid Profile 10/2016 unremarkable. Protonix. Clear Liquids. -GI was consulted. Symptoms resolved quickly with supportive care. -Empirically he was put on Protonix. EGD done on 11/29/2016 was normal so Protonix was discontinued. -Patient's symptoms slowly resolved during the hospital course. DM. Serum glucose 270 on admission, 105 this morning. -Hgb A1c 12.5 on 11/19 -Levemir 25 mg twice a day - Sliding scale w/ Accu-Cheks. Diabetic Neuropathy - Resume home Lyrica. Gluteal pain -This actually seems to be exacerbated more due to muscle spasms. He was put on higher dose of Flexeril and given a Lidoderm patch which improved his pain. Oxycodone was increased was also improved his pain. Patient was also given 2 doses of Solu-Medrol. -Patient was advised since this pain is chronic to follow-up with his primary care physician or in the pain clinic. Pt Condition on Discharge: Good Discharge Disposition: Discharge Home Discharge Time: <= 30 minutes Discharge Instructions DIET: Follow Instructions for: Diabetic Diet Activities you can perform: Regular-No Restrictions Other Activity Instructions: do not drive or operate heavy machinery is taking narcotics or pain medication. Follow up Referrals: PCP Follow-up - 1 Week New Medications: Lidocaine Patch 12 HR (Lidoderm Patch 12 HR) 5% Patch 1 PATCH T-DERMAL DAILY Pain Management #30 Ref 0 PATCH Sennosides-Docusate Sodium (Senna Plus 8.6-50 mg) 1 Tab Tab 1 TAB PO BID constipation #30 Ref 0 TAB ([Cyclobenzaprine]) 10 MG TAB 10 MG PO Q8HR spasm #21 Ref 0 TAB ([oxyCODONE]) 5 MG TAB 5 MG PO Q4H PRN pain #20 Ref 0 TAB Continued Medications: Insulin Aspart Inj (Novolog Inj) 100 Unit/Ml Inj 1 INJECTION SQ ACHS SLIDING SCALE Blood Sugar Management Days 30 INJECTION Insulin Detemir Inj (Levemir Inj) 1,000 unit/ 10 ML Vial 25 UNITS SQ BID Do not mix with any other Insulin. Blood Sugar Management Days 30 Ref 0 VIAL Pregabalin (Lyrica) 100 Mg Cap 100 MG PO BID Pain Management #60 Ref 0 CAP Discontinued Medications: Cyclobenzaprine (Flexeril) 10 Mg Tab 5 MG PO Q8H PRN SPASM Days 14 TAB Oxycodone-Acetaminophen (Oxycodone-Acetaminophen) 5-325 mg Tab 1 TAB PO Q6H PRN PAIN SCALE 1 TO 10 #20 TAB Shraddha Covington MD Nov 30, 2016 13:02
== END 2016-11-30 14:15 | disposition home or self-care (01) | DRG 440 ==
LOC: NEPE 23:07 → NEDA 11-27 01:58 → N05B 11-27 03:50
PROVIDERS: ADMIT Family Medicine; ATTEND Family Medicine
PROC: 0DJ08ZZ Inspection of Upper Intestinal Tract, Via Natural or Artificial Opening Endoscopic (ICD-10-PCS; principal; 2016-11-29 09:34)
DX: K85.90 Acute pancreatitis without necrosis or infection, unspecified (principal); E11.40 Type 2 diabetes mellitus with diabetic neuropathy, unspecified; I10 Essential (primary) hypertension; K21.9 Gastro-esophageal reflux disease without esophagitis; E86.0 Dehydration; G89.29 Other chronic pain; M54.5 Low back pain; M62.830 Muscle spasm of back; F17.290 Nicotine dependence, other tobacco product, uncomplicated; F20.9 Schizophrenia, unspecified; F32.9 Major depressive disorder, single episode, unspecified; Z79.4 Long term (current) use of insulin; Z88.5 Allergy status to narcotic agent; Z88.6 Allergy status to analgesic agent
CPT/HCPCS: 74177; 80048; 80053; 80076; 81001; 82948; 83690; 85025; 85027; 85610; 85730; 87641; 96361; 96374; 96375; C9113; J1815; J2270; J2405; J2920; J2930; J7030; Q9967

== ENCOUNTER 2017-01-24 10:28 | Emergency (ER) | payer OTHER ==
[~2017-01-24] VITALS: Ht 172.7 cm; Wt 108.0 kg
[~2017-01-24 10:28] MED LIST changes: -CYCL1TAB29 PO; +Cyclobenzaprine PO; +LIDO5DIS35 T-DERMAL; -OXYC1TAB63 PO; +SENN1TAB PO; +oxyCODONE PO
[2017-01-24 10:30] VITALS: BP 167/96; PULSE 104; RESP 16; TEMP 98.2; O2SAT 98
[2017-01-24] MEDS ORDERED: DEXAMETHASONE SOD PHOS 4 MG/ML VIAL IM ONE (11:00)
[2017-01-24] MEDS ORDERED: ORPHENADRINE INJ 60 MG/2 ML AMP IM ONE (11:00)
[2017-01-24] MEDS ORDERED: ROBA500T PO (11:06)
--- NOTE | 2017-01-24 11:09 | PD ---
HPI Chief Complaint: Back/ Neck Pain or Injury Time Seen by Provider: 11:00 Travel History International Travel<30 days: No Contact w/Intl Traveler<30days: No Traveled to known affect area: No History of Present Illness HPI 51-year-old male with history of chronic low back pain and sciatica. Patient reports he's had moderate to severe low back pain for the past year. He has been treated at multiple clinics. He presents today saying that his left sided sciatica pain is worse in the last 3 days. He is requesting Percocet for Roxicodone. He denies fever, chills, incontinence, saddle anesthesia, numbness/ tingling/weakness of the extremity. PFSH Past Medical History Anemia: Yes Arthritis: No Asthma: No Autoimmune Disease: No Blood Disorders: No Anxiety: No Depression: Yes Heart Rhythm Problems: No Cancer: No Cardiovascular Problems: Yes (HTN) High Cholesterol: No Chemotherapy: No Chest Pain: No Congestive Heart Failure: No COPD: No Cerebrovascular Accident: No Diabetes: Yes Diminished Hearing: No Endocrine: Yes Gastrointestinal Disorders: Yes ("FATTY PANCREAS") GERD: Yes Glaucoma: No Genitourinary: No Headaches: No Hepatitis: No Hypertension: Yes Immune Disorder: No Kidney Stones: No Musculoskeletal: Yes (STATES 4 BROKEN BONES IN LEFT KNEE) Neurologic: Yes (NEUROPATHY) Psychiatric: Yes Reproductive: No Respiratory: No Immunizations Current: Yes Migraines: No Myocardial Infarction: No Radiation Therapy: No Renal Failure: No Schizophrenia: Yes Seizures: No Sickle Cell Disease: No Sleep Apnea: No Thyroid Disease: No Ulcer: No Past Surgical History Abdominal Surgery: No AICD: No Appendectomy: No Arteriovenous Shunt: No Cardiac Surgery: No Cholecystectomy: Yes Ear Surgery: No Endocrine Surgery: No Eye Surgery: No Genitourinary Surgery: No Gynecologic Surgery: No Insulin Pump: No Joint Replacement: No Neurologic Surgery: No Oral Surgery: No Pacemaker: No Thoracic Surgery: No Other Surgery: Yes ( ) Social History Alcohol Use: No Tobacco Use: Yes (cigars) Substance Use: No Allergies-Medications (Allergen,Severity, Reaction): Coded Allergies: Darvocet-N 100 (Verified Allergy, Severe, STOMACH CRAMPS, 01/24/17) Motrin (Verified Adverse Reaction, Severe, 01/24/17) Ibuprofen (Verified Adverse Reaction, Mild, 01/24/17) *MDRO Multi-Drug Resistant Organism (Verified Adverse Reaction, Unknown, MRSA, 01/24/17) MRSA (wounds) - 01/02/07, 10/17/07, 10/22/08 Reported Meds & Prescriptions Reported Meds & Active Scripts Active [oxyCODONE] 5 MG Tab 5 Mg PO Q4H PRN Senna Plus 8.6-50 mg (Sennosides-Docusate Sodium) 1 Tab Tab 1 Tab PO BID Lidoderm Patch 12 HR (Lidocaine) 5% Patch 1 Patch T-DERMAL DAILY [Cyclobenzaprine] 10 MG Tab 10 Mg PO Q8HR Alcohol Prep Pads (Alcohol Swabs) 70 % Pad 1 Pad .ROUTE DIRECTED Insulin Syringe/U-100/1Ml 28G X 1/2" 1 ml (Insulin Syringe/Needle U-100) 1 Mis Mis 1 Ea .ROUTE DIRECTED Lancets 1 Mis Mis 1 Ea .ROUTE DIRECTED Blood Glucose Test Strips Strips Strip 1 Ea .ROUTE DIRECTED Blood Glucose Monitoring W/Device (Device) 1 Kit Kit 1 Kit .ROUTE DIRECTED Lyrica (Pregabalin) 100 Mg Cap 100 Mg PO BID Walker with Front Wheels (Device) 1 Mis Mis 1 Ea .ROUTE DIRECTED Novolog Inj (Insulin Aspart) 100 Unit/Ml Inj 1 Injection SQ ACHS SLIDING SCALE 30 Days Levemir Inj (Insulin Detemir) 1,000 unit/ 10 ML Vial 25 Units SQ BID 30 Days Do not mix with any other Insulin. Review of Systems Except as stated in HPI: all other systems reviewed are Neg General / Constitutional: No: Fever Eyes: No: Visual changes HENT: No: Headaches Cardiovascular: No: Chest Pain or Discomfort Respiratory: No: Shortness of Breath Gastrointestinal: No: Nausea, Vomiting, Diarrhea, Abdominal Pain, Hematemesis, Hematochezia, Constipation, Changes in Bowel Habits, Indigestion, Dysphagia, Loss of Appetite, Other Genitourinary: No: Dysuria Physical Exam Narrative GENERAL: Alert, well-appearing male no acute distress. Resting currently on stretcher. SKIN: Focused skin assessment warm/dry. HEAD: Atraumatic. Normocephalic. EYES: Pupils equal and round. No scleral icterus. No injection or drainage. ENT: No nasal bleeding or discharge. Mucous membranes pink and moist. NECK: Trachea midline. No JVD. CARDIOVASCULAR: Regular rate and rhythm. No murmur appreciated. RESPIRATORY: No accessory muscle use. Clear to auscultation. Breath sounds equal bilaterally. GASTROINTESTINAL: Abdomen soft, non-tender, nondistended. Hepatic and splenic margins not palpable. MUSCULOSKELETAL: No obvious deformities. No clubbing. No cyanosis. No edema. NEUROLOGICAL: Awake and alert. No obvious cranial nerve deficits. Motor grossly within normal limits. Normal speech. 5 out of 5 strength in lower extremity. Normal sensation. Dorsiflexion and plantar flexion intact. BACK: No CVA tenderness. No rash. No point tenderness on palpation of the spine. ttp Left-sided paraspinous musculature PSYCHIATRIC: Appropriate mood and affect; insight and judgment normal. Data Data Last Documented VS Vital Signs Date Time Temp Pulse Resp B/P Pulse Ox O2 Delivery O2 Flow Rate FiO2 01/24/17 10:30 98.2 104 16 167/96 98 MDM Medical Decision Making Medical Screen Exam Complete: Yes Emergency Medical Condition: Yes Differential Diagnosis sciatica, lumbar strain, chronic low back pain, herniated disk Narrative Course 51-year-old male with history of chronic low back pain and sciatica. Patient reports he's had moderate to severe low back pain for the past year. He has been treated at multiple clinics. He presents today saying that his left sided sciatica pain is worse in the last 3 days. He is requesting Percocet for Roxicodone. He denies fever, chills, incontinence, saddle anesthesia, numbness/ tingling/weakness of the extremity. His physical exam is reassuring. He does have positive straight leg raise on the left side. No midline spine tenderness. Patient reports that he is allergic to Motrin and Toradol although the EMR show he has received injections of Toradol multiple times with the last 6 months. Patient will be treated with an injection of steroids and muscle relaxers. He is instructed to follow up with his PCP Diagnosis Primary Impression: Sciatica Qualified Code: M54.32 - Sciatica of left side Referrals: Primary Care Physician Additional Instructions: Take medications as prescribed. Follow-up with her primary care doctor. Avoid heavy lifting or shortness activity. Scripts Methocarbamol (Robaxin)500 Mg [id number] Mg PO TID PRN (MUSCLE SPASM) #12 TAB Prov:Janice Flores 01/24/17 Disposition: 01 DISCHARGE HOME Condition: Stable Janice Flores Jan 24, 2017 11:09
== END 2017-01-24 11:54 | disposition home or self-care (01) ==
LOC: NEPD 10:28
DX: M54.32 Sciatica, left side (principal); E11.9 Type 2 diabetes mellitus without complications; I10 Essential (primary) hypertension; Z72.0 Tobacco use; Z79.4 Long term (current) use of insulin; Z86.2 Personal history of diseases of the blood and blood-forming organs and certain disorders involving the immune mechanism; Z86.59 Personal history of other mental and behavioral disorders; Z86.79 Personal history of other diseases of the circulatory system; Z87.19 Personal history of other diseases of the digestive system; Z87.39 Personal history of other diseases of the musculoskeletal system and connective tissue; Z86.69 Personal history of other diseases of the nervous system and sense organs
CPT/HCPCS: 96372; 99284; J1100; J2360

== ENCOUNTER 2017-02-05 09:32 | Emergency (ER) | payer OTHER ==
[~2017-02-05] VITALS: Ht 172.7 cm; Wt 104.0 kg
[~2017-02-05 09:32] MED LIST changes: -ALCO1PAD; -BLOOD GLUCOSE M1 KIT; -BLOOD GLUCOSE T1 TES; -INSU1MIS; -LANCETS1 MI1; -LIDO5DIS35 T-DERMAL; +ROBA500T PO; -WALKER WHEELS/F1 MIS
[2017-02-05 09:36] VITALS: BP 148/96; PULSE 112; RESP 24; TEMP 98.8; O2SAT 98
--- NOTE | 2017-02-05 10:16 | PD ---
HPI Chief Complaint: Psychiatric Symptoms Time Seen by Provider: 09:58 Travel History International Travel<30 days: No Contact w/Intl Traveler<30days: No Traveled to known affect area: No History of Present Illness HPI This is a 51-year-old male who presents to the emergency department with low back pain that he feels a stabbing in the middle of his low back, constant, severe, making it difficult for him to walk due to pain. He denies any problems with bowel or bladder incontinence. He says is been followed Dr. Mccracken for this pain but is not getting any relief. We prescribed him steroids recently and they are not helping. PFSH Past Medical History Hx Anticoagulant Therapy: No Anemia: Yes Arthritis: No Asthma: No Autoimmune Disease: No Blood Disorders: No Anxiety: No Depression: Yes Heart Rhythm Problems: No Cancer: No Cardiovascular Problems: No High Cholesterol: No Chemotherapy: No Chest Pain: No Congestive Heart Failure: No COPD: No Cerebrovascular Accident: No Diabetes: Yes Patient Takes Glucophage: Yes Diminished Hearing: No Endocrine: Yes Gastrointestinal Disorders: Yes ("FATTY PANCREAS" pancreatitis) GERD: Yes Glaucoma: No Genitourinary: No Headaches: No Hepatitis: No Hypertension: Yes Immune Disorder: No Kidney Stones: No Musculoskeletal: Yes (STATES 4 BROKEN BONES IN LEFT KNEE) Neurologic: Yes (NEUROPATHY) Psychiatric: Yes Reproductive: No Respiratory: No Immunizations Current: Yes Migraines: No Myocardial Infarction: No Radiation Therapy: No Renal Failure: No Schizophrenia: Yes Seizures: No Sickle Cell Disease: No Sleep Apnea: No Thyroid Disease: No Ulcer: No Past Surgical History Abdominal Surgery: No AICD: No Appendectomy: No Arteriovenous Shunt: No Cardiac Surgery: No Cholecystectomy: Yes Ear Surgery: No Endocrine Surgery: No Eye Surgery: No Genitourinary Surgery: No Gynecologic Surgery: No Insulin Pump: No Joint Replacement: No Neurologic Surgery: No Oral Surgery: No Pacemaker: No Thoracic Surgery: No Other Surgery: Yes ( ) Social History Alcohol Use: No Tobacco Use: Yes (cigars) Substance Use: No Allergies-Medications (Allergen,Severity, Reaction): Coded Allergies: Darvocet-N 100 (Verified Allergy, Severe, STOMACH CRAMPS, 02/05/17) Motrin (Verified Adverse Reaction, Severe, 02/05/17) Ibuprofen (Verified Adverse Reaction, Mild, 02/05/17) *MDRO Multi-Drug Resistant Organism (Verified Adverse Reaction, Unknown, MRSA, 02/05/17) MRSA (wounds) - 01/02/07, 10/17/07, 10/22/08 Reported Meds & Prescriptions Reported Meds & Active Scripts Active Robaxin (Methocarbamol) 500 Mg Tab 500 Mg PO TID PRN [oxyCODONE] 5 MG Tab 5 Mg PO Q4H PRN Senna Plus 8.6-50 mg (Sennosides-Docusate Sodium) 1 Tab Tab 1 Tab PO BID [Cyclobenzaprine] 10 MG Tab 10 Mg PO Q8HR Lyrica (Pregabalin) 100 Mg Cap 100 Mg PO BID Novolog Inj (Insulin Aspart) 100 Unit/Ml Inj 1 Injection SQ ACHS SLIDING SCALE 30 Days Levemir Inj (Insulin Detemir) 1,000 unit/ 10 ML Vial 25 Units SQ BID 30 Days Do not mix with any other Insulin. Review of Systems Except as stated in HPI: all other systems reviewed are Neg Physical Exam Narrative GENERAL: Tearful SKIN: Focused skin assessment warm and dry. HEAD: Atraumatic. Normocephalic. EYES: Pupils equal and round. No injection or drainage. ENT: Moist mucous membranes NECK: Trachea midline. CARDIOVASCULAR: Regular rate and rhythm. No murmur appreciated. RESPIRATORY: Clear to auscultation. Breath sounds equal bilaterally. GASTROINTESTINAL: Abdomen soft, non-tender, nondistended. MUSCULOSKELETAL: No obvious deformities. NEUROLOGICAL: Awake and alert. No obvious cranial nerve deficits. 5 out of 5 strength in the bilateral lower extremities with intact sensation. PSYCHIATRIC: Makes poor eye contact, denies suicidal ideation Data Data Last Documented VS Vital Signs Date Time Temp Pulse Resp B/P Pulse Ox O2 Delivery O2 Flow Rate FiO2 02/05/17 09:36 98.8 112 24 148/96 98 Room Air MDM Medical Decision Making Medical Screen Exam Complete: Yes Emergency Medical Condition: Yes Interpretation(s) Patient has been seen in the emergency department for chronic back pain since 2003 and was receiving Lortab at that time for his pain. Differential Diagnosis Sciatica, herniated disc, cauda equina syndrome, epidural abscess, drug seeking behavior Narrative Course This is a 51-year-old male who presents to the emergency Department tearful, requesting pain medicine for his back pain. I had a long conversation with the patient and offered him an MRI. I did express to him that I didn't think opiates were good medication for his pain as it is chronic and he's been having at for at least 13 years at this point based on our ER notes. He says he doesn' t think he needs an MRI. He says this is the same pain he has been having an it 's just his sciatica and he needs something to alleviate the pain. He denies any fevers or chills and denies any IV drug use. I doubt an epidural abscess in the absence of reported IV drug use. Pt. will be treated with Toradol and Norflex. Diagnosis Primary Impression: Chronic back pain Qualified Code: M54.42 - Chronic midline low back pain with left-sided sciatica Patient Instructions: General Instructions Additional Instructions: If you develop weakness of your legs, difficulty walking, numbness of your legs or your genital or rectal area, loss of your bowel or bladder, or difficulty urinating return to the emergency department immediately. Followup with your primary care physician in one week if your symptoms have not improved. Med/Other Pt SpecificInfo: Prescription(s) given Scripts Pregabalin (Lyrica)100 Mg [id number] Mg PO BID #60 CAP Ref 0 Prov:Sierra Koo MD 02/05/17 Cyclobenzaprine (Flexeril)10 Mg Tab10 Mg PO TID #10 TAB Ref 0 Prov:Sierra Koo MD 02/05/17 Disposition: 01 DISCHARGE HOME Condition: Stable Sierra Koo MD Feb 05, 2017 10:16
[2017-02-05] MEDS ORDERED: CYCL1TAB29 PO (10:22)
[2017-02-05] MEDS ORDERED: LYRI100C PO (10:22)
[2017-02-05] MEDS ORDERED: KETOROLAC TROMETHAMINE 60 MG/2 ML (IM) VIAL IM ONE (10:30)
[2017-02-05] MEDS ORDERED: ORPHENADRINE INJ 60 MG/2 ML AMP IM ONE (10:30)
[2017-02-05] MEDS ORDERED: NAPR500T PO (10:40)
== END 2017-02-05 10:53 | disposition home or self-care (01) ==
LOC: NEPD 09:32
DX: M54.9 Dorsalgia, unspecified (principal); G89.29 Other chronic pain; D64.9 Anemia, unspecified; K85.90 Acute pancreatitis without necrosis or infection, unspecified; K21.9 Gastro-esophageal reflux disease without esophagitis; I10 Essential (primary) hypertension; E11.40 Type 2 diabetes mellitus with diabetic neuropathy, unspecified; F20.9 Schizophrenia, unspecified; Z79.4 Long term (current) use of insulin
CPT/HCPCS: 96372; 99284; J1885; J2360

== ENCOUNTER 2017-02-10 01:04 | Emergency (ER) | payer OTHER ==
[~2017-02-10 01:04] MED LIST changes: +CYCL1TAB29 PO; +NAPR500T PO
[2017-02-10 01:06] VITALS: BP 184/112; PULSE 135; RESP 16; TEMP 99.3; O2SAT 96
[2017-02-10] MEDS ORDERED: GLIP5TAB8 PO (01:25)
[2017-02-10] MEDS ORDERED: LYRI50CA PO (01:25)
[2017-02-10] MEDS ORDERED: METF1000 PO (01:25)
[2017-02-10] MEDS ORDERED: SODIUM CHLORIDE 0.9% FLUSH 10 ML FLUSH IV FLUSH PRN (02:15)
[2017-02-10] MEDS ORDERED: SODIUM CHLOR 0.9% 1000 ML INJ 1,000 ML IV SCH (02:15)
[2017-02-10] MEDS ORDERED: PANTOPRAZOLE SODIUM 40 MG VIAL IVP ONE (02:15)
[2017-02-10] MEDS ORDERED: MORPHINE SULFATE 8 MG/ML INJ IV PUSH ONE (02:15)
[2017-02-10] MEDS ORDERED: ONDANSETRON HCL 4 MG/2 ML VIAL IVP ONE (02:15)
[2017-02-10 02:33] VITALS: O2SAT 98
--- NOTE | 2017-02-10 02:35 | PD ---
HPI Chief Complaint: GI Complaint Time Seen by Provider: 01:21 Travel History International Travel<30 days: No Contact w/Intl Traveler<30days: No Traveled to known affect area: No History of Present Illness HPI 51-year-old male came to the emergency room with history of abdominal pain. Patient says he has history of pancreatitis and has been drinking beer past 2 days. He seemed uncomfortable. Upon asking he pointed to his epigastric and left upper quadrant area. No history of nausea vomiting. No history of diarrhea. Patient was tachycardic in ER. He says he tried cocaine yesterday to see if that helps with this pain. No history of fever or chills. No aggravating or relieving factors currently for the pain. Pain is 10 out of 10 as per the patient. [facility] Past Medical History Narrative Medical List of his past medical, surgical, social and family history is reviewed from the nursing note. Hx Anticoagulant Therapy: No Anemia: Yes Arthritis: No Asthma: No Autoimmune Disease: No Blood Disorders: No Anxiety: No Depression: Yes Heart Rhythm Problems: No Cancer: No Cardiovascular Problems: No High Cholesterol: No Chemotherapy: No Chest Pain: No Congestive Heart Failure: No COPD: No Cerebrovascular Accident: No Diabetes: Yes Patient Takes Glucophage: Yes Diminished Hearing: No Endocrine: Yes Gastrointestinal Disorders: Yes ("FATTY PANCREAS" pancreatitis) GERD: Yes Glaucoma: No Genitourinary: No Headaches: No Hepatitis: No Hypertension: Yes Immune Disorder: No Kidney Stones: No Musculoskeletal: Yes (STATES 4 BROKEN BONES IN LEFT KNEE) Neurologic: Yes (NEUROPATHY) Psychiatric: Yes Reproductive: No Respiratory: No Immunizations Current: Yes Migraines: No Myocardial Infarction: No Radiation Therapy: No Renal Failure: No Schizophrenia: Yes Seizures: No Sickle Cell Disease: No Sleep Apnea: No Thyroid Disease: No Ulcer: No Past Surgical History Abdominal Surgery: No AICD: No Appendectomy: No Arteriovenous Shunt: No Cardiac Surgery: No Cholecystectomy: Yes Ear Surgery: No Endocrine Surgery: No Eye Surgery: No Genitourinary Surgery: No Gynecologic Surgery: No Insulin Pump: No Joint Replacement: No Neurologic Surgery: No Oral Surgery: No Pacemaker: No Thoracic Surgery: No Social History Alcohol Use: Yes (OCCASIONALLY ) Tobacco Use: Yes (cigars) Substance Use: No Allergies-Medications (Allergen,Severity, Reaction): Coded Allergies: acetaminophen (Unverified Allergy, Severe, STOMACH CRAMPS, 02/08/17) propoxyphene (Unverified Allergy, Severe, STOMACH CRAMPS, 02/08/17) ibuprofen (Unverified Adverse Reaction, Severe, 02/08/17) *MDRO Multi-Drug Resistant Organism (Verified Adverse Reaction, Unknown, MRSA, 02/05/17) MRSA (wounds) - 01/02/07, 10/17/07, 10/22/08 Comments List of his allergies reviewed from the nursing note. Reported Meds & Prescriptions Reported Meds & Active Scripts Active Omeprazole 20 Mg Tab 20 Mg PO DAILY Reported Glipizide 5 Mg Tab 5 Mg PO DAILY Take 30 minutes before a meal Metformin (Metformin HCl) 1,000 Mg Tab 1,000 Mg PO BIDPC With meals Lyrica (Pregabalin) 50 Mg Cap 50 Mg PO TID Narrative Medication List of his home medications reviewed from the nursing note. Review of Systems Except as stated in HPI: all other systems reviewed are Neg Physical Exam Narrative GENERAL: Awake, alert, anxious, significant distress SKIN: Focused skin assessment warm/dry. HEAD: Atraumatic. Normocephalic. EYES: Pupils equal and round. No scleral icterus. No injection or drainage. ENT: No nasal bleeding or discharge. Mucous membranes pink and moist. NECK: Trachea midline. No JVD. CARDIOVASCULAR: Regular rate and rhythm. No murmur appreciated. RESPIRATORY: No accessory muscle use. Clear to auscultation. Breath sounds equal bilaterally. GASTROINTESTINAL: Abdomen soft, non-tender, distended. Hepatic and splenic margins not palpable. MUSCULOSKELETAL: No obvious deformities. No clubbing. No cyanosis. No edema. NEUROLOGICAL: Awake and alert. No obvious cranial nerve deficits. Motor grossly within normal limits. Normal speech. PSYCHIATRIC: Appropriate mood and affect; insight and judgment normal. Data Data Last Documented VS Vital Signs Date Time Temp Pulse Resp B/P (MAP) Pulse Ox O2 Delivery O2 Flow Rate FiO2 02/10/17 03:11 103 16 146/47 (80) 98 Room Air 02/10/17 01:06 99.3 Orders Orders Complete Blood Count With Diff (02/10/17 02:15) Comprehensive Metabolic Panel (02/10/17 02:15) Lipase (02/10/17 02:15) Prothrombin Time / Inr (Pt) (02/10/17 02:15) Urinalysis - C+S If Indicated (02/10/17 02:15) Iv Access Insert/Monitor (02/10/17 02:15) Ecg Monitoring (02/10/17 02:15) Oximetry (02/10/17 02:15) Ondansetron Inj (Zofran Inj) (02/10/17 02:15) Pantoprazole Inj (Protonix Inj) (02/10/17 02:15) Sodium Chlor 0.9% 1000 Ml Inj (Ns 1000 M (02/10/17 02:15) Sodium Chloride 0.9% Flush (Ns Flush) (02/10/17 02:15) Electrocardiogram (02/10/17 02:15) Morphine Inj (Morphine Inj) (02/10/17 02:15) Ct Abd/Pel W/O Iv Contrast (02/10/17 ) Sodium Chlor 0.9% 1000 Ml Inj (Ns 1000 M (02/10/17 03:15) Metformin (Glucophage) (02/10/17 03:30) Sodium Chlor 0.9% 1000 Ml Inj (Ns 1000 M (02/10/17 03:30) Labs Laboratory Tests Test 02/10/17 02:00 White Blood Count 10.1 TH/MM3 Red Blood Count 5.24 MIL/MM3 Hemoglobin 15.4 GM/DL Hematocrit 44.3 % Mean Corpuscular Volume 84.7 FL Mean Corpuscular Hemoglobin 29.3 PG Mean Corpuscular Hemoglobin Concent 34.6 % Red Cell Distribution Width 14.4 % Platelet Count 285 TH/MM3 Mean Platelet Volume 8.7 FL Neutrophils (%) (Auto) 74.3 % Lymphocytes (%) (Auto) 16.7 % Monocytes (%) (Auto) 8.0 % Eosinophils (%) (Auto) 0.7 % Basophils (%) (Auto) 0.3 % Neutrophils # (Auto) 7.5 TH/MM3 Lymphocytes # (Auto) 1.7 TH/MM3 Monocytes # (Auto) 0.8 TH/MM3 Eosinophils # (Auto) 0.1 TH/MM3 Basophils # (Auto) 0.0 TH/MM3 CBC Comment DIFF FINAL Differential Comment Prothrombin Time 10.6 SEC Prothromb Time International Ratio 1.0 RATIO Urine Color LIGHT-YELLOW Urine Turbidity CLEAR Urine pH 5.0 Urine Specific Trilla 1.019 Urine Protein NEG mg/dL Urine Glucose (UA) 1000 mg/dL Urine Ketones 10 mg/dL Urine Occult Blood NEG Urine Nitrite NEG Urine Bilirubin NEG Urine Urobilinogen LESS THAN 2.0 MG/DL Urine Leukocyte Esterase NEG Urine RBC LESS THAN 1 /hpf Urine WBC LESS THAN 1 /hpf Microscopic Urinalysis Comment CULT NOT INDICATED Blood Urea Nitrogen 12 MG/DL Creatinine 1.05 MG/DL Random Glucose 402 MG/DL Total Protein 7.9 GM/DL Albumin 3.9 GM/DL Calcium Level 9.2 MG/DL Alkaline Phosphatase 94 U/L Aspartate Amino Transf (AST/SGOT) 6 U/L Alanine Aminotransferase (ALT/SGPT) 15 U/L Total Bilirubin 0.7 MG/DL Sodium Level 133 MEQ/L Potassium Level 4.0 MEQ/L Chloride Level 97 MEQ/L Carbon Dioxide Level 22.8 MEQ/L Anion Gap 13 MEQ/L Estimat Glomerular Filtration Rate 90 ML/MIN Lipase 103 U/L [facility] Medical Decision Making Medical Screen Exam Complete: Yes Emergency Medical Condition: Yes Medical Record Reviewed: Yes Interpretation(s) Twelve-lead EKG was reviewed by me. Normal sinus rhythm, normal axis, nonspecific ST-T wave changes, tachycardia. Heart rate of 107 bpm. Differential Diagnosis Acute pancreatitis, acute gastritis, abdominal pain NOS Narrative Course 3:40 AM patient was given IV fluid bolus, pain medication, Protonix. Blood test result and the CAT scan report came back and they're within normal limits. Patient's blood sugar is elevated and I have given him a dose of his Glucophage. Patient has received total of 3 L of IV fluid bolus. He'll be discharged home. Procedures EKG Prior to Arrival: No Diagnosis Primary Impression: Abdominal pain Additional Impressions: Alcohol abuse Acute gastritis Hyperglycemia Referrals: Primary Care Physician 2 days Additional Instructions: He should not be drinking alcohol since obviously it causes abdominal pain for you. Take the medication as per the prescription direction. Follow-up with your primary care. You should take his diabetes medication like you've been prescribed. Med/Other Pt SpecificInfo: Prescription(s) given Scripts Omeprazole (Omeprazole) 20 Mg Tab 20 MG PO DAILY, #30 TAB 0 Refills Prov: Tony Jiang MD 02/10/17 Disposition: 01 DISCHARGE HOME Condition: Stable Tony Jiang MD Feb 10, 2017 02:35
[2017-02-10 02:37] LABS: AUTOMATED NEUTROPHIL # 7.5 TH/MM3 (1.8-7.7); BASOPHIL % 0.3 % (0.0-2.0); EOSINOPHIL # 0.1 TH/MM3 (0-0.4); EOSINOPHIL % 0.7 % (0.0-4.0); HEMATOCRIT 44.3 % (39.0-51.0); HEMO FLAGS DIFF FINAL; LYMPH % 16.7 % (9.0-44.0); LYMPHOCYTE # 1.7 TH/MM3 (1.0-4.8); MEAN CELL VOLUME 84.7 FL (80.0-100.0); MEAN CORPUSCULAR HEMOGLOBIN 29.3 PG (27.0-34.0); MEAN CORPUSCULAR HGB CONC 34.6 % (32.0-36.0); NEUT % 74.3 % (16.0-70.0); PLATELET COUNT 285 TH/MM3 (150-450); RED BLOOD COUNT 5.24 MIL/MM3 (4.50-5.90); RED CELL DISTRIBUTION WIDTH 14.4 % (11.6-17.2); WHITE BLOOD COUNT 10.1 TH/MM3 (4.0-11.0)
[2017-02-10 02:40] LABS: BLOOD, URINE NEG (NEG); GLUCOSE,URINE 1000 mg/dL (NEG); KETONE, URINE 10 mg/dL (NEG); NITRITE,URINE NEG (NEG); URINE COLOR LIGHT-YELLOW (YELLW/STRAW)
[2017-02-10 02:47] LABS: COMMENT (UR) CULT NOT INDICATED; CULTURE IF INDICATED CULT NOT INDICATED; PROTHROMBIN TIME - PATIENT 10.6 SEC (9.8-11.6)
--- NOTE | 2017-02-10 03:00 | RADRPT ---
EXAM DATE/TIME: 02/10/2017 02:43 [facility] COMPARISON: CT ABDOMEN & PELVIS W/O CONTRAST, June 15, 2015, 23:10. INDICATIONS : Diffuse abdominal pain, nausea and vomiting. ORAL CONTRAST: No oral contrast ingested. RADIATION DOSE: 15.19 CTDIvol (mGy) MEDICAL HISTORY : Pancreatitis. Hernia, hiatal. Cardiovascular diseaseGERD. Diabetes. SURGICAL HISTORY : Cholecystectomy. ENCOUNTER: Initial ACUITY: 1 day PAIN SCALE: 8/10 LOCATION: All quadrants. TECHNIQUE: Volumetric scanning of the abdomen and pelvis was performed. Using automated exposure control and ad justment of the mA and/or kV according to patient size, radiation dose was kept as low as reasonably achievable to obtain optimal diagnostic quality images. DICOM format image data is available electro nically for review and comparison. FINDINGS: LOWER LUNGS: No infiltrates in the lower lungs. LIVER: Homogeneous density without lesion for noncontrast technique. There is no dilation of the biliary tr ee. Cholecystectomy. SPLEEN: Normal size without lesion. PANCREAS: Within normal limits. KIDNEYS: Normal in size and shape. There is no mass, stone, or hydronephrosis. ADRENAL GLANDS: Within normal limits. VASCULAR: There is no aortic aneurysm. BOWEL/MESENTERY: No dilated loops of small or large bowel. ABDOMINAL WALL: Stable appearance to the fat containing umbilical hernia with separation between the rectus muscles m easuring 6 cm. RETROPERITONEUM: There is no lymphadenopathy. BLADDER: No wall thickening or mass. REPRODUCTIVE: Within normal limits. INGUINAL: There is no lymphadenopathy or hernia. MUSCULOSKELETAL: Within normal limits for patient age. CONCLUSION: No acute findings. Stable fat-containing umbilical hernia. Elio Ahmadi MD on February 10, 2017 at 2:54 Board Certified Radiologist. This report was verified electronically.
[2017-02-10 03:11] VITALS: BP 146/47; PULSE 103; RESP 16; O2SAT 98
[2017-02-10 03:12] LABS: ALKALINE PHOSPHATASE 94 U/L (45-117); ALT (GPT) 15 U/L (12-78); ANION GAP 13 MEQ/L (5-15); AST (GOT) 6 U/L (15-37); BICARBONATE 22.8 MEQ/L (21.0-32.0); BLOOD UREA NITROGEN 12 MG/DL (7-18); CHLORIDE 97 MEQ/L (98-107); GLOMERULAR FILTRATION RATE 90 ML/MIN (>89); SODIUM (NA) 133 MEQ/L (136-145); TOTAL BILIRUBIN ADULT 0.7 MG/DL (0.2-1.0)
[2017-02-10] MEDS ORDERED: SODIUM CHLOR 0.9% 1000 ML INJ 1,000 ML IV ONE ×2 (03:15→03:30)
[2017-02-10] MEDS ORDERED: metFORMIN HCL 500 MG TAB PO ONE (03:30)
[2017-02-10] MEDS ORDERED: OMEP20TA PO (04:21)
--- NOTE | 2017-02-10 09:01 | EKG ---
Date Performed: 02/10/2017 Time Performed: 02:36:52 PTAGE: 51 years EKG: SINUS TACHYCARDIA ABNORMAL RHYTHM ECG PREVIOUS TRACING : 11/17/2016 22.46 compared to the previous EKG sinus tachycardia is new DOCTOR: Yrn Felix Interpretating Date/Time 02/10/2017 08:56:31
== END 2017-02-10 05:09 | disposition home or self-care (01) ==
LOC: NEPE 01:04
DX: R10.9 Unspecified abdominal pain (principal); K29.20 Alcoholic gastritis without bleeding; F10.10 Alcohol abuse, uncomplicated; R00.0 Tachycardia, unspecified; R94.31 Abnormal electrocardiogram [ECG] [EKG]; K42.9 Umbilical hernia without obstruction or gangrene; K85.90 Acute pancreatitis without necrosis or infection, unspecified; I10 Essential (primary) hypertension; E11.40 Type 2 diabetes mellitus with diabetic neuropathy, unspecified
CPT/HCPCS: 74176; 80053; 81001; 83690; 85025; 85610; 93005; 96374; 96375; 99285; C9113; J2270; J2405; J7030